=== PATIENT | male | born 1945 | race Native Hawaiian/Other Pacific Islander ===

== ENCOUNTER 2017-09-17 21:46 | Inpatient (IN) | payer OTHER, MEDICARE ==
[2017-09-17] VITALS (7 sets, daily range): BP systolic 70–112; BP diastolic 57–64; PULSE 60–161; RESP 14–18; O2SAT 95–100
[~2017-09-17] VITALS: Ht 175.3 cm; Wt 59.6 kg
[~2017-09-17 21:46] MED LIST: AMLO10 PO; ASPI81 PO; ATOR40TA PO; CARV3.12 PO; DOCU1CAP39 PO; ISOS20TA38 PO; JANU50TA PO; LOTE10TA PO; PIOG15 PO; SYNT75TA PO; ZOCO40TA PO
[2017-09-17] MEDS ORDERED: KETAMINE HCL 500 MG/5 ML VIAL ONE (22:02)
[2017-09-17] MEDS ORDERED: SODIUM CHLOR 0.9% 1000 ML INJ 1,000 ML IV ONE (22:13)
[2017-09-17] MEDS ORDERED: ASPIRIN 81 MG CHEW TAB PO STA (22:13)
[2017-09-17] MEDS ORDERED: NITROGLYCERIN 0.4 MG SL 25 TABS/BTL SL STA (22:13)
[2017-09-17] MEDS ORDERED: AMIODARONE INJ 150 MG in DEXTROSE 5% IN WATER 100ML INJ 97 ML IV ONE ×2 (22:14)
[2017-09-17] MEDS ORDERED: SODIUM CHLORIDE 0.9% FLUSH 10 ML FLUSH IVF PRN ×2 (22:15)
[2017-09-17] MEDS ORDERED: NITROGLYCERIN-D5W 50 MG/250 ML 250 ML IV PRN (22:15)
[2017-09-17] MEDS ORDERED: KETAMINE HCL 500 MG/5 ML VIAL IV PUSH ONE (22:15)
[2017-09-17 22:28] LABS: BASOPHIL # 0.1 TH/MM3 (0-0.2); BASOPHIL % 0.7 % (0.0-2.0); EOSINOPHIL # 0.6 TH/MM3 (0-0.4); HEMATOCRIT 41.9 % (39.0-51.0); HEMOGLOBIN 13.9 GM/DL (13.0-17.0); LYMPH % 33.4 % (9.0-44.0); MEAN CORPUSCULAR HEMOGLOBIN 28.9 PG (27.0-34.0); MEAN CORPUSCULAR HGB CONC 33.2 % (32.0-36.0); MEAN PLATELET VOLUME 9.7 FL (7.0-11.0); MONO % 10.2 % (0.0-8.0); MONOCYTE # 1.2 TH/MM3 (0-0.9); NEUT % 50.7 % (16.0-70.0); PLATELET COUNT 179 TH/MM3 (150-450); RED BLOOD COUNT 4.82 MIL/MM3 (4.50-5.90); WHITE BLOOD COUNT 11.8 TH/MM3 (4.0-11.0)
[2017-09-17] MEDS ORDERED: AMIODARONE INJ 450 MG in DEXTROSE 5% IN WATE(EXCEL) INJ 241 ML IV SCH ×2 (22:29)
--- NOTE | 2017-09-17 22:29 | RADRPT ---
EXAM DATE/TIME: 09/17/2017 22:02 [place] COMPARISON: No previous studies available for comparison. INDICATIONS : Chest pain. MEDICAL HISTORY : Hypertension. Diabetes SURGICAL HISTORY : CABG. Pacemaker. ENCOUNTER: Initial ACUITY: 1 day PAIN SCORE: Non-responsive. LOCATION: Bilateral chest FINDINGS: No infiltrate, effusion or pneumothorax. Heart size within normal limits. Patient has had previous median sternotomy. There is a cardiac pacer /defibrillator. CONCLUSION: No evidence of acute cardiopulmonary disease. Eliazar Up MD on September 17, 2017 at 22:26 Board Certified Radiologist. This report was verified electronically.
[2017-09-17 22:46] LABS: INTERNATIONAL NORMALIZED RATIO 1.1 RATIO; PROTHROMBIN TIME - PATIENT 11.6 SEC (9.8-11.6)
[2017-09-17 22:47] LABS: CALCIUM 8.4 MG/DL (8.5-10.1); MAGNESIUM 2.2 MG/DL (1.5-2.5)
--- NOTE | 2017-09-17 22:48 | PD ---
HPI Chief Complaint: Chest Pain Time Seen by Provider: 21:53 Travel History International Travel<30 days: No Contact w/Intl Traveler<30days: No Traveled to known affect area: No History of Present Illness HPI History is obtained primarily from the , there is some language barrier, patient is critically ill on presentation limiting some of the history. 71-year-old man, from records has a history of CAD, hypertension, hyperlipidemia. later gives history that he is CHF with an EF of about 20% . He follows with Dr. Moran. Patient apparently was well until dinner tonight he had an episode where he twitched somnolent and slumped over. shook him and he quickly revived. States he felt okay at that time. They went to bed a began feeling progressively weaker, and feeling poorly, and asked to be taken to the hospital. Patient reports some chest pain shortness of breath and feeling poorly. History Past Medical History Narrative Medical From review of records: CAD, CABG, on exam has AICD Hypertension on hyperlipidemia Diabetes Hypothyroidism SBO Tetanus Vaccination: Unknown Influenza Vaccination: No Social History Alcohol Use: No Tobacco Use: No Allergies-Medications (Allergen,Severity, Reaction): Coded Allergies: No Known Allergies (Verified , 03/15/16) Reported Meds & Prescriptions Reported Meds & Active Scripts Active Colace 100 Mg Cap (Docusate Sodium) 100 Mg Cap 100 Mg PO BID Don't take if you have diarrhea. Reported Actos 15 mg (Pioglitazone HCl) 15 Mg Tab 1 Tab PO DAILY Carvedilol 3.125 mg (Carvedilol) 3.125 Mg Tab 1 Tab PO BID Januvia (Sitagliptin Phosphate) 50 Mg Tab 50 Mg PO DAILY Synthroid 75 mcg (Levothyroxine Sodium) 75 Mcg Tab 25 Mcg PO DAILY Atorvastatin 40 mg (Atorvastatin Calcium) 40 Mg Tab 40 Mg PO HS Isosorbide Mononitrate 20 Mg Tab 30 Mg PO DAILY Norvasc (Amlodipine Besylate) 10 Mg Tab 10 Mg PO DAILY Zocor 40 mg (Simvastatin) 40 Mg Tab 40 Mg PO HS Aspirin 81 Mg Tab 81 Mg PO DAILY Lotensin (Benazepril HCl) 10 Mg Tab 10 Mg PO DAILY Review of Systems ROS Limitations: Clinical Condition Physical Exam Narrative GENERAL: Ill-appearing 71-year-old man, SKIN: Clammy, mottled. HEAD: Atraumatic. Normocephalic. EYES: Pupils equal and round. No scleral icterus. No injection or drainage. ENT: No nasal bleeding or discharge. Mucous membranes pink and moist. NECK: Trachea midline. No JVD. CARDIOVASCULAR: Thready pulses, extremely rapid. Poorly perfused. RESPIRATORY: Tachypnea, mild/moderate respiratory distress. GASTROINTESTINAL: Abdomen soft, non-tender, nondistended. Hepatic and splenic margins not palpable. MUSCULOSKELETAL: No obvious deformities. No edema. NEUROLOGICAL: Little bit listless was a some decreased alertness. Moves all extremities. Data Data Last Documented VS Vital Signs Date Time Temp Pulse Resp B/P (MAP) Pulse Ox O2 Delivery O2 Flow Rate FiO2 09/17/17 23:44 60 16 106/64 (78) 99 Nasal Cannula 2.00 Orders Orders Ketamine Inj (Ketalar Inj) (09/17/17 22:02) Troponin I (09/17/17 22:13) Ckmb (Isoenzyme) Profile (09/17/17 22:13) Complete Blood Count With Diff (09/17/17 22:13) I-Stat Profile (09/17/17 22:13) I-Stat Creatinine (09/17/17 22:13) Calcium (09/17/17 22:13) Magnesium (Mg) (09/17/17 22:13) Prothrombin Time / Inr (Pt) (09/17/17 22:13) Act Partial Throm Time (Ptt) (09/17/17 22:13) B-Type Natriuretic Peptide (09/17/17 22:13) Chest, Single Ap (09/17/17 22:13) Electrocardiogram (09/17/17 22:13) Oxygen Administration (09/17/17 22:13) Iv Access Insert/Monitor (09/17/17 22:13) Oximetry (09/17/17 22:13) Sodium Chlor 0.9% 1000 Ml Inj (Ns 1000 M (09/17/17 22:13) Sodium Chloride 0.9% Flush (Ns Flush) (09/17/17 22:15) Aspirin Chew (Aspirin Chew) (09/17/17 22:13) Nitroglycerin Sl (Nitrostat Sl) (09/17/17 22:13) Nitroglycerin-D5w 50 Mg/250 Ml (Nitrogly (09/17/17 22:15) Ketamine Inj (Ketalar Inj) (09/17/17 22:15) Ecg Monitoring (09/17/17 22:14) Blood Pressure (09/17/17 22:14) Vital Signs (09/17/17 22:14) Iv Access Insert/Monitor (09/17/17 22:14) Dextrose 5% In Wate... W/Amiodarone Inj (09/17/17 22:14) Dextrose 5% In Wate... W/Amiodarone Inj (09/17/17 22:29) Sodium Chloride 0.9% Flush (Ns Flush) (09/17/17 22:15) Electrocardiogram (09/17/17 ) Electrocardiogram (09/17/17 ) Comprehensive Metabolic Panel (09/17/17 22:28) Consult Cardiology (09/18/17 ) Cbc No Diff, Includes Plts (09/19/17 05:00) Cbc No Diff, Includes Plts (09/20/17 05:00) Cbc No Diff, Includes Plts (09/21/17 05:00) Cbc No Diff, Includes Plts (09/22/17 05:00) Cbc No Diff, Includes Plts (09/23/17 05:00) Cbc No Diff, Includes Plts (09/24/17 05:00) Cbc No Diff, Includes Plts (09/25/17 05:00) Basic Metabolic Panel (Bmp) (09/19/17 05:00) Basic Metabolic Panel (Bmp) (09/20/17 05:00) Basic Metabolic Panel (Bmp) (09/21/17 05:00) Basic Metabolic Panel (Bmp) (09/22/17 05:00) Basic Metabolic Panel (Bmp) (09/23/17 05:00) Basic Metabolic Panel (Bmp) (09/24/17 05:00) Basic Metabolic Panel (Bmp) (09/25/17 05:00) ^ Medication Admin Instruction (09/18/17 00:26) Notify Dr: Other (09/18/17 00:26) Potassium Chlor 40 Meq Premix (Kcl 40 Me (09/18/17 00:30) Potassium Chlor 20 Meq Premix (Kcl 20 Me (09/18/17 00:30) Potassium Chloride Eff (K-Lyte Cl Eff) (09/18/17 00:30) Potassium Chlor 40 Meq Premix (Kcl 40 Me (09/18/17 00:30) Potassium Chlor 20 Meq Premix (Kcl 20 Me (09/18/17 00:30) Magnesium Sulfate Inj (Magnesium Sulfate (09/18/17 00:30) Magnesium Oxide (Mag-Ox) (09/18/17 00:30) Magnesium Sulfate Inj (Magnesium Sulfate (09/18/17 00:30) Potassium Phosphate (K-Phos) (09/18/17 00:30) Sodium Phosphate Inj (Sodium Phosphate I (09/18/17 00:30) Potassium Phosphate (K-Phos) (09/18/17 00:30) Potassium Phosphate Inj (Potassium Phosp (09/18/17:30) Inpatient Certification (09/18/17:) Resp Ezpap/Pep Therapy (09/18/17:) Resp Acapella/Pep/Chest Vibra (09/18/17:) Resp Incentive Spirometry (09/18/17:) Code Status (09/18/17:) Vital Signs (Adult) FAROOQ.Q1H (09/18/17:26) Activity Bed Rest (09/18/17:) Elevate Head Of Bed (09/18/17:) Neuro Checks . ORDERED (09/18/17:) Acetaminophen (Tylenol) (09/18/17 00:30) Albuterol-Ipratropium Neb (Duoneb Neb) (09/18/17 00:30) Cabinet Abrasive Sandblaster / Telemetry FAROOQ.Q8H (09/18/17:26) Heparin Inj (Heparin Inj) (09/18/17 00:30) Scd Bilateral/Knee High FAROOQ.BID (09/18/17 00:26) ^ Initiate Protocol (09/18/17:) Instruction (09/18/17:) [facility] Nursing Information (09/18/17 00:30) Chlorhexidine 2% Cloth (Chlorhexidine 2% (09/18/17 04:00) Chlorhexidine 2% Cloth (Chlorhexidine 2% (09/18/17 00:30) Mrsa Pcr Surveillance (09/18/17 00:26) Docusate Sodium-Senna (Shayy-Colace) (09/18/17 09:00) Magnesium Hydroxide Liq (Milk Of Magnesi (09/18/17 00:30) Diet Clear Liquid (09/18/17 Breakfast) Amlodipine (Norvasc) (09/18/17 09:00) Aspirin Chew (Aspirin Chew) (09/18/17 09:00) Carvedilol (Coreg) (09/18/17 09:00) Isosorbide Mononitrate (Ismo) (09/18/17 09:00) Levothyroxine (Synthroid) (09/18/17 09:00) (Nf) Atorvastatin 40 Mg (09/18/17 21:00) (Nf) Benazepril Hcl (Lotensin) (09/18/17 09:00) Bedside Glucose FAROOQ.CSUGAR&03 (09/18/17 00:30) Blood Glucose Goal (Criteria) (09/18/17 00:30) Hypoglycemia 51 - 69 Mg/Dl (09/18/17 00:30) Hypoglycemia 50 Mg/Dl Or < (09/18/17 00:30) Notify Dr: Other (09/18/17 00:30) Dextrose 50% In Josue (Vial) Inj (D50w (Vi (09/18/17 00:30) Insulin Human Reg Supp Scale (Novolin R (09/18/17 03:00) Admit Order (Ed Use Only) (09/18/17 ) Labs Laboratory Tests Test 09/17/17 22:10 White Blood Count 11.8 TH/MM3 Red Blood Count 4.82 MIL/MM3 Hemoglobin 13.9 GM/DL Bedside Hemoglobin 14.6 G/DL Hematocrit 41.9 % Bedside Hematocrit 43.0 % Mean Corpuscular Volume 87.0 FL Mean Corpuscular Hemoglobin 28.9 PG Mean Corpuscular Hemoglobin Concent 33.2 % Red Cell Distribution Width 15.0 % Platelet Count 179 TH/MM3 Mean Platelet Volume 9.7 FL Neutrophils (%) (Auto) 50.7 % Lymphocytes (%) (Auto) 33.4 % Monocytes (%) (Auto) 10.2 % Eosinophils (%) (Auto) 5.0 % Basophils (%) (Auto) 0.7 % Neutrophils # (Auto) 6.0 TH/MM3 Lymphocytes # (Auto) 4.0 TH/MM3 Monocytes # (Auto) 1.2 TH/MM3 Eosinophils # (Auto) 0.6 TH/MM3 Basophils # (Auto) 0.1 TH/MM3 CBC Comment AUTO DIFF Differential Comment AUTO DIFF CONFIRMED Platelet Estimate NORMAL Platelet Morphology Comment NORMAL Acanthocytes OCC Keratocytes OCC Prothrombin Time 11.6 SEC Prothromb Time International Ratio 1.1 RATIO Activated Partial Thromboplast Time 27.3 SEC Bedside Sodium 137 MMOL/L Blood Urea Nitrogen 18 MG/DL Creatinine 2.24 MG/DL Random Glucose 282 MG/DL Total Protein 7.5 GM/DL Albumin 3.5 GM/DL Calcium Level 8.6 MG/DL Alkaline Phosphatase 75 U/L Aspartate Amino Transf (AST/SGOT) 19 U/L Alanine Aminotransferase (ALT/SGPT) 17 U/L Total Bilirubin 0.4 MG/DL Sodium Level 135 MEQ/L Potassium Level 4.7 MEQ/L Chloride Level 104 MEQ/L Carbon Dioxide Level 24.0 MEQ/L Bedside Potassium 4.7 MMOL/L Bedside Chloride 102 MMOL/L Anion Gap 7 MEQ/L Bedside Blood Urea Nitrogen 19 MG/DL Bedside Creatinine 2.0 MG/DL Estimat Glomerular Filtration Rate 29 ML/MIN Bedside Glucose 275 MG/DL Magnesium Level 2.2 MG/DL Total Creatine Kinase 96 U/L Troponin I 0.44 NG/ML B-Type Natriuretic Peptide 381 PG/ML MDM Medical Decision Making Medical Screen Exam Complete: Yes Emergency Medical Condition: Yes Interpretation(s) My review of initial EK: Regular wide-complex rhythm, concern for tachycardia with aberrancy and ST elevations, particularly given the appearance of V4, 3 and aVF. Favor ventricular tachycardia however. Early in the tracing seen in lead 2 there appears to be a fusion complex would suggest V. tach. My review of repeat EKG following cardioversion at 2205, sinus tachycardia at a rate of 96, irregular narrow complex rhythm rate 96, likely sinus although P waves are difficult to completely visualize, LVH with lateral T wave inversions My review of repeat EKG at 2258, ventricular paced at a rate of 74. Chest x-ray: No evidence of acute cardiopulmonary disease. LABS: CBC remarkable for mildly elevated white count. Point of care chemistries remarkable for mildly elevated creatinine, mildly elevated glucose Troponin BNP Coags unremarkable. Differential Diagnosis STEMI, V. tach, electrolyte abnormality, other Narrative Course Medical decision making the 71-year-old man, presents via private vehicle, ill-appearing, with abnormal EKG suggestive of V. tach versus less likely tachycardia with aberrancy or ST elevations. STEMI alert was called after reviewed the patient's initial EKG. Patient was markedly hypotensive, with chest pain. Amiodarone was given. Decision was made to proceed with emergent cardioversion. Patient was given 150 mg of ketamine for sedation, underwent synchronized cardioversion at 200 J. Patient responded well. He did have a period of desaturation immediately related to the ketamine her to procedure. This was short-lived, lasting seconds with a katy in the 60s SPO2. This resolved with nonrebreather and time. Does not require any assisted ventilation. Repeat EKG was performed. I discussed with Dr. Orr, reception manager STEMI editor news. Decision was made given repeat EKG to cancel STEMI alert. Amiodarone drip will be continued. We' ll start heparin pending platelet count. Admission to the ICU. Critical Care Narrative Aggregate critical care time was 40 minutes. Time to perform other separately billable procedures was not included in the critical care time. My time did not include minutes spent treating any other patients simultaneously or on activities that did not directly contribute to the patient's treatment. The services I provided to this patient were to treat and/or prevent clinically significant deterioration that could result in: , respiratory failure, MN, unrecognized arrhythmia. I provided critical care services requiring my management, as noted below: Chart data review, documentation time, medication orders and management, vital sign assessments/reviewing monitor data, ordering and reviewing lab tests, ordering and interpreting/reviewing x-rays and diagnostic studies, care of the patient and discussion of the patient with the admitting physicians. Procedures Procedure Narrative After the risks and benefits were discussed the following procedure was performed: MODERATE SEDATION: The patient was placed on a alarm security or surveillance monitor and pulse oximetry. An ambu bag and suction was immediately available at bedside. The patient was monitored by the nurse. Oxygen saturation, heart rate and blood pressure were monitored. Procedural sedation was acheived using ketamine. The patient was observed until awake and alert. Procedural Sedation time in attendance was 15 minutes. SYNCHRONIZED CARDIOVERSION: Patient required emergent cardioversion due to unstable V. tach. Pads were placed. Patient was sedated with ketamine. Cigarettes cardioversion was undertaken with at 200 J. Patient responded well. Short period of hypoxia likely related to apnea resolve spontaneously without need for assisted ventilation. Diagnosis Primary Impression: Ventricular tachycardia Admitting Information Admitting Physician Requests: Admit Emanuel Keith MD Sep 17, 2017 22:48
[2017-09-17 22:50] LABS: TROPONIN I 0.44 NG/ML (0.02-0.05)
[2017-09-17 22:58] LABS: ACANTHOCYTES OCC (NORMAL); KERATOCYTES OCC (NORMAL)
[2017-09-18] VITALS (10 sets, daily range): BP systolic 111–131; BP diastolic 57–78; PULSE 59–60; RESP 16–22; TEMP 98.2–98.7; O2SAT 94–97
[2017-09-18 00:11] LABS: ALBUMIN 3.5 GM/DL (3.4-5.0); ALT (GPT) 17 U/L (12-78); AST (GOT) 19 U/L (15-37); BLOOD UREA NITROGEN 18 MG/DL (7-18); CALCIUM 8.6 MG/DL (8.5-10.1); CHLORIDE 104 MEQ/L (98-107); CREATININE 2.24 MG/DL (0.60-1.30); GLOMERULAR FILTRATION RATE 29 ML/MIN (>89); GLUCOSE,RANDOM 282 MG/DL (74-106); SODIUM (NA) 135 MEQ/L (136-145)
[2017-09-18 00:14] LABS: ALKALINE PHOSPHATASE 75 U/L (45-117); TOTAL BILIRUBIN ADULT 0.4 MG/DL (0.2-1.0); TOTAL PROTEIN 7.5 GM/DL (6.4-8.2)
[2017-09-18] MEDS ORDERED: POTASSIUM PHOSPHATE MONOBASIC 500 MG TAB PO PRN (00:30)
[2017-09-18] MEDS ORDERED: POTASSIUM CHLORIDE 25 MEQ EFFERVESCENT TAB PO PRN (00:30)
[2017-09-18] MEDS ORDERED: ACETAMINOPHEN 325 MG TAB PO PRN (00:30)
[2017-09-18] MEDS ORDERED: POTASSIUM CHLOR 40 MEQ PREMIX 100 ML IV PRN ×2 (00:30)
[2017-09-18] MEDS ORDERED: RESP: ALBUTEROL 2.5 MG/IPRATROPIUM 0.5 MG NEB (PRN) INH (00:30)
[2017-09-18] MEDS ORDERED: MAGNESIUM SULFATE INJ 4 GM in SODIUM CHLORIDE 0.9% INJ 92 ML IV PRN (00:30)
[2017-09-18] MEDS ORDERED: MISCELLANEOUS NURSING INFORMATION XX SCH (00:30)
[2017-09-18] MEDS ORDERED: POTASSIUM CHLOR 20 MEQ PREMIX 100 ML IV PRN ×2 (00:30)
[2017-09-18] MEDS ORDERED: POTASSIUM PHOSPHATE INJ 30 MMOL in SODIUM CHLOR 0.9% 250 ML INJ 250 ML IV PRN (00:30)
[2017-09-18] MEDS ORDERED: DEXTROSE 50% IN WATER 50 ML VIAL(D50) IV PUSH PRN (00:30)
[2017-09-18] MEDS ORDERED: MAGNESIUM OXIDE 400 MG TAB PO PRN (00:30)
[2017-09-18] MEDS ORDERED: CHLORHEXIDINE GLUCONATE 2 % 1 PACK (2 CLOTHS) TOP PRN (00:30)
[2017-09-18] MEDS ORDERED: SODIUM PHOSPHATE INJ 30 MMOL in SODIUM CHLOR 0.9% 250 ML INJ 240 ML IV PRN (00:30)
[2017-09-18] MEDS ORDERED: MAGNESIUM SULFATE INJ 2 GM in SODIUM CHLORIDE 0.9% INJ 96 ML IV PRN (00:30)
[2017-09-18] MEDS ORDERED: MAGNESIUM HYDROXIDE SUSP 30 ML CUP PO PRN (00:30)
[2017-09-18] MEDS ORDERED: POTASSIUM PHOSPHATE MONOBASIC 500 MG TAB PO/TUBE PRN (00:30)
--- NOTE | 2017-09-18 00:38 | HHI.HP ---
HPI Service Critical Care Medicine Primary Care Physician Unknown Admission Diagnosis V. tach Diagnosis: Chief Complaint: fatigue Travel History International Travel<30 Days: No Contact w/Intl Traveler <30 Da: No Traveled to Known Affected Are: No History of Present Illness The patient has a significant language barrier, and cannot answer a full detailed history. The patient's has left for the night and so additional information is not obtainable from her, as was previously documented by the ER physician. The history is obtained by the medical record. This is a 71yM with history of CAD, HTN, HLD and s/p AICD placement, with EF ~20%. He is a patient of Dr. De La Cruz. He presented to the ED with complaints of sudden onset of altered mental status and "slumping over" at dinner. On arrival to the emergency department, he was found to be in a wide-complex tachycardia at a rate of ~160. He was hypotensive with this and was electrically cardioverted back into a narrow complex rhythm. Cardiology was called and did not feel this was a STEMI or needed emergent heart catheterization. The patient does appear to complain of chest pain post-cardioversion, but difficult to tell whether this is secondary to cardioversion or not. According to reports, he had not complained of chest pain prior to cardioversion. Review of Systems ROS Limitations: Language Barrier Past Family Social History Allergies: Coded Allergies: No Known Allergies (Verified , 03/15/16) Past Medical History CAD HTN HLD DM Hypothyroidism Small bowel obstruction Past Surgical History CABG AICD Reported Medications Colace 100 Mg Cap (Docusate Sodium) 100 Mg Cap 100 Mg PO BID Don't take if you have diarrhea. Actos 15 mg (Pioglitazone HCl) 15 Mg Tab 1 Tab PO DAILY Carvedilol 3.125 mg (Carvedilol) 3.125 Mg Tab 1 Tab PO BID Januvia (Sitagliptin Phosphate) 50 Mg Tab 50 Mg PO DAILY Synthroid 75 mcg (Levothyroxine Sodium) 75 Mcg Tab 25 Mcg PO DAILY Atorvastatin 40 mg (Atorvastatin Calcium) 40 Mg Tab 40 Mg PO HS Isosorbide Mononitrate 20 Mg Tab 30 Mg PO DAILY Norvasc (Amlodipine Besylate) 10 Mg Tab 10 Mg PO DAILY Zocor 40 mg (Simvastatin) 40 Mg Tab 40 Mg PO HS Aspirin 81 Mg Tab 81 Mg PO DAILY Lotensin (Benazepril HCl) 10 Mg Tab 10 Mg PO DAILY Active Ordered Medications See MAR Family History reviewed and found to be noncontributory to his acute illness. Social History denies tob or etoh Physical Exam Vital Signs Vital Signs Date Time Temp Pulse Resp B/P (MAP) Pulse Ox O2 Delivery O2 Flow Rate FiO2 09/17/17 23:44 60 16 106/64 (78) 99 Nasal Cannula 2.00 09/17/17 23:00 61 114/70 09/17/17 22:43 65 104/65 09/17/17 22:27 16 99 Nasal Cannula 2.00 09/17/17 22:23 16 96 Nasal Cannula 2.00 09/17/17 22:20 81 14 112/64 (80) 100 Non-Rebreather 09/17/17 22:20 98 Non-Rebreather 15.00 09/17/17 22:19 161 139/96 09/17/17 22:03 161 18 70/57 (61) 98 09/17/17 21:55 161 18 96 Room Air 09/17/17 21:53 160 09/17/17 21:48 160 16 95 Physical Exam GENERAL: Frail elderly male, lying in bed, no acute distress HEENT: Normocephalic. Atraumatic. Pupils equal, round, reactive, conjugate. Mucous membranes are moist NECK: Trachea is midline. There is no JVD. CHEST: Unlabored. Equal chest rise. 1 L nasal cannula CARDIOVASCULAR: Normal rate, regular rhythm. Narrow complex rhythm in the 60s. Appears to be a paced rhythm. ABDOMEN: Soft, nontender, nondistended. No guarding. MUSCULOSKELETAL: Pulses 2+. No peripheral edema. NEUROLOGICAL: RASS -1. Arousing from sedation. No focal deficits. Laboratory Laboratory Tests Test 09/17/17 22:10 White Blood Count 11.8 Red Blood Count 4.82 Hemoglobin 13.9 Bedside Hemoglobin 14.6 Hematocrit 41.9 Bedside Hematocrit 43.0 Mean Corpuscular Volume 87.0 Mean Corpuscular Hemoglobin 28.9 Mean Corpuscular Hemoglobin Concent 33.2 Red Cell Distribution Width 15.0 Platelet Count 179 Mean Platelet Volume 9.7 Neutrophils (%) (Auto) 50.7 Lymphocytes (%) (Auto) 33.4 Monocytes (%) (Auto) 10.2 Eosinophils (%) (Auto) 5.0 Basophils (%) (Auto) 0.7 Neutrophils # (Auto) 6.0 Lymphocytes # (Auto) 4.0 Monocytes # (Auto) 1.2 Eosinophils # (Auto) 0.6 Basophils # (Auto) 0.1 CBC Comment AUTO DIFF Differential Comment AUTO DIFF CONFIRMED Platelet Estimate NORMAL Platelet Morphology Comment NORMAL Acanthocytes OCC Keratocytes OCC Prothrombin Time 11.6 Prothromb Time International Ratio 1.1 Activated Partial Thromboplast Time 27.3 Bedside Sodium 137 Blood Urea Nitrogen 18 Creatinine 2.24 Random Glucose 282 Total Protein 7.5 Albumin 3.5 Calcium Level 8.6 Alkaline Phosphatase 75 Aspartate Amino Transf (AST/SGOT) 19 Alanine Aminotransferase (ALT/SGPT) 17 Total Bilirubin 0.4 Sodium Level 135 Potassium Level 4.7 Chloride Level 104 Carbon Dioxide Level 24.0 Bedside Potassium 4.7 Bedside Chloride 102 Anion Gap 7 Bedside Blood Urea Nitrogen 19 Bedside Creatinine 2.0 Estimat Glomerular Filtration Rate 29 Bedside Glucose 275 Magnesium Level 2.2 Total Creatine Kinase 96 Troponin I 0.44 B-Type Natriuretic Peptide 381 Result Diagram: 09/17/17220909/17/172209 Imaging Last Impressions Chest X-Ray 09/17/172212 Signed Impressions: Service Date/Time: Sunday, September 17, 2017 22:02 - CONCLUSION: No evidence of acute cardiopulmonary disease. Eliazar Up MD Caprini VTE Risk Assessment Caprini VTE Risk Assessment: Mod/High Risk (score >= 2) Caprini Risk Assessment Model Point Value = 1 Point Value = 2 Point Value = 3 Point Value = 5 Age 41-60 Minor surgery BMI > 25 kg/m2 Swollen legs Varicose veins or History of unexplained or recurrent spontaneous Oral contraceptives or hormone replacement Sepsis (< 1 month) Serious lung disease, including pneumonia (< 1 month) Abnormal pulmonary function Acute myocardial infarction Congestive heart failure (< 1 month) History of inflammatory bowel disease Medical patient at bed rest Age 61-74 Arthroscopic surgery Major open surgery (> 45 min) Laparoscopic surgery (> 45 min) Malignancy Confined to bed (> 72 hours) Immobilizing plaster cast Central venous access Age >= 75 History of VTE Family history of VTE Factor V Leiden Prothrombin [id number] Lupus anticoagulant Anticardiolipin antibodies Elevated serum homocysteine Heparin-induced thrombocytopenia Other congenital or acquired thrombophilia Stroke (< 1 month) Elective arthroplasty Hip, pelvis, or leg fracture Acute spinal cord injury (< 1 month) Prophylaxis Regimen Total Risk Factor Score Risk Level Prophylaxis Regimen 0-1 Low Early ambulation 2 Moderate Order ONE of the following: *Sequential Compression Device (SCD) *Heparin 5000 units SQ BID 3-4 Higher Order ONE of the following medications: *Heparin 5000 units SQ TID *Enoxaparin/Lovenox 40 mg SQ daily (WT < 150 kg, CrCl > 30 mL/min) *Enoxaparin/Lovenox 30 mg SQ daily (WT < 150 kg, CrCl > 10-29 mL/min) *Enoxaparin/Lovenox 30 mg SQ BID (WT < 150 kg, CrCl > 30 mL/min) AND/OR *Sequential Compression Device (SCD) 5 or more Highest Order ONE of the following medications: *Heparin 5000 units SQ TID (Preferred with Epidurals) *Enoxaparin/Lovenox 40 mg SQ daily (WT < 150 kg, CrCl > 30 mL/min) *Enoxaparin/Lovenox 30 mg SQ daily (WT < 150 kg, CrCl > 10-29 mL/min) *Enoxaparin/Lovenox 30 mg SQ BID (WT < 150 kg, CrCl > 30 mL/min) AND *Sequential Compression Device (SCD) Assessment and Plan Assessment and Plan Assessment: 71yM with cardiomyopathy and AICD placement who presents with hemodynamically significant V. Tach. Likely rate was too slow for AICD to fire. Will interrogate AICD in the AM. consult cardiology. continue amio drip. would consider lidocaine drip as second line agent if v. tach continues. trend troponins, although these almost certainly will rise given recent cardioversion. unlikely to be ACS: will not heparinize at this point. Admit to ICU for close monitoring. Hemodynamically Unstable Ventricular Tachycardia - consult cardiology: Dr. Miner or colleague - interrogate AICD in the AM - amiodarone drip - telemetry - admit to ICU Hypertension - continue anti-hypertensives Diabetes - SSI - hold oral hypoglycemics Hypothyroidism - continue home synthroid Hyperlipidemia - continue home statin SCDs, SQH no indication for GI prophylaxis at this time. Clear liquid diet in case procedures or additional cardioversions are needed. Admit to ICU. Saeed Mares MD Sep 18, 2017 00:38
[2017-09-18] MEDS: HEPARIN SODIUM - SQ 10,000 UNITS/ML VIAL SQ SCH ×3 (01:23→16:39)
[2017-09-18] MEDS: INSULIN NovoLIN REGULAR SUPPLEMENTAL SCALE SQ SCH ×5 (04:00→21:00)
[2017-09-18] MEDS: CHLORHEXIDINE GLUCONATE 2 % 1 PACK (2 CLOTHS) TOP SCH (04:00)
[2017-09-18] MEDS ORDERED: HEPARIN 25,000 UNITS-D5W 250 ML - PREMIX IV PRN (06:15)
[2017-09-18] MEDS: AMIODARONE INJ 450 MG in SODIUM CHLOR 0.9% (EXCEL) INJ 250 ML IV SCH ×2 (06:30→13:28)
[2017-09-18] MEDS ORDERED: LEVOTHYROXINE SODIUM 75 MCG TAB PO SCH (07:00)
[2017-09-18] MEDS ORDERED: ISOSORBIDE MONONITRATE 20 MG TAB PO SCH (07:00)
[2017-09-18] MEDS ORDERED: HEPARIN-NS/PF INJ 500 ML ONE (08:42)
[2017-09-18] MEDS ORDERED: MIDAZOLAM HCL 2 MG/2 ML VIAL ONE (08:54)
[2017-09-18] MEDS ORDERED: CARVEDILOL 3.125 MG TAB PO SCH (09:00)
[2017-09-18] MEDS ORDERED: LISINOPRIL 10 MG TAB PO SCH (09:00)
[2017-09-18] MEDS: DOCUSATE SODIUM 50 MG/SENNA 8.6 MG TAB PO SCH ×2 (09:00→21:00)
--- NOTE | 2017-09-18 09:15 | MB ---
cc: RADHA LINARES M.D. DATE OF CONSULTATION: 09/18/2017 REASON FOR CONSULTATION: Abnormal cardiac enzymes, ventricular tachycardia. REASON FOR CONSULTATION Abnormal cardiac enzymes, ventricular tachycardia. HISTORY OF PRESENT ILLNESS History is somewhat difficult to elicit from the patient due to language barrier. He is a 71-year-old male with a history of severe ischemic cardiomyopathy, coronary artery disease, hypertension, paroxysmal atrial fibrillation, paroxysmal ventricular tachycardia, who apparently was brought into the hospital after possible near-loss of consciousness. In the emergency department, he was found to be in a wide-complex tachycardia and cardioverted to a paced rhythm. The patient does state he may have lost consciousness briefly last evening. He also states he has been having bilateral chest discomforts most of the day yesterday and now, right-sided chest pains this morning. He denies shortness of breath, pedal edema, palpitations, paroxysmal nocturnal dyspnea, fevers. He reports compliance with his medications. Troponin level this morning was found to be 27.1. PAST MEDICAL HISTORY 1. Coronary artery disease status post inferior myocardial infarction January 2006 with cardiac catheterization at that time showing severe three-vessel coronary artery disease leading to bypass surgery with a left internal mammary artery to the LAD, vein graft to the diagonal, vein graft to the obtuse marginal, vein graft to the posterior descending artery. All of his vein grafts have subsequently been found to be totally occluded. On his last heart catheterization 05/2011, there was minimal left main disease, totally occluded proximal LAD, 99% proximal and mid diagonal disease, 70% ostial obtuse marginal (small), diffuse 30-40% right coronary disease, patent left internal mammary artery to the LAD. 2. Status post Biotronik AICD implant July 2011. 3. Hyperlipidemia. 4. Hypertension. 5. Paroxysmal atrial fibrillation. 6. Paroxysmal ventricular tachycardia after his bypass surgery. MEDICATIONS His cardiac medications at home: 1. Amlodipine 10 mg q.d. 2. Aspirin 81 mg q.d. 3. Benazepril HCT 07/04.5 one q.d. 4. Carvedilol 3.125 mg b.i.d. 5. Isosorbide mononitrate 30 mg q.d. 6. Simvastatin 40 mg q.h.s. 7. Xarelto 20 mg q.d. ALLERGIES NO KNOWN DRUG ALLERGIES. FAMILY HISTORY Noncontributory. SOCIAL HISTORY The patient is a former smoker. There is no history of alcohol abuse. REVIEW OF SYSTEMS Review of systems as in the history of present illness, otherwise negative or noncontributory. He also denies abdominal pain, melena, dyspepsia, headache, bright red blood per rectum. PHYSICAL EXAMINATION On physical examination: VITAL SIGNS: Blood pressure 110/66 with a pulse of 60, respirations 18. GENERAL: In general, he is a well-developed thin, male in no acute distress. HEENT: On HEENT examination, jugular venous pressure is normal. Carotid pulses are 2+ bilaterally and without bruits. CHEST: Examination of the chest reveals clear lung stanley. CARDIAC: On cardiac examination he has a regular rhythm and rate without S3-S4 or murmur. ABDOMEN: On abdominal examination he has a soft, nontender abdomen. Bowel sounds are present. There is no definite hepatosplenomegaly. EXTREMITIES: Examination of the extremities reveals no clubbing, cyanosis or edema. EKG from 09/17/17 at 09:56 p.m. shows wide-complex tachycardia, ST abnormality, consider acute anterolateral infarct. LABORATORY DATA: Laboratory data includes: troponin 27.10, BUN 18, creatinine 2.24, potassium 4.7, CK 96, WBC 11.8, hemoglobin 13.9; platelets 179. X-RAYS: Chest x-ray shows no acute disease. IMPRESSION Acute myocardial infarction, sustained ventricular tachycardia in a 71-year-old male with a history of severe ischemic cardiomyopathy, coronary disease, paroxysmal atrial fibrillation, hypertension, hyperlipidemia. At this time, he appears to have ongoing chest discomforts. His initial EKG did show probable ventricular tachycardia. Despite the wide-complex morphology, there is suggestion of anterolateral ST elevation on EKG, and the patient continues to have chest pains at this time. I doubt the elevation in troponin is due to the defibrillatory shock he received last night. He does have renal insufficiency, contributing in part to the troponin rise. Interrogation of his AICD is pending. At this point, there is no definite evidence for congestive heart failure. In light of his ongoing chest pains and substantial rise in his troponin level this morning, he has been recommended cardiac catheterization with possible percutaneous coronary intervention. The increased risk of dye induced renal failure has been emphasized to the patient. He agrees to proceed. RECOMMENDATIONS 1. Cardiac catheterization this morning with attempts to minimize dye load and using the DyeVert device. 2. Continue his usual home cardiac medications except hold Xarelto for now and stop his ELIZABETH inhibitor. 3. Agree with continuing intravenous amiodarone. MD WANG Alvarez/DORCAS /8:08 AM /8:32 AM MTDLedy
[2017-09-18] MEDS ORDERED: SODIUM CHLOR 0.9% 1000 ML INJ 1,000 ML IV SCH (09:21)
[2017-09-18] MEDS ORDERED: SODIUM CHLOR 0.9% 250 ML INJ 250 ML IV PRN (09:30)
[2017-09-18] MEDS ORDERED: ATROPINE SULFATE 1 MG/ML VIAL IV PRN (09:30)
--- NOTE | 2017-09-18 09:37 | MA ---
cc: JAYDEN LINARES DATE 09/18/2017 PROCEDURE Selective coronary and graft angiography. PROCEDURE NOTE The patient was brought to the cardiac catheterization laboratory in a fasting state after having signed informed consent with ongoing chest pains and a troponin level of 27.1. The right groin was prepped and draped as per policy and anesthetized with 1% lidocaine. Arterial access was obtained via the right femoral artery and a 6-Honduran sheath placed. Coronary arteriography was performed using 6-Honduran Sandi left 4.0 and right progressive catheters. The left internal mammary artery was engaged with the progressive right catheter. Left ventriculography was not done due to the patient's elevated creatinine. There were no apparent immediate complications. His arteriotomy site was closed with Vascade with the achievement of good hemostasis. HEMODYNAMIC DATA Aorta 110/60. CORONARY ARTERIOGRAPHY Attempts were made to minimize dye load due to the patient's elevated creatinine. A divert device was also used. A total of 57 cc of contrast was used for the case. The left main has approximately 40% distal stenosis. The left anterior descending is totally occluded proximally. A diffusely and severely diseased small diagonal arises from the proximal LAD, and this diagonal has 90-95% proximal and mid lesions. The left circumflex is a relatively small vessel giving rise to a medium-sized obtuse marginal. A branch off this obtuse marginal is probably totally occluded near its origin. The proximal left circumflex has up to 25% stenosis. The proximal obtuse marginal has up to 30% stenosis. The right coronary artery is a large dominant vessel which is diffusely diseased. There is likely up to 30% stenosis proximally and in its midportion. There is up to 20% disease distally past the takeoff of the posterior descending artery which is a large vessel with minimal luminal irregularities. GRAFT ANGIOGRAPHY The left internal mammary artery to the LAD is widely patent. The LAD, just distal to the anastomosis site, may have up to 35% stenosis. All of the patient's other bypass grafts are known to be totally occluded including three separate vein grafts to the diagonal, right coronary, obtuse marginal. LEFT VENTRICULOGRAPHY Not done. CONCLUSIONS 1. Severe two-vessel coronary artery disease. 2. Right dominant system. 3. Patent left internal mammary artery to the LAD, known chronically totally occluded vein grafts to the diagonal, right coronary, obtuse marginal. DISCUSSION It appears the patient's coronary and graft anatomy is largely unchanged from his last heart catheterization in 2010. He will be continued on medical therapy. MD WANG Alvarez/JENNIFER /9:01 AM /9:14 AM BRANDEE
--- NOTE | 2017-09-18 09:48 | CATHPROC ---
[facility] HIS Report Study Information Study Number Admission Scheduled Start Study Start [id number] Sep 18 2017 12:33AM 09/18/2017 Sep 18 2017 8:18AM [place] [facility] Cardiac Catheterization Admit Source Facility Department Emergency department [facility] [employer] Assistant Principal Physician and Clinical Staff Initial Ronald Marie Development Officer Rick RN, Weston RecordMary Carlson,MARCO TECH2 Scrub Laura Clifford,RT(R) Procedures Performed Procedure Location (Site) Vessel Name Coronary Angiograms LCA Left Coronary Coronary Angiograms LECHUGA-LAD Left Coronary Equipment Time Wet Plant Operator Description Size Mfg Part Number Used/Scraped TRANSDUCER, TRUWAVE [id number] 08:24 MCGEE MOON * Used W/STOCKCOCK *[id number] 09:09 [employer] MEDICAL VASCADE, FR6 CLOSURE SYSTEM FR 6\7 Used *[id number] *[id number] *[id number] 08:24 [employer] PACK, CCL CUSTOM * Used *[id number] 08:24 Fleck PACER PEN, SKIN DUAL W/ RULER * Used *[id number] 08:24 [employer] MEDICAL SHEATH, FR6.5 PRELUDE 11CM FR 6.5 038ACT Used *[id number] 08:24 [employer] MEDICAL WIRE, 3MMJ .035 180CM 180CM Used *[id number] 08:24 NAMIC MANIFOLD, 4 PORT * Used *[id number] 08:24 [employer] OMNIPAQUE, 350 MG, 150ML 150ML [id number] Used DYEVERT, CONTRAST HVOFF-RRS 08:33 [employer] NG Used MODULATION SYSTEM NG *[id number] 08:24 [facility] BLANKET,WARM AIR CCL * Used *[id number] Equipment Model, Serial, Lot Number and Expiration Data Description Model Number Serial Number Lot Number Expiration Date DYEVERT, CONTRAST MODULATION [id number] 07-12-2018 SYSTEM NG History: Current Medications Medication Dosage/Unit Route Frequency Last Date/Time Taken Actos ASA CARVEDILOL NORVASC LIPITOR Zocor Synthroid Imdur History: Allergies Allergy Reaction No Known Allergies History: Risk Factors Family History of Hypertension Dyslipidemia Previous OH Previous Heart Failure Premature CAD Yes Yes No Yes No Prior Valve Prior PCI Prior CABG Prior CABGDate Surgery No No Yes 02/22/2006 Cerebrovascular Peripheral Artery Chronic Lung On Dialysis Diabetes Diabetes Therapy Disease Disease Disease No No No No Yes Oral History: Symptoms/Diagnosis Selection Items Chest pain Palpitations History: CV Disease Selection Items Cardiomyopathy Known CAD History: Stress Tests Stress or Imaging Studies Performed No History: Other Disease Selection Items Renal Failure/Insufficiency History: OH/CV Data Previous CABG Date Previous OH Time 02/22/2006 11 Years History: Other Current Smoker Method No Cigarettes Labs Hgb (g/dl) Hct (%) WBC (l/cumm) Platelets (thousands) 11.60-17.00 35.00-51.00 4.00-11.00 150.00-450.00 13.9 41.9 11.8 179 Glucose (mg/dl) BUN (mg/dl) Creatinine (mg/dl) BUN:Creatinine (1:x) 74.00-106.00 7.00-18.00 0.50-1.30 10.00-20.00 282 18 2.2 8.2 Na (meq/l) K (meq/l) Cl (meq/l) CO2 (mmol/L) 136.00-145.00 3.50-5.10 98.00-107.00 21.00-32.00 135 4.7 104 24 PT (sec) PTT (sec) INR (PTT:PT) 9.80-11.60 24.30-30.10 0.90-1.10 11.6 27.3 1.1 Troponin I (ng/ml) CPK (u/l) 0.02-0.05 26.00-308.00 27.1 96 Medication Medication Total Dose (Bolus/Oral) Medication Total Dosage/Unit 1% XYLOCAINE 20 mL OXYGEN 2 l/min VERSED 2 mg Medications (Bolus/Oral) Medication Time Given Dosage/Unit Administered By Reason OXYGEN 09/18/2017 8:39:09 AM 2 l/min Patient arrived on 2 l/min OXYGEN via Nasal. VERSED 09/18/2017 8:56:50 AM 2 mg Weston Cbarera RN Patient arrived on 2 mg VERSED given by Weston Cabrera RN in Right Hand via Peripheral IV. Ordered by Ronald Leiva. 1% XYLOCAINE 09/18/2017 8:57:49 AM 20 mL Patient arrived on 20 mL 1% XYLOCAINE via Subcutaneous. Medication (Drip) Medication Time Given Dosage/Unit Concentration/Unit Diluent (ml) Solution Amiodarone Drip 09/18/2017 8:45:01 AM 0.5 mg/min 450 mg 250 D5W Patient arrived on 0.5 mg/min Amiodarone Drip in Right Antecubital via Peripheral IV. Pump/Drip Flow = 16.67 ml/hr using D5W with a concentration of 450 mg in 250 ml. IV Solutions 09/18/2017 8:45:35 AM 0 mL (IV) 500 NaCl .9 Patient arrived on IV Solutions in Right Hand via Peripheral IV. Pump/Drip Flow = 20 ml/hr using NaCl .9. NITROGLYCERIN DRIP 09/18/2017 8:46:05 AM 50 mcg/min 50 mg 250 D5W Patient arrived on 50 mcg/min NITROGLYCERIN DRIP in Right Hand via Peripheral IV. Pump/Drip Flow = 15 ml/hr using D5W with a concentration of 50 mg in 250 ml. NITROGLYCERIN DRIP 09/18/2017 9:02:50 AM 50 mcg/min 50 mg 250 D5W Patient arrived on 50 mcg/min NITROGLYCERIN DRIP given by Weston Cabrera RN in Right Hand via Periphera l IV. Pump/Drip Flow = 15 ml/hr using D5W with a concentration of 50 mg in 250 ml. Ordered by Ronald Miner. Hypotension Discontinued at 9:20. Initial Case Assessment Cardiovascular HR Rhythm NIBP Chest Pain 71 paced 125/75 2 Circulatory - Right Pulses Posterior Tibial Femoral 2 2 Scale (0,1,2,3,4,d) Circulatory - Left Pulses Posterior Tibial Femoral 2 2 Scale (0,1,2,3,4,d) Neurological State Oriented to time-place- Alert Moves all extremities person Respiration - General Respiration Rate SpO2 (%) O2 (lpm) (B/min) 18 95 2 Final Case Assessment Cardiovascular HR Rhythm NIBP 60 paced 107/58 Circulatory - Right Pulses Posterior Tibial Femoral 2 2 Scale (0,1,2,3,4,d) Circulatory - Left Pulses Posterior Tibial Femoral 2 2 Scale (0,1,2,3,4,d) Neurological State Oriented to time-place- Alert Moves all extremities person Respiration - General Respiration Rate SpO2 (%) O2 (lpm) (B/min) 19 96 2 Chronological Log Time Study Chronological Log 8:34:16 Patient arrived via Bed. 8:34:17 Patient Name, D.O.B, / Armband Verified By R.N. 8:34:17 Consent signed by the physician and the patient and verified by the [employer] Assistant Principal staff. 8:34:18 Pre-op and post- op instructions given; patient acknowledges understanding of instructions. 8:34:18 Verbal Stimulation=2 Physical Stimulation=2 Airway=2 Respiration=2 TOTAL=8. (0=absent, 1=darnell ited, 2=present) 8:34:19 Presedation assessment performed by [employer] Assistant Principal RN. 8:34:21 Immediate Presedation assesment performed by physician. 8:34:21 Patient has been NPO for More than 6Hrs. 8:34:22 Skin Breakdown-rt foot 8:34:25 Patient Warmer Placed on the Table. 8:34:26 Ayla Prominences Protected 8:34:27 A # 20 IV was noted in the Antecubital (right). Grade = patent 8:34:28 History and physical on the chart or being dictated. 8:34:40 Patient arrived with Heparin drip discontinued and Defibrillator pads placed prior to arriva l. 8:38:38 A # 20 IV was noted in the Hand (right). Grade = patent 8:38:40 A # 20 IV was noted in the Antecubital (left). Grade = not in use 8:39:09 Patient arrived on 2 l/min OXYGEN via Nasal. 8:41:49 Vitals capture stopped. Vitals capture started with the following parameters, Patient=Adult, Interval=5 min, Initial Pre dnnbm=561 mmHg, 8:44:46 Deflation Rate=5 mmHg, Cuff placed on Left Arm Patient arrived on 0.5 mg/min Amiodarone Drip in Right Antecubital via Peripheral IV. Pump/Drip Flow = 16.67 ml/hr 8:45:01 using D5W with a concentration of 450 mg in 250 ml. 8:45:28 HR=60 bpm, ZANW=864/75 mmhg, SpO2=95.0 %, Resp=18 B/min, Pain=2, Sandeep=10 8:45:35 Patient arrived on IV Solutions in Right Hand via Peripheral IV. Pump/Drip Flow = 20 ml/hr u sing NaCl .9. Patient arrived on 50 mcg/min NITROGLYCERIN DRIP in Right Hand via Peripheral IV. Pump/Drip Flow = 15 ml/hr using 8:46:05 D5W with a concentration of 50 mg in 250 ml. 8:46:25 Right groin prepped with 2% chlorhexidine, and draped after a 3 min. waiting time. Assessment: Initial Case, HR=71 BPM, Rhythm=paced, APOZ=244/75 mmhg, Chest Pain=2 Right Pulses: Post Tib=2, Femoral=2 8:50:00 Left Pulses: Post Tib=2, Femoral=2 Neurological: State=Alert, Ox3, MURCIA Respiration: Resp=18 B/min, SpO2=95 %, O2=2 lpm 8:50:18 MD responded 8:50:19 HR=60 bpm, CYLR=689/77 mmhg, SpO2=96.0 %, Resp=19 B/min, Pain=2, Sandeep=10 8:50:19 MD paged 8:52:10 MD arrived. 8:52:36 Pressure channel 1 zeroed. 8:52:39 Reference ECG taken 8:55:20 HR=60 bpm, NRHH=769/75 mmhg, SpO2=96.0 % Time Out. Correct patient, correct procedure, correct physician, power injector loaded, or not l oaded with contrast with 8:56:41 surgical team present. Time Out Concurred by MD and individual staff in procedure. 8:56:50 Patient arrived on 2 mg VERSED given by Weston Cabrera RN in Right Hand via Peripheral IV. Ord ered by Ronald Miner. 8:56:51 Case Start 8:57:49 Patient arrived on 20 mL 1% XYLOCAINE via Subcutaneous. 8:57:56 Access site was Right Femoral Artery. 8:58:03 A SHEATH, FR6.5 PRELUDE 11CM FR 6.5 was advanced into the Fem Art (right) using the Percuta neous technique. A JL 4.0 INFINITI CATHETER FR 6 was advanced over a wire. OMNIPAQUE, 350 MG, 150ML 150ML was us ed for 8:58:12 injections. Recorded Pressure: Ao, HR=60, Condition=Condition 1 8:58:46 (Aorta) Ao 109/59/79 8:59:18 The LCA was injected and visualized at various angles. OMNIPAQUE, 350 MG, 150ML 150ML used . 8:59:38 Catheter was removed A 3DRC INFINITI CATHETER FR 6 was advanced over a wire. OMNIPAQUE, 350 MG, 150ML 150ML was used for 8:59:58 injections. 9:00:21 HR=59 bpm, FGDR=918/63 mmhg, SpO2=95 %, Resp=18 B/min Patient arrived on 50 mcg/min NITROGLYCERIN DRIP given by Weston Cabrera RN in Right Hand via Per ipheral IV. 9:02:50 Pump/Drip Flow = 15 ml/hr using D5W with a concentration of 50 mg in 250 ml. Ordered by Ronald Smith. Hypotension Discontinued at 09/18/2017 9:20. 9:03:00 NIBP STAT measurement started. 9:03:31 HR=73 bpm, NIBP=82/51 mmhg, Resp=18 B/min 9:03:53 The LECHUGA-LAD was injected and visualized at various angles. OMNIPAQUE, 350 MG, 150ML 150ML used. 9:05:14 HR=59 bpm, NIBP=78/48 mmhg, SpO2=95.0 %, Resp=18 B/min 9:09:24 Catheter was removed 9:09:34 Case End 9:10:45 VASCADE, FR6 CLOSURE SYSTEM FR 6\7 placement in the Fem Art (right) 9:10:50 HR=60 bpm, PUVC=767/58 mmhg, SpO2=95.0 %, Resp=26 B/min 9:13:34 Sterile dressing applied to site 9:13:36 No case complications noted. 9:13:37 Cine recording checked. Assessment: Final Case, HR=60 BPM, Rhythm=paced, LLBH=870/58 mmhg Right Pulses: Post Tib=2, Femoral=2 9:13:43 Left Pulses: Post Tib=2, Femoral=2 Neurological: State=Alert, Ox3, MURCIA Respiration: Resp=19 B/min, SpO2=96 %, O2=2 lpm 9:15:18 HR=60 bpm, MVWR=859/65 mmhg, SpO2=96.0 %, Resp=20 B/min 9:18:15 Patient moved to bed. 9:18:25 Bedside Report will be given. 9:18:33 Vitals capture stopped. 9:20:53 Patient transported to CVICU. End Study - Contrast Media Used In Study Contrast Total Opened (mL) Total Used (mL) Total Wasted (mL) Omnipaque 57 57 0 End Study - Maximum Contrast Load Max Contrast Load (mL) 137.5 End Study - Radiation Exposure Fluoro Time (minutes) 4.2 End Study - Sheaths Sheaths Pulled By Sheath Hold Time (min) Laura Clifford End Study - Patient Disposition Complications Transferred To Interventional Outcome No Critical Care Bed No attempt made
[2017-09-18] MEDS: ASPIRIN 81 MG CHEW TAB PO SCH (11:47)
[2017-09-18] MEDS: CARVEDILOL 6.25 MG TAB PO SCH ×2 (11:47→21:07)
[2017-09-18] MEDS ORDERED: IOHEXOL 350 MG/ML 100 ML BTL (for Cath Lab) OTHER ONE (12:29)
--- NOTE | 2017-09-18 14:44 | EKG ---
Date Performed: 09/17/2017 Time Performed: 22:25:29 PTAGE: 71 years EKG: ELECTRONIC VENTRICULAR PACEMAKER ABNORMAL RHYTHM ECG PREVIOUS TRACING : 09/17/2017 21.56 DOCTOR: Emanuel Barrera Interpretating Date/Time 09/18/2017 14:43:59
--- NOTE | 2017-09-18 14:46 | EKG ---
Date Performed: 09/17/2017 Time Performed: 22:06:56 PTAGE: 71 years EKG: Sinus rhythm WITH FIRST DEGREE AV BLOCK WITH FREQUENT VENTRICULAR PREMATURE COMPLEXES LEFT VENTRICULAR HYPERTROPH Y AND ST-T CHANGE ABNORMAL ECG INTERPRETATION BASED ON A DEFAULT AGE OF 38 YEARS NO PREVIOUS TRACING DOCTOR: Emanuel Barrera Interpretating Date/Time 09/18/2017 14:44:21
--- NOTE | 2017-09-18 14:46 | EKG ---
Date Performed: 09/17/2017 Time Performed: 21:56:47 PTAGE: 71 years EKG: wide complex tachycardio RIGHT BUNDLE BRANCH BLOCK AND POSSIBLE RIGHT VENTRICULAR HYPERTROP HY ANTEROLATERAL MYOCARDIAL INFARCTION ST ELEVATION, CONSIDER SEPTAL INJURY ACUTE RI PREVIOUS TRACING : 03/15/2016 07.24 DOCTOR: Emanuel Barrera Interpretating Date/Time 09/18/2017 14:45:56
[2017-09-18] MEDS ORDERED: WARFARIN SOD 5 MG TAB PO SCH (16:00)
[2017-09-18] MEDS: AMIODARONE 200 MG TAB PO SCH (21:07)
[2017-09-18] MEDS: ATORVASTATIN 40 MG TAB PO SCH (21:07)
[2017-09-19] VITALS (11 sets, daily range): BP systolic 113–131; BP diastolic 57–71; PULSE 59–68; RESP 18–20; TEMP 97.5–98.5; O2SAT 94–100
[2017-09-19] MEDS: HEPARIN SODIUM - SQ 10,000 UNITS/ML VIAL SQ SCH (01:16)
[2017-09-19] MEDS: INSULIN NovoLIN REGULAR SUPPLEMENTAL SCALE SQ SCH ×5 (03:00→21:24)
[2017-09-19] MEDS: CHLORHEXIDINE GLUCONATE 2 % 1 PACK (2 CLOTHS) TOP SCH (04:00)
[2017-09-19 05:51] LABS: HEMATOCRIT 37.5 % (39.0-51.0); HEMOGLOBIN 12.4 GM/DL (13.0-17.0); MEAN CELL VOLUME 86.9 FL (80.0-100.0); MEAN CORPUSCULAR HEMOGLOBIN 28.7 PG (27.0-34.0); MEAN CORPUSCULAR HGB CONC 33.1 % (32.0-36.0); MEAN PLATELET VOLUME 9.7 FL (7.0-11.0); PLATELET COUNT 133 TH/MM3 (150-450); RED BLOOD COUNT 4.32 MIL/MM3 (4.50-5.90); RED CELL DISTRIBUTION WIDTH 14.7 % (11.6-17.2); WHITE BLOOD COUNT 9.8 TH/MM3 (4.0-11.0)
[2017-09-19 05:59] LABS: INTERNATIONAL NORMALIZED RATIO 1.2 RATIO; PROTHROMBIN TIME - PATIENT 12.3 SEC (9.8-11.6)
[2017-09-19] MEDS: LEVOTHYROXINE SODIUM 25 MCG TAB PO SCH (06:11)
[2017-09-19 06:12] LABS: BICARBONATE 20.4 MEQ/L (21.0-32.0); CREATININE 1.75 MG/DL (0.60-1.30)
--- NOTE | 2017-09-19 07:23 | PD.CARD.PN ---
Subjective Subjective Remarks Denies CP, dyspnea, dizziness, palpitations, nausea. Objective Medications Item Value Date Time Atorvastatin 40 mg 09/18/172099 Calcium HS/PO 09/18/172106 (Lipitor) Amiodarone HCl 400 mg 09/18/17 2100 (Cordarone) Q12HR/PO 09/18/172106 Warfarin Sodium 5 mg 09/18/17 1600 (Coumadin) DAILY@1600/PO 09/18/17 1638 Aspirin 81 mg 09/18/17 0900 (Aspirin Chew) DAILY/PO 09/18/17 114 Lisinopril 10 mg 09/18/17 0900 (Prinivil) DAILY/PO Carvedilol 6.25 mg 09/18/17 0900 (Coreg) BID/PO 09/18/172106 Current Medications Medications (Trade) Dose Ordered Sig/Sakina Route Start Time Stop Time Status Last Admin (NS Flush) 2 ml UNSCH PRN IVF 09/17/17 22:15 (NS Flush) 2 ml UNSCH PRN IVF 09/17/17 22:15 (Tylenol) 650 mg Q6H PRN PO 09/18/17 00:30 09/18/17 01:32 (Duoneb Neb) 1 ampule Q2HR NEB PRN INH 09/18/17 00:30 (Heparin Inj) 5,000 units Q8H SQ 09/18/17 00:30 09/19/17 01:16 Miscellaneous Information 1 Q361D XX 09/18/17 00:30 (Chlorhexidine 2% Cloth) 3 pack Taper DAILY@04 TOP 09/18/17 04:00 09/14/18 03:59 (Chlorhexidine 2% Cloth) 3 pack UNSCH PRN TOP 09/18/17 00:30 (Shayy-Colace) 1 tab BID PO 09/18/17 09:00 09/18/17 21:00 (Milk Of Magnesia Liq) 30 ml Q12H PRN PO 09/18/17 00:30 (Aspirin Chew) 81 mg DAILY PO 09/18/17 09:00 09/18/17 11:47 (Lipitor) 40 mg HS PO 09/18/17 21:00 09/18/17 21:07 (D50w (Vial) Inj) 25 ml UNSCH PRN IV PUSH 09/18/17 00:30 (NovoLIN R SUPPLEMENTAL SCALE) 1 ACHS AND 3AM SQ 09/18/17 03:00 09/18/17 04:00 (Coreg) 6.25 mg BID PO 09/18/17 09:00 09/18/17 21:07 (Atropine Inj) 0.5 mg UNSCH PRN IV 09/18/17 09:30 Sodium Chloride 250 ml @ 0 mls/hr UNSCH X1 PRN IV 09/18/17 09:30 09/19/17 09:29 (Coumadin) 5 mg DAILY@1600 PO 09/18/17 16:00 09/18/17 16:38 (Cordarone) 400 mg Q12HR PO 09/18/17 21:00 09/18/17 21:07 (Synthroid) 25 mcg DAILY@0600 PO 09/19/17 06:00 09/19/17 06:11 Vital Signs / I&O Vital Signs Date Time Temp Pulse Resp B/P (MAP) Pulse Ox O2 Delivery O2 Flow Rate FiO2 09/19/17 06:38 60 09/19/17 06:24 97.9 60 19 126/64 (84) 100 09/19/17 06:14 95 Nasal Cannula 2.00 09/19/17 03:00 94 Nasal Cannula 2.00 09/19/17 03:00 59 09/19/17 03:00 98.5 59 20 114/71 (85) 94 09/18/17 23:00 94 Nasal Cannula 2.00 09/18/17 23:00 98.3 60 22 124/77 (93) 94 09/18/17 23:00 60 09/18/17 19:50 96 Nasal Cannula 2.00 09/18/17 19:00 60 09/18/17 19:00 97 Nasal Cannula 2.00 09/18/17 19:00 98.7 60 22 123/70 (87) 97 09/18/17 15:00 59 09/18/17 15:00 97 Nasal Cannula 2.00 09/18/17 15:00 98.6 60 18 119/71 (87) 97 09/18/17 13:28 60 102/58 09/18/17 11:00 95 Nasal Cannula 2.00 09/18/17 11:00 98.5 59 18 131/78 (95) 95 09/18/17 11:00 59 09/18/17 08:30 97 Nasal Cannula 2.00 I/O 09/18/17 09/18/17 09/18/17 09/19/17 09/19/17 09/19/17 07:00 15:00 23:00 07:00 15:00 23:00 Intake Total 448 ml 42 ml 480 ml 420 ml Output Total 100 ml 500 ml 700 ml Balance 348 ml 42 ml -20 ml -280 ml Intake Oral 240 ml 480 ml 420 ml IV Total 208 ml 42 ml Output Urine Total 100 ml 500 ml 700 ml # Bowel Movements 0 0 0 Physical Exam GENERAL: Well developed, thin. No acute distress. HEENT: Jugular venous pressure is normal. CHEST: Lungs clear to auscultation bilaterally. Unlabored respiratory effort. CARDIAC: Regular rate and rhythm without S3, S4, or murmur. ABDOMEN: Soft, nontender, no hepatosplenomegaly. Bowel sounds present. EXTREMITIES: No clubbing, cyanosis, or edema. Right groin nontender, no hematoma. Laboratory Laboratory Tests Test 09/18/17 13:00 09/18/17 15:13 09/19/17 05:01 Troponin I GREATER THAN 40.00 NG/ML GREATER THAN 40.00 NG/ML White Blood Count 9.8 TH/MM3 Red Blood Count 4.32 MIL/MM3 Hemoglobin 12.4 GM/DL Hematocrit 37.5 % Mean Corpuscular Volume 86.9 FL Mean Corpuscular Hemoglobin 28.7 PG Mean Corpuscular Hemoglobin Concent 33.1 % Red Cell Distribution Width 14.7 % Platelet Count 133 TH/MM3 Mean Platelet Volume 9.7 FL Prothrombin Time 12.3 SEC Prothromb Time International Ratio 1.2 RATIO Blood Urea Nitrogen 17 MG/DL Creatinine 1.75 MG/DL Random Glucose 115 MG/DL Calcium Level 8.0 MG/DL Sodium Level 137 MEQ/L Potassium Level 4.6 MEQ/L Chloride Level 108 MEQ/L Carbon Dioxide Level 20.4 MEQ/L Anion Gap 9 MEQ/L Estimat Glomerular Filtration Rate 38 ML/MIN Assessment and Plan Problem List: (1) Ventricular tachycardia ICD Codes: I47.2 - Ventricular tachycardia Status: Acute Plan: Stable overnight. No further ventricular tachyarrhythmias. Appears patient received ICD shock for VF at home, then external shock in ER for VT that was slower than ICD detection rate. Rec continue Amiodarone loading another 24 more hours. (2) Coronary artery disease ICD Codes: I25.10 - Coronary artery disease Status: Chronic Plan: Stable overnight. No further atypical CP. Cath findings overall without significant change compared to 2011 cath. Rec continue medical therapy. Carvedilol dosing increased, ELIZABETH-I stopped for now with his renal insufficiency. Continue daily aspirin. (3) Ischemic cardiomyopathy ICD Codes: I25.5 - Ischemic cardiomyopathy Status: Chronic Plan: Compensated. No definite CHF. Echo pending. Rec continue beta abe. Hold off on ELIZABETH-I for now with his renal insufficiency. (4) Paroxysmal atrial fibrillation ICD Codes: I48.0 - Paroxysmal atrial fibrillation Status: Chronic Plan: Stable. ICD interrogation shows no recent atrial fib. His thromboembolic risk is high. Will resume Xarelto at reduced dosing 15 mg qd. (5) HTN (hypertension) ICD Codes: I10 - HTN (hypertension) Status: Chronic Plan: Stable. Normotensive. (6) H/O heart bypass surgery ICD Codes: Z95.1 - H/O heart bypass surgery Status: Chronic Code Status full code Discussed Condition With patient Problem Qualifiers (1) Coronary artery disease: Qualified Codes: I25.110 - Atherosclerotic heart disease of [place] coronary artery with unstable angina pectoris (2) HTN (hypertension): Qualified Codes: I10 - Essential (primary) hypertension Ronald Miner MD Sep 19, 2017 07:23
[2017-09-19] MEDS: ASPIRIN 81 MG CHEW TAB PO SCH (08:32)
[2017-09-19] MEDS: CARVEDILOL 6.25 MG TAB PO SCH ×2 (08:32→21:22)
[2017-09-19] MEDS: DOCUSATE SODIUM 50 MG/SENNA 8.6 MG TAB PO SCH ×2 (08:33→21:00)
[2017-09-19] MEDS: AMIODARONE 200 MG TAB PO SCH ×2 (08:33→21:22)
[2017-09-19] MEDS: RIVAROXABAN 15 MG TAB PO SCH (08:33)
--- NOTE | 2017-09-19 16:39 | HHI.PR ---
Subjective Remarks Denies cp/sob. Objective Vitals Vital Signs Date Time Temp Pulse Resp B/P (MAP) Pulse Ox O2 Delivery O2 Flow Rate FiO2 09/19/17 16:08 98.2 60 18 128/60 (82) 97 09/19/17 12:08 97.6 60 18 131/61 (84) 98 09/19/17 08:30 Nasal Cannula 2.00 09/19/17 08:05 97.5 60 18 129/71 (90) 98 09/19/17 06:38 60 09/19/17 06:24 97.9 60 19 126/64 (84) 100 09/19/17 06:14 95 Nasal Cannula 2.00 09/19/17 03:00 94 Nasal Cannula 2.00 09/19/17 03:00 59 09/19/17 03:00 98.5 59 20 114/71 (85) 94 09/18/17 23:00 94 Nasal Cannula 2.00 09/18/17 23:00 98.3 60 22 124/77 (93) 94 09/18/17 23:00 60 09/18/17 19:50 96 Nasal Cannula 2.00 09/18/17 19:00 60 09/18/17 19:00 97 Nasal Cannula 2.00 09/18/17 19:00 98.7 60 22 123/70 (87) 97 I/O 09/18/17 09/18/17 09/18/17 09/19/17 09/19/17 09/19/17 07:00 15:00 23:00 07:00 15:00 23:00 Intake Total 448 ml 42 ml 480 ml 420 ml Output Total 100 ml 500 ml 700 ml Balance 348 ml 42 ml -20 ml -280 ml Intake Oral 240 ml 480 ml 420 ml IV Total 208 ml 42 ml Output Urine Total 100 ml 500 ml 700 ml # Bowel Movements 0 0 0 Result Diagram: 09/19/17 0501 09/19/17 0501 Imaging Last Impressions Chest X-Ray 09/17/172212 Signed Impressions: Service Date/Time: Sunday, September 17, 2017 22:02 - CONCLUSION: No evidence of acute cardiopulmonary disease. Eliazar Up MD Objective Remarks AAOX3 NAD PERRLA EOMI S1S2 RRR, no MRG Clear lungs BL abdomen soft, nt, nd Medications and IVs Current Medications Medications (Trade) Dose Ordered Sig/Sakina Route Start Time Stop Time Status Last Admin (NS Flush) 2 ml UNSCH PRN IVF 09/17/17 22:15 (NS Flush) 2 ml UNSCH PRN IVF 09/17/17 22:15 (Tylenol) 650 mg Q6H PRN PO 09/18/17 00:30 09/18/17 01:32 (Duoneb Neb) 1 ampule Q2HR NEB PRN INH 09/18/17 00:30 Miscellaneous Information 1 Q361D XX 09/18/17 00:30 (Chlorhexidine 2% Cloth) 3 pack Taper DAILY@04 TOP 09/18/17 04:00 09/14/18 03:59 (Chlorhexidine 2% Cloth) 3 pack UNSCH PRN TOP 09/18/17 00:30 (Shayy-Colace) 1 tab BID PO 09/18/17 09:00 09/19/17 08:33 (Milk Of Magnesia Liq) 30 ml Q12H PRN PO 09/18/17 00:30 (Aspirin Chew) 81 mg DAILY PO 09/18/17 09:00 09/19/17 08:32 (Lipitor) 40 mg HS PO 09/18/17 21:00 09/18/17 21:07 (D50w (Vial) Inj) 25 ml UNSCH PRN IV PUSH 09/18/17 00:30 (NovoLIN R SUPPLEMENTAL SCALE) 1 ACHS AND 3AM SQ 09/18/17 03:00 09/19/17 13:58 (Coreg) 6.25 mg BID PO 09/18/17 09:00 09/19/17 08:32 (Atropine Inj) 0.5 mg UNSCH PRN IV 09/18/17 09:30 (Cordarone) 400 mg Q12HR PO 09/18/17 21:00 09/19/17 08:33 (Synthroid) 25 mcg DAILY@0600 PO 09/19/17 06:00 09/19/17 06:11 (Xarelto) 15 mg DAILY PO 09/19/17 09:00 09/19/17 08:33 A/P Problem List: (1) Ventricular tachycardia ICD Code: I47.2 - Ventricular tachycardia Status: Acute Plan: The patient was initially admitted to intensive care unit and then transferred to the medical floor. The patient presented with hemodynamically unstable ventricular tachycardia. As per squad boss documentation the rate was too low for AICD to fire. The patient was started on amiodarone drip, cardiology consulted. Continue to monitor on telemetry. Cardiology recommends loading with amiodarone x 24 hours more. (2) Ischemic cardiomyopathy ICD Code: I25.5 - Ischemic cardiomyopathy Status: Chronic Plan: No CHF. Compensated. Continue beta abe. Hold off on ELIZABETH inhibitor due to renal insufficiency. (3) Coronary artery disease ICD Code: I25.10 - Coronary artery disease Status: Chronic (4) Paroxysmal atrial fibrillation ICD Code: I48.0 - Paroxysmal atrial fibrillation Status: Chronic Plan: Patient stable. ICD interrogation shows no recent atrial fibrillation. Continue Xarelto which was resumed by cardiology at 50 mg daily. (5) HTN (hypertension) ICD Code: I10 - HTN (hypertension) Status: Chronic Plan: Seems to be stable. Continue current hypertensive medications. (6) DM (diabetes mellitus) ICD Code: E11.9 - DM (diabetes mellitus) Status: Chronic Plan: Will resume Januvia and Pioglitazone. Continue to monitor Accu-Cheks. Continue sliding scale Blood sugar seems to be elevated in the 200s. Assessment and Plan DVT prophylaxis: On Xarelto. Discharge Planning Possible discharge in a.m. Pending cardiology clearance. Problem Qualifiers (1) Coronary artery disease: Qualified Codes: I25.110 - Atherosclerotic heart disease of [place] coronary artery with unstable angina pectoris (2) HTN (hypertension): Qualified Codes: I10 - Essential (primary) hypertension (3) DM (diabetes mellitus): Qualified Codes: E11.9 - Type 2 diabetes mellitus without complications Best Rodriguez MD Sep 19, 2017 16:39
[2017-09-19] MEDS: PIOGLITAZONE HCL 15 MG TAB PO SCH (19:20)
[2017-09-19] MEDS: ATORVASTATIN 40 MG TAB PO SCH (21:23)
[2017-09-20] VITALS: BP 107/61; PULSE 60; RESP 19; TEMP 98.2; O2SAT 95
[2017-09-20] MEDS: INSULIN NovoLIN REGULAR SUPPLEMENTAL SCALE SQ SCH ×3 (03:00→12:00)
[2017-09-20] MEDS: CHLORHEXIDINE GLUCONATE 2 % 1 PACK (2 CLOTHS) TOP SCH (03:34)
[2017-09-20 04:00] VITALS: BP 130/62; PULSE 61; PULSE 80; RESP 21; TEMP 98; O2SAT 96
[2017-09-20] MEDS: LEVOTHYROXINE SODIUM 25 MCG TAB PO SCH (05:02)
[2017-09-20 05:59] LABS: HEMATOCRIT 36.5 % (39.0-51.0); HEMOGLOBIN 12.2 GM/DL (13.0-17.0); MEAN CELL VOLUME 86.5 FL (80.0-100.0); MEAN CORPUSCULAR HEMOGLOBIN 28.8 PG (27.0-34.0); MEAN CORPUSCULAR HGB CONC 33.3 % (32.0-36.0); MEAN PLATELET VOLUME 9.5 FL (7.0-11.0); PLATELET COUNT 131 TH/MM3 (150-450); RED BLOOD COUNT 4.22 MIL/MM3 (4.50-5.90); WHITE BLOOD COUNT 8.8 TH/MM3 (4.0-11.0)
[2017-09-20 06:38] LABS: CALCIUM 8.2 MG/DL (8.5-10.1); CREATININE 1.76 MG/DL (0.60-1.30)
[2017-09-20 07:41] VITALS: PULSE 60
[2017-09-20 08:26] VITALS: BP 131/60; PULSE 62; RESP 24; TEMP 97.9; O2SAT 96
[2017-09-20] MEDS: AMIODARONE 200 MG TAB PO SCH (08:35)
[2017-09-20] MEDS: CARVEDILOL 6.25 MG TAB PO SCH (08:35)
[2017-09-20] MEDS: ASPIRIN 81 MG CHEW TAB PO SCH (08:35)
[2017-09-20] MEDS: PIOGLITAZONE HCL 15 MG TAB PO SCH (08:35)
[2017-09-20] MEDS: RIVAROXABAN 15 MG TAB PO SCH (08:36)
[2017-09-20] MEDS: DOCUSATE SODIUM 50 MG/SENNA 8.6 MG TAB PO SCH (08:36)
--- NOTE | 2017-09-20 08:45 | PD.CARD.PN ---
Subjective Subjective Remarks Denies CP, dyspnea, dizziness, palpitations. Objective Medications Item Value Date Time Rivaroxaban 15 mg 09/19/17 09 (Xarelto) DAILY/PO 09/20/17835 Atorvastatin 40 mg 09/18/172099 Calcium HS/PO 09/19/172122 (Lipitor) Amiodarone HCl 400 mg 09/18/172099 (Cordarone) Q12HR/PO 09/20/17834 Aspirin 81 mg 09/18/17899 (Aspirin Chew) DAILY/PO 09/20/17834 Carvedilol 6.25 mg 09/18/17899 (Coreg) BID/PO 09/20/17834 Current Medications Medications (Trade) Dose Ordered Sig/Sakina Route Start Time Stop Time Status Last Admin (NS Flush) 2 ml UNSCH PRN IVF 09/17/17 22:15 (NS Flush) 2 ml UNSCH PRN IVF 09/17/17 22:15 (Tylenol) 650 mg Q6H PRN PO 09/18/17 00:30 09/18/17 01:32 (Duoneb Neb) 1 ampule Q2HR NEB PRN INH 09/18/17 00:30 Miscellaneous Information 1 Q361D XX 09/18/17 00:30 (Chlorhexidine 2% Cloth) 3 pack Taper DAILY@04 TOP 09/18/17 04:00 09/14/18 03:59 (Chlorhexidine 2% Cloth) 3 pack UNSCH PRN TOP 09/18/17 00:30 (Shayy-Colace) 1 tab BID PO 09/18/17 09:00 09/19/17 08:33 (Milk Of Magnesia Liq) 30 ml Q12H PRN PO 09/18/17 00:30 (Aspirin Chew) 81 mg DAILY PO 09/18/17 09:00 09/20/17 08:35 (Lipitor) 40 mg HS PO 09/18/17 21:00 09/19/17 21:23 (D50w (Vial) Inj) 25 ml UNSCH PRN IV PUSH 09/18/17 00:30 (NovoLIN R SUPPLEMENTAL SCALE) 1 ACHS AND 3AM SQ 09/18/17 03:00 09/19/17 21:24 (Coreg) 6.25 mg BID PO 09/18/17 09:00 09/20/17 08:35 (Atropine Inj) 0.5 mg UNSCH PRN IV 09/18/17 09:30 (Cordarone) 400 mg Q12HR PO 09/18/17 21:00 09/20/17 08:35 (Synthroid) 25 mcg DAILY@0600 PO 09/19/17 06:00 09/20/17 05:02 (Xarelto) 15 mg DAILY PO 09/19/17 09:00 09/20/17 08:36 (Actos) 15 mg DAILY PO 09/19/17 17:00 09/20/17 08:35 (Januvia) 50 mg DAILY PO 09/19/17 17:00 09/20/17 08:35 Vital Signs / I&O Vital Signs Date Time Temp Pulse Resp B/P (MAP) Pulse Ox O2 Delivery O2 Flow Rate FiO2 09/20/17 08:26 97.9 62 24 131/60 (83) 96 09/20/17 04:00 80 09/20/17 04:00 98.0 61 21 130/62 (84) 96 09/20/17 00:00 60 09/20/17 00:00 98.2 60 19 107/61 (76) 95 09/19/17 20:00 68 09/19/17 20:00 97.9 60 19 113/57 (75) 95 09/19/17 20:00 96 Room Air 09/19/17 16:08 98.2 60 18 128/60 (82) 97 09/19/17 16:00 63 09/19/17 12:08 97.6 60 18 131/61 (84) 98 09/19/17 12:00 60 I/O 09/19/17 09/19/17 09/19/17 09/20/17 09/20/17 09/20/17 07:00 15:00 23:00 07:00 15:00 23:00 Intake Total 420 ml 720 ml 480 ml Output Total 700 ml 500 ml 850 ml Balance -280 ml 220 ml -370 ml Intake Oral 420 ml 720 ml 480 ml Output Urine Total 700 ml 500 ml 850 ml # Bowel Movements 0 0 0 Physical Exam GENERAL: Well developed, thin. No acute distress. HEENT: Jugular venous pressure is normal. CHEST: Lungs clear to auscultation anteriorly. CARDIAC: Regular rate and rhythm without S3, S4, or murmur. ABDOMEN: Soft, nontender, no hepatosplenomegaly. Bowel sounds present. EXTREMITIES: No clubbing, cyanosis, or edema. Laboratory Laboratory Tests Test 09/20/17 05:28 White Blood Count 8.8 TH/MM3 Red Blood Count 4.22 MIL/MM3 Hemoglobin 12.2 GM/DL Hematocrit 36.5 % Mean Corpuscular Volume 86.5 FL Mean Corpuscular Hemoglobin 28.8 PG Mean Corpuscular Hemoglobin Concent 33.3 % Red Cell Distribution Width 15.0 % Platelet Count 131 TH/MM3 Mean Platelet Volume 9.5 FL Blood Urea Nitrogen 20 MG/DL Creatinine 1.76 MG/DL Random Glucose 108 MG/DL Calcium Level 8.2 MG/DL Sodium Level 138 MEQ/L Potassium Level 4.4 MEQ/L Chloride Level 107 MEQ/L Carbon Dioxide Level 23.0 MEQ/L Anion Gap 8 MEQ/L Estimat Glomerular Filtration Rate 38 ML/MIN Assessment and Plan Problem List: (1) Ventricular tachycardia ICD Codes: I47.2 - Ventricular tachycardia Status: Acute Plan: Stable overnight. No further ventricular tachyarrhythmias except brief episode nonsustained VT this morning. Appears patient received ICD shock for VF at home, then external shock in ER for VT that was slower than ICD detection rate. Rec drop Amiodarone to 400 mg qd, OK to discharge home today from cardiac standpoint. (2) Coronary artery disease ICD Codes: I25.10 - Coronary artery disease Status: Chronic Plan: Stable overnight. No further atypical CP. Cath findings overall without significant change compared to 2011 cath. Rec continue medical therapy. Rec increase carvedilol further to 12.5 mg bid, ELIZABETH-I stopped for now with his renal insufficiency. Continue daily aspirin. (3) Ischemic cardiomyopathy ICD Codes: I25.5 - Ischemic cardiomyopathy Status: Chronic Plan: Compensated. No definite CHF. Echo pending, can do as outpatient. Rec continue beta abe. Hold off on ELIZABETH-I for now with his renal insufficiency. (4) Paroxysmal atrial fibrillation ICD Codes: I48.0 - Paroxysmal atrial fibrillation Status: Chronic Plan: Stable. ICD interrogation shows no recent atrial fib. His thromboembolic risk is high. Continue Xarelto at reduced dosing 15 mg qd. (5) HTN (hypertension) ICD Codes: I10 - HTN (hypertension) Status: Chronic Plan: Stable. Normotensive. (6) H/O heart bypass surgery ICD Codes: Z95.1 - H/O heart bypass surgery Status: Chronic Code Status full code Discussed Condition With patient Problem Qualifiers (1) Coronary artery disease: Qualified Codes: I25.110 - Atherosclerotic heart disease of [place] coronary artery with unstable angina pectoris (2) HTN (hypertension): Qualified Codes: I10 - Essential (primary) hypertension Ronald Miner MD Sep 20, 2017 08:45
[2017-09-20] MEDS ORDERED: CARVEDILOL 12.5 MG TAB PO SCH ×2 (09:00→21:00)
[2017-09-20] MEDS ORDERED: AMIO200T PO (11:41)
[2017-09-20] MEDS ORDERED: ATOR40TA16 PO (11:41)
--- NOTE | 2017-09-20 11:45 | HHI.DCPOC ---
Discharge Care Plan Diagnosis: (1) Cardiac pacemaker in situ (2) Coronary artery disease (3) DM (diabetes mellitus) (4) HTN (hypertension) (5) Acute on chronic renal insufficiency (6) Ischemic cardiomyopathy (7) Paroxysmal atrial fibrillation (8) Ventricular tachycardia (9) Hyperlipidemia Goals to Promote Your Health * To prevent worsening of your condition and complications * To maintain your health at the optimal level Directions to Meet Your Goals Take your medications as prescribed Follow your dietary instruction Follow activity as directed Keep your appointments as scheduled Take your immunizations and boosters as scheduled If your symptoms worsen call your PCP, if no PCP go to Urgent Care Center or Emergency Room Smoking is Dangerous to Your Health. Avoid second hand smoke Call the 24-hour hour crisis hotline for domestic abuse at Best Rodriguez MD Sep 20, 2017 11:45
[2017-09-20 11:50] VITALS: PULSE 60
--- NOTE | 2017-09-20 12:06 | HHI.DS ---
Discharge Summary Admission Date Sep 18, 2017 at 00:33 Discharge Date: Sep 20, 2017 Admitting Diagnosis V. tach (1) Ventricular tachycardia ICD Code: I47.2 - Ventricular tachycardia Diagnosis: Principal Status: Resolved (2) Ischemic cardiomyopathy ICD Code: I25.5 - Ischemic cardiomyopathy Diagnosis: Principal Status: Chronic (3) Coronary artery disease ICD Code: I25.10 - Coronary artery disease Diagnosis: Principal Status: Chronic (4) Paroxysmal atrial fibrillation ICD Code: I48.0 - Paroxysmal atrial fibrillation Diagnosis: Principal Status: Chronic (5) HTN (hypertension) ICD Code: I10 - HTN (hypertension) Diagnosis: Principal Status: Chronic (6) DM (diabetes mellitus) ICD Code: E11.9 - DM (diabetes mellitus) Diagnosis: Principal Status: Chronic (7) ADRIANA (acute kidney injury) ICD Code: N17.9 - Acute kidney failure, unspecified Diagnosis: Principal Status: Resolved (8) CKD (chronic kidney disease), stage III ICD Code: N18.3 - Chronic kidney disease, stage 3 (moderate) Diagnosis: Principal Status: Chronic Procedures cardiac catheterization. Brief History - From Admission The patient has a significant language barrier, and cannot answer a full detailed history. The patient's has left for the night and so additional information is not obtainable from her, as was previously documented by the ER physician. The history is obtained by the medical record. This is a 71yM with history of CAD, HTN, HLD and s/p AICD placement, with EF ~20%. He is a patient of Dr. De La Cruz. He presented to the ED with complaints of sudden onset of altered mental status and "slumping over" at dinner. On arrival to the emergency department, he was found to be in a wide-complex tachycardia at a rate of ~160. He was hypotensive with this and was electrically cardioverted back into a narrow complex rhythm. Cardiology was called and did not feel this was a STEMI or needed emergent heart catheterization. The patient does appear to complain of chest pain post-cardioversion, but difficult to tell whether this is secondary to cardioversion or not. According to reports, he had not complained of chest pain prior to cardioversion. CBC/BMP: 09/20/17 0528 09/20/17 0528 Significant Findings Laboratory Tests Test 09/17/17 22:10 09/18/17 04:00 09/18/17 13:00 09/18/17 15:13 White Blood Count 11.8 TH/MM3 (4.0-11.0) Monocytes (%) (Auto) 10.2 % (0.0-8.0) Eosinophils (%) (Auto) 5.0 % (0.0-4.0) Monocytes # (Auto) 1.2 TH/MM3 (0-0.9) Eosinophils # (Auto) 0.6 TH/MM3 (0-0.4) Bedside Sodium 137 MMOL/L (138-146) Creatinine 2.24 MG/DL (0.60-1.30) Random Glucose 282 MG/DL (74-106) Sodium Level 135 MEQ/L (136-145) Bedside Creatinine 2.0 MG/DL (0.8-1.3) Estimat Glomerular Filtration Rate 29 ML/MIN (>89) Bedside Glucose 275 MG/DL (60-95) Calcium Level 8.4 MG/DL (8.5-10.1) Troponin I 0.44 NG/ML (0.02-0.05) 27.10 NG/ML (0.02-0.05) GREATER THAN 40.00 NG/ML GREATER THAN 40.00 NG/ML B-Type Natriuretic Peptide 381 PG/ML (0-100) Test 09/19/17 05:01 09/20/17 05:28 Red Blood Count 4.32 MIL/MM3 (4.50-5.90) 4.22 MIL/MM3 (4.50-5.90) Hemoglobin 12.4 GM/DL (13.0-17.0) 12.2 GM/DL (13.0-17.0) Hematocrit 37.5 % (39.0-51.0) 36.5 % (39.0-51.0) Platelet Count 133 TH/MM3 (150-450) 131 TH/MM3 (150-450) Prothrombin Time 12.3 SEC (9.8-11.6) Creatinine 1.75 MG/DL (0.60-1.30) 1.76 MG/DL (0.60-1.30) Random Glucose 115 MG/DL (74-106) 108 MG/DL (74-106) Calcium Level 8.0 MG/DL (8.5-10.1) 8.2 MG/DL (8.5-10.1) Chloride Level 108 MEQ/L (98-107) Carbon Dioxide Level 20.4 MEQ/L (21.0-32.0) Estimat Glomerular Filtration Rate 38 ML/MIN (>89) 38 ML/MIN (>89) Blood Urea Nitrogen 20 MG/DL (7-18) Imaging Last Impressions Chest X-Ray 09/17/172212 Signed Impressions: Service Date/Time: Sunday, September 17, 2017 22:02 - CONCLUSION: No evidence of acute cardiopulmonary disease. Eliazar Up MD PE at Discharge AAOX3 NAD PERRLA EOMI S1S2 RRR, no MRG Clear lungs BL abdomen soft, nt, nd Pt update on day of discharge Denies cp/sob. Patient has been cleared by cardiology to be discharged. Echo pending can be done as an outpatient. Hospital Course (1) Ventricular tachycardia The patient was initially admitted to intensive care unit and then transferred to the medical floor. The patient presented with hemodynamically unstable ventricular tachycardia. As per rooms director documentation the rate was too low for AICD to fire. The patient was started on amiodarone drip, cardiology consulted. The patient underwent a cardiac catheterization with findings of severe two-vessel coronary artery disease, right dominant system. Patent left internal mammary artery to the LAD, known chronically totally excluded pain grafts to the diagonal, right coronary, obtuse marginal. Cardiology recommended continuation of medical therapy. The patient was monitored on telemetry throughout hospital stay. Echocardiogram pending prior to discharge, however cardiology okay with discharging patient and patient doing it as an outpatient. Provided a prescription for 2-D echocardiogram for patient to do as an outpatient or in the poundmaster's office. (2) Ischemic cardiomyopathy No CHF. Compensated. Continue beta abe. Held off on ELIZABETH inhibitor due to renal insufficiency. (3) Coronary artery disease Cardiology consulted. Recommended medical management with Xarelto, beta abe , Lipitor, aspirin. (4) Paroxysmal atrial fibrillation ICD interrogation shows no recent atrial fibrillation. EKG showed ventricular paced rhythm. Xarelto 15 mg po daily resumed by cardiology. (5) HTN (hypertension) Remained stable during hospitalization. Antihypertensive medications were continued. Vital signs monitored. (6) DM (diabetes mellitus) Will resume Januvia and Pioglitazone. Continue to monitor Accu-Cheks. Continue sliding scale Blood sugar seems to be elevated in the 200s. (7) ADRIANA on CKD stage III Creatinine admission was 2.24, which trended down to 1.75. Upon review of previous records patient's baseline ranges from 1.5-1.8. Creatinine currently at baseline. BUN/creatinine was monitored throughout hospitalization. Avoid nephrotoxic agents. Assessment and Plan DVT prophylaxis: On Xarelto. Pt Condition on Discharge: Stable Discharge Disposition: Discharge Home Discharge Time: > 30 minutes Discharge Instructions DIET: Follow Instructions for: Heart Healthy Diet Activities you can perform: Regular-No Restrictions Activities to Avoid: Strenuous Activity Follow up Referrals: Cardiology - 2 Weeks with Ronald Miner MD PCP Follow-up - 2 Weeks New Medications: Amiodarone (Amiodarone) 200 Mg Tab 400 MG PO DAILY for ventricular fibrillation, #31 TAB Atorvastatin (Atorvastatin) 40 Mg Tab 40 MG PO HS for Cholesterol Management, #31 TAB Continued Medications: Amlodipine Besylate (Norvasc) 10 Mg Tab 10 MG PO DAILY Aspirin (Aspirin) 81 Mg Tab 81 MG PO DAILY, 0 Refills Benazepril Hcl (Lotensin) 10 Mg Tab 10 MG PO DAILY, 0 Refills Carvedilol 3.125 mg (Carvedilol 3.125 mg) 3.125 Mg Tab 1 TAB PO BID, TAB Docusate Sodium (Colace 100 Mg Cap) 100 Mg Cap 100 MG PO BID, #60 CAP Don't take if you have diarrhea. Isosorbide Mononitrate (Isosorbide Mononitrate) 20 Mg Tab 30 MG PO DAILY Pioglitazone Hcl (Actos 15 mg) 15 Mg Tab 1 TAB PO DAILY, TAB Sitagliptin Phosphate (Januvia) 50 Mg Tab 50 MG PO DAILY, TAB Synthroid 75 mcg (Synthroid 75 mcg) 75 Mcg Tab 25 MCG PO DAILY, TAB Discontinued Medications: Atorvastatin 40 mg (Atorvastatin 40 mg) 40 Mg Tab 40 MG PO HS, TAB Simvastatin (Zocor 40 mg) 40 Mg Tab 40 MG PO HS, 0 Refills Best Rodriguez MD Sep 20, 2017 12:06
[2017-09-21] MEDS ORDERED: AMIODARONE 200 MG TAB PO SCH (09:00)
== END 2017-09-20 13:14 | disposition home or self-care (01) | DRG 281 ==
LOC: NEPE 21:46 → NEDA 09-18 00:33 → HCVI 09-18 01:10 → N04A 09-19 05:54
PROVIDERS: ADMIT Hospitalist; ATTEND Hospitalist
PROC: 5A2204Z Restoration of Cardiac Rhythm, Single (ICD-10-PCS; principal; 2017-09-17)
PROC: 4A023N7 Measurement of Cardiac Sampling and Pressure, Left Heart, Percutaneous Approach (ICD-10-PCS; 2017-09-18)
PROC: B2111ZZ Fluoroscopy of Multiple Coronary Arteries using Low Osmolar Contrast (ICD-10-PCS; 2017-09-18)
PROC: B2131ZZ Fluoroscopy of Multiple Coronary Artery Bypass Grafts using Low Osmolar Contrast (ICD-10-PCS; 2017-09-18)
PROC: B2181ZZ Fluoroscopy of Left Internal Mammary Bypass Graft using Low Osmolar Contrast (ICD-10-PCS; 2017-09-18)
DX: I47.2 Ventricular tachycardia (principal); I21.9 Acute myocardial infarction, unspecified; N17.9 Acute kidney failure, unspecified; I95.9 Hypotension, unspecified; I42.9 Cardiomyopathy, unspecified; I11.0 Hypertensive heart disease with heart failure; I13.0 Hypertensive heart and chronic kidney disease with heart failure and stage 1 through stage 4 chronic kidney disease, or unspecified chronic kidney disease; I50.9 Heart failure, unspecified; I25.110 Atherosclerotic heart disease of native coronary artery with unstable angina pectoris; I25.710 Atherosclerosis of autologous vein coronary artery bypass graft(s) with unstable angina pectoris; E11.22 Type 2 diabetes mellitus with diabetic chronic kidney disease; N18.3 Chronic kidney disease, stage 3 (moderate); E78.5 Hyperlipidemia, unspecified; E03.9 Hypothyroidism, unspecified; R07.9 Chest pain, unspecified; I25.5 Ischemic cardiomyopathy; R09.02 Hypoxemia; I48.0 Paroxysmal atrial fibrillation; I25.2 Old myocardial infarction; Z79.82 Long term (current) use of aspirin; Z95.1 Presence of aortocoronary bypass graft; Z95.810 Presence of automatic (implantable) cardiac defibrillator; Z79.84 Long term (current) use of oral hypoglycemic drugs; Z87.891 Personal history of nicotine dependence
CPT/HCPCS: 71010; 80048; 80053; 82310; 82435; 82550; 82565; 82947; 82948; 83735; 83880; 84132; 84295; 84484; 84520; 85025; 85027; 85610; 85730; 93005; 93454; 94150; 94640; 94667; 94668; 96361; 96365; 99152; C1760; C1769; C1893; G0269; J0282; J1644; J2250; J7030; J7050; J7060; Q9967

== ENCOUNTER 2017-11-18 17:25 | Inpatient (IN) | payer OTHER, MEDICARE ==
[~2017-11-18] VITALS: Ht 167.6 cm; Wt 61.5 kg
[~2017-11-18 17:25] MED LIST changes: +AMIO200T PO; -ATOR40TA PO; +ATOR40TA16 PO; -ZOCO40TA PO
[2017-11-18 17:27] VITALS: BP 133/65; PULSE 64; RESP 18; TEMP 98.2; O2SAT 100
--- NOTE | 2017-11-18 17:59 | PD ---
HPI Chief Complaint: Chest Pain Time Seen by Provider: 17:46 Travel History International Travel<30 days: No Contact w/Intl Traveler<30days: No Traveled to known affect area: No History of Present Illness HPI 72-year-old male with PMH of CKD, CAD, [place], s/p pacemaker insertion presents to the ED for evaluation of 10/10 central chest pain. Onset suddenly at rest. Described as "a weight." The patient endorses accompanying shortness of breath and palpitations. He denies diaphoresis, nausea, vomiting. The patient states that prior to the onset of these symptoms he was feeling well. He denies fever , chills, cough, abdominal pain, nausea, vomiting. Patient is followed by Dr. Miner. [facility] Past Medical History Hx Anticoagulant Therapy: Yes Arthritis: No Asthma: No Autoimmune Disease: No Anxiety: No Depression: No Heart Rhythm Problems: Yes Cancer: No Cardiac Catheterization: Yes Cardiovascular Problems: Yes High Cholesterol: Yes Chemotherapy: No Chest Pain: Yes Congestive Heart Failure: No COPD: No Cerebrovascular Accident: No Diabetes: Yes Diminished Hearing: No Endocrine: No Gastrointestinal Disorders: Yes GERD: No Genitourinary: No Hiatal Hernia: No Hypertension: Yes Immune Disorder: No Implanted Vascular Access Dvce: Yes Kidney Stones: No Musculoskeletal: No Neurologic: No Psychiatric: No Reproductive: No Respiratory: No Migraines: No Radiation Therapy: No Renal Failure: No Seizures: No Sickle Cell Disease: No Sleep Apnea: No Thyroid Disease: No Ulcer: No Past Surgical History Abdominal Surgery: No AICD: No Arteriovenous Shunt: No Cardiac Surgery: Yes (BYPASS , pacemaker placement) Coronary Artery Bypass Graft: Yes Ear Surgery: No Endocrine Surgery: No Eye Surgery: No Genitourinary Surgery: No Gynecologic Surgery: Yes Insulin Pump: No Joint Replacement: No Oral Surgery: No Pacemaker: Yes Thoracic Surgery: No Other Surgery: Yes Social History Alcohol Use: No Tobacco Use: No Substance Use: No Allergies-Medications (Allergen,Severity, Reaction): Coded Allergies: No Known Allergies (Verified , 03/15/16) Reported Meds & Prescriptions Reported Meds & Active Scripts Active Atorvastatin (Atorvastatin Calcium) 40 Mg Tab 40 Mg PO HS Amiodarone (Amiodarone HCl) 200 Mg Tab 400 Mg PO DAILY Review of Systems Except as stated in HPI: all other systems reviewed are Neg Physical Exam Narrative GENERAL: Well-nourished, well-developed [place] male in no acute distress. SKIN: Focused skin assessment warm/dry. HEAD: Normocephalic. EYES: No scleral icterus. No injection or drainage. NECK: Supple, trachea midline. No JVD or lymphadenopathy. CARDIOVASCULAR: Regular rate and rhythm without murmurs, gallops, or rubs. RESPIRATORY: Breath sounds clear and equal bilaterally. No accessory muscle use. CHEST: Nontender throughout without deformity or crepitus. No retractions. GASTROINTESTINAL: Abdomen soft, non-tender, nondistended. Active bowel sounds. MUSCULOSKELETAL: No cyanosis, or edema. BACK: Nontender without obvious deformity. No CVA tenderness. Data Data Last Documented VS Vital Signs Date Time Temp Pulse Resp B/P (MAP) Pulse Ox O2 Delivery O2 Flow Rate FiO2 11/18/17 18:09 70 150/70 (96) 11/18/17 17:27 98.2 18 100 Orders Orders Electrocardiogram (11/18/17 17:30) Basic Metabolic Panel (Bmp) (11/18/17 17:30) B-Type Natriuretic Peptide (11/18/17 17:30) Ckmb (Isoenzyme) Profile (11/18/17 17:30) Complete Blood Count With Diff (11/18/17 17:30) Magnesium (Mg) (11/18/17 17:30) Prothrombin Time / Inr (Pt) (11/18/17 17:30) Act Partial Throm Time (Ptt) (11/18/17 17:30) Troponin I (11/18/17 17:30) Lipase (11/18/17 17:30) Chest, Pa & Lat (11/18/17 17:30) Ecg Monitoring (11/18/17 17:52) Bilateral Bp Monitoring (11/18/17 17:52) Iv Access Insert/Monitor (11/18/17 17:52) Nitroglycerin 2% Oint (Nitroglycerin 2% (11/18/17 18:15) Morphine Inj (Morphine Inj) (11/18/17 19:00) Sodium Chlorid 0.9% 500 Ml Inj (Ns 500 M (11/18/17 19:00) Consult Cardiology (11/18/17 ) Admit Order (Ed Use Only) (11/18/17 19:23) Labs Laboratory Tests Test 11/18/17 17:55 White Blood Count 8.9 TH/MM3 Red Blood Count 3.16 MIL/MM3 Hemoglobin 9.5 GM/DL Hematocrit 28.1 % Mean Corpuscular Volume 89.0 FL Mean Corpuscular Hemoglobin 30.2 PG Mean Corpuscular Hemoglobin Concent 33.9 % Red Cell Distribution Width 16.5 % Platelet Count 174 TH/MM3 Mean Platelet Volume 8.9 FL Neutrophils (%) (Auto) 59.4 % Lymphocytes (%) (Auto) 26.5 % Monocytes (%) (Auto) 9.0 % Eosinophils (%) (Auto) 4.7 % Basophils (%) (Auto) 0.4 % Neutrophils # (Auto) 5.3 TH/MM3 Lymphocytes # (Auto) 2.3 TH/MM3 Monocytes # (Auto) 0.8 TH/MM3 Eosinophils # (Auto) 0.4 TH/MM3 Basophils # (Auto) 0.0 TH/MM3 CBC Comment DIFF FINAL Differential Comment Prothrombin Time 19.0 SEC Prothromb Time International Ratio 1.9 RATIO Activated Partial Thromboplast Time 40.3 SEC Blood Urea Nitrogen 20 MG/DL Creatinine 2.13 MG/DL Random Glucose 147 MG/DL Calcium Level 7.9 MG/DL Magnesium Level 2.1 MG/DL Sodium Level 137 MEQ/L Potassium Level 4.8 MEQ/L Chloride Level 109 MEQ/L Carbon Dioxide Level 23.3 MEQ/L Anion Gap 5 MEQ/L Estimat Glomerular Filtration Rate 31 ML/MIN Total Creatine Kinase 86 U/L Troponin I 0.33 NG/ML B-Type Natriuretic Peptide 447 PG/ML Lipase 690 U/L MDM Medical Decision Making Medical Screen Exam Complete: Yes Emergency Medical Condition: Yes Differential Diagnosis Chest pain versus unstable angina versus ACS versus other Narrative Course 72-year-old male with PMH of CKD, CAD, [place], s/p pacemaker insertion presents to the ED for evaluation of 10/10 central chest pain. Onset suddenly at rest with accompanying SOB and palpitations. The patient states that prior to the onset of these symptoms he was feeling well. Patient is followed by Dr. Miner. Patient afebrile, heart rate 64, BP 133/65 on presentation. Physical exam reveals an [place] male in no acute distress. No appreciable N/R/G. No TTP of the precordium. Abdominal exam benign. No lower extremity edema. EKG rate 63, sinus rhythm with first-degree AV block. WA interval 325, QRS 115 , QTc 470 ms. Normal axis. Inverted T waves in lateral leads, new from last EKG. Reviewed by Dr. Salcido. CXR: Cardiomegaly with probably mild interstitial edema pattern and trace pleural fluid characteristic of mild congestive heart failure. No pneumothorax per radiology read. Troponin: 0.33. BNP 447. 2/ 17:55 Calcium Level 7.9 L, Magnesium Level 2.1 Lipase 690. I'm unsure of the cause of his elevated troponin, could be related to kidney failure. In any case will admit him to the medicine service with cardiology consult. Patient's agreeable to the plan. I spoke with Dr. Enriquez who agrees to accept him to the medicine service. Please see medicine notes for disposition. Bridgette Lamb Nov 18, 2017 17:59
[2017-11-18 18:09] VITALS: BP 150/70; PULSE 70
[2017-11-18] MEDS ORDERED: NITROGLYCERIN 2% OINT 1 GM PACKET TOP ONE (18:15)
[2017-11-18 18:27] LABS: AUTOMATED NEUTROPHIL # 5.3 TH/MM3 (1.8-7.7); BASOPHIL % 0.4 % (0.0-2.0); EOSINOPHIL # 0.4 TH/MM3 (0-0.4); EOSINOPHIL % 4.7 % (0.0-4.0); HEMATOCRIT 28.1 % (39.0-51.0); HEMOGLOBIN 9.5 GM/DL (13.0-17.0); LYMPH % 26.5 % (9.0-44.0); LYMPHOCYTE # 2.3 TH/MM3 (1.0-4.8); MEAN CORPUSCULAR HEMOGLOBIN 30.2 PG (27.0-34.0); MEAN CORPUSCULAR HGB CONC 33.9 % (32.0-36.0); MEAN PLATELET VOLUME 8.9 FL (7.0-11.0); MONOCYTE # 0.8 TH/MM3 (0-0.9); NEUT % 59.4 % (16.0-70.0); PLATELET COUNT 174 TH/MM3 (150-450); RED BLOOD COUNT 3.16 MIL/MM3 (4.50-5.90); RED CELL DISTRIBUTION WIDTH 16.5 % (11.6-17.2); WHITE BLOOD COUNT 8.9 TH/MM3 (4.0-11.0)
[2017-11-18 18:41] LABS: BICARBONATE 23.3 MEQ/L (21.0-32.0); CALCIUM 7.9 MG/DL (8.5-10.1); CREATININE 2.13 MG/DL (0.60-1.30); MAGNESIUM 2.1 MG/DL (1.5-2.5)
[2017-11-18 18:45] LABS: TROPONIN I 0.33 NG/ML (0.02-0.05)
[2017-11-18 18:48] LABS: INTERNATIONAL NORMALIZED RATIO 1.9 RATIO
--- NOTE | 2017-11-18 18:54 | RADRPT ---
EXAM DATE/TIME: 11/18/2017 18:02 [facility] COMPARISON: CHEST SINGLE AP, September 17, 2017, 22:02. INDICATIONS : Chest pain and shortness of breath. MEDICAL HISTORY : None. SURGICAL HISTORY : None. ENCOUNTER: Initial ACUITY: 1 day PAIN SCORE: 8/10 LOCATION: Bilateral chest FINDINGS: PA and lateral views of the chest demonstrate cardiomegaly with minimal interstitial prominence that may represent interstitial edema. Postop CABG. Pacer leads in right atrium and right ventricle. No pn eumothorax. Trace pleural fluid. CONCLUSION: 1. Cardiomegaly with probable mild interstitial edema pattern and trace pleural fluid characteristic of mild congestive heart failure. No pneumothorax. Sajan Whitmore MD on November 18, 2017 at 18:52 Board Certified Radiologist. This report was verified electronically.
[2017-11-18] MEDS ORDERED: MORPHINE SULFATE 2 MG/ML INJ IV PUSH ONE (19:00)
[2017-11-18] MEDS ORDERED: SODIUM CHLORID 0.9% 500 ML INJ 500 ML IV ONE (19:00)
--- NOTE | 2017-11-18 19:37 | PD ---
Physical Exam Date Seen by Provider: Nov 18, 2017 Time Seen by Provider: 18:30 Narrative I am seeing this patient with Niru Lamb PA-C. This is a 72-year-old gentleman with history of coronary disease, who presents here with complaints of 10 out of 10 chest pain. The patient has a interventricular conduction delay noted on 12-lead. His V2 and V3 lead appears to have changes from his previous. The patient reports that as epigastric/substernal. He denies any radiation. He states his to 10 out of 10 on the pain scale as above. Data Data Last Documented VS Vital Signs Date Time Temp Pulse Resp B/P (MAP) Pulse Ox O2 Delivery O2 Flow Rate FiO2 11/18/17 18:09 70 150/70 (96) 11/18/17 17:27 98.2 18 100 Orders Orders Electrocardiogram (11/18/17 17:30) Basic Metabolic Panel (Bmp) (11/18/17 17:30) B-Type Natriuretic Peptide (11/18/17 17:30) Ckmb (Isoenzyme) Profile (11/18/17 17:30) Complete Blood Count With Diff (11/18/17 17:30) Magnesium (Mg) (11/18/17 17:30) Prothrombin Time / Inr (Pt) (11/18/17 17:30) Act Partial Throm Time (Ptt) (11/18/17 17:30) Troponin I (11/18/17 17:30) Lipase (11/18/17 17:30) Chest, Pa & Lat (11/18/17 17:30) Ecg Monitoring (11/18/17 17:52) Bilateral Bp Monitoring (11/18/17 17:52) Iv Access Insert/Monitor (11/18/17 17:52) Nitroglycerin 2% Oint (Nitroglycerin 2% (11/18/17 18:15) Morphine Inj (Morphine Inj) (11/18/17 19:00) Sodium Chlorid 0.9% 500 Ml Inj (Ns 500 M (11/18/17 19:00) Consult Cardiology (11/18/17 ) Admit Order (Ed Use Only) (11/18/17 19:23) Labs Laboratory Tests Test 11/18/17 17:55 White Blood Count 8.9 TH/MM3 Red Blood Count 3.16 MIL/MM3 Hemoglobin 9.5 GM/DL Hematocrit 28.1 % Mean Corpuscular Volume 89.0 FL Mean Corpuscular Hemoglobin 30.2 PG Mean Corpuscular Hemoglobin Concent 33.9 % Red Cell Distribution Width 16.5 % Platelet Count 174 TH/MM3 Mean Platelet Volume 8.9 FL Neutrophils (%) (Auto) 59.4 % Lymphocytes (%) (Auto) 26.5 % Monocytes (%) (Auto) 9.0 % Eosinophils (%) (Auto) 4.7 % Basophils (%) (Auto) 0.4 % Neutrophils # (Auto) 5.3 TH/MM3 Lymphocytes # (Auto) 2.3 TH/MM3 Monocytes # (Auto) 0.8 TH/MM3 Eosinophils # (Auto) 0.4 TH/MM3 Basophils # (Auto) 0.0 TH/MM3 CBC Comment DIFF FINAL Differential Comment Prothrombin Time 19.0 SEC Prothromb Time International Ratio 1.9 RATIO Activated Partial Thromboplast Time 40.3 SEC Blood Urea Nitrogen 20 MG/DL Creatinine 2.13 MG/DL Random Glucose 147 MG/DL Calcium Level 7.9 MG/DL Magnesium Level 2.1 MG/DL Sodium Level 137 MEQ/L Potassium Level 4.8 MEQ/L Chloride Level 109 MEQ/L Carbon Dioxide Level 23.3 MEQ/L Anion Gap 5 MEQ/L Estimat Glomerular Filtration Rate 31 ML/MIN Total Creatine Kinase 86 U/L Troponin I 0.33 NG/ML Lipase 690 U/L [facility] Medical Record Reviewed: Yes Supervised Visit with ANTONIO: Yes Differential Diagnosis ACS versus pancreatitis versus GERD versus pulmonary emboli Narrative Course 72-year-old male with history coronary artery disease, presents today with complaint of epigastric/substernal chest pain. He reports it as 10 out of 10 on the pain scale. Patient had EKG images and V2 V3. There is no ST elevation. The patient's lipase was noted to be above 600. His troponin was also 0.33. The patient will be admitted to the hospital for the elevated lipase and elevated cardiac enzymes. We will hold off on anticoagulating until he is discussed with the attending physician. Diagnosis Primary Impression: Chest pain Additional Impressions: Elevated troponin Chronic kidney injury Pancreatitis Diabetes mellitus Coronary artery disease Hyperlipidemia Cardiac pacemaker in situ Admitting Information Admitting Physician Requests: Admit Devante Salcido MD Nov 18, 2017 19:37
[2017-11-18] MEDS ORDERED: SODIUM CHLOR 0.9% 1000 ML INJ 1,000 ML IV SCH (19:49)
[2017-11-18] MEDS ORDERED: MORPHINE SULFATE 4 MG/ML INJ IV PUSH PRN (20:00)
[2017-11-18] MEDS ORDERED: SODIUM CHLORIDE 0.9% FLUSH 10 ML FLUSH IV FLUSH PRN (20:00)
[2017-11-18] MEDS ORDERED: NALOXONE HCL 0.4 MG/ML AMP IV PUSH PRN (20:00)
[2017-11-18] MEDS ORDERED: ONDANSETRON HCL 4 MG/2 ML VIAL IVP PRN (20:00)
[2017-11-18] MEDS: HEPARIN SODIUM - SQ 10,000 UNITS/ML VIAL SQ SCH (20:56)
[2017-11-18] MEDS: SODIUM CHLORIDE 0.9% FLUSH 10 ML FLUSH IV FLUSH SCH (21:00)
[2017-11-18 21:32] VITALS: BP 107/57; PULSE 64; RESP 16; O2SAT 99
--- NOTE | 2017-11-18 22:18 | HHI.HP ---
[facility] Luiz Arguello M.D. Admission Diagnosis pancreatitis, CKD, elevated troponin Diagnoses: Travel History International Travel<30 Days: No Contact w/Intl Traveler <30 Da: No Traveled to Known Affected Are: No History of Present Illness 70-year-old male with a past medical history significant for bypass surgery, hypertension, hyperlipidemia, diabetes mellitus, hypothyroidism, CAD and chronic kidney disease presents to the emergency department for evaluation of chest pain. The patient states that earlier today he had sudden onset chest pressure that he describes as 10 out of 10 and substernal. He denies any radiation of the pain. He states the pain has been going on for approximately 2 days. Denies any associated shortness of breath. Denies fever/chills. No nausea/vomiting/diarrhea. No weakness or fatigue. Review of Systems Except as stated in HPI: all other systems reviewed are Neg Past Family Social History Past Medical History bypass surgery, hypertension, hyperlipidemia, diabetes mellitus, hypothyroidism and chronic kidney disease Past Surgical History Bypass surgery and pacemaker placement Reported Medications Reported Meds & Active Scripts Active Atorvastatin (Atorvastatin Calcium) 40 Mg Tab 40 Mg PO HS Amiodarone (Amiodarone HCl) 200 Mg Tab 400 Mg PO DAILY Allergies: Coded Allergies: No Known Allergies (Verified , 03/15/16) Family History Patient does not know Social History Denies alcohol, tobacco and illicit drugs Physical Exam Vital Signs Vital Signs Date Time Temp Pulse Resp B/P (MAP) Pulse Ox O2 Delivery O2 Flow Rate FiO2 11/18/17 21:32 64 16 107/57 (74) 99 Room Air 11/18/17 18:09 70 150/70 (96) 11/18/17 18:06 65 11/18/17 17:27 98.2 64 18 133/65 (87) 100 Physical Exam GENERAL: Male, lying in bed SKIN: No rashes, ecchymoses or lesions. Cool and dry. HEAD: Atraumatic. Normocephalic. No temporal or scalp tenderness. EYES: Pupils equal round and reactive. Extraocular motions intact. No scleral icterus. No injection or drainage. ENT: Nose without bleeding, purulent drainage or septal hematoma. Throat without erythema, tonsillar hypertrophy or exudate. Uvula midline. Airway patent. NECK: Trachea midline. No JVD or lymphadenopathy. Supple, nontender, no meningeal signs. CARDIOVASCULAR: Regular rate and rhythm without murmurs, gallops, or rubs. RESPIRATORY: Clear to auscultation. Breath sounds equal bilaterally. No wheezes , rales, or rhonchi. GASTROINTESTINAL: Abdomen soft, non-tender, nondistended. No hepato-splenomegaly , or palpable masses. No guarding. MUSCULOSKELETAL: Extremities without clubbing, cyanosis, or edema. No joint tenderness, effusion, or edema noted. No calf tenderness. NEUROLOGICAL: Awake and alert. Cranial nerves II through XII intact. Motor and sensory grossly within normal limits. Normal speech. Laboratory Laboratory Tests Test 11/18/17 17:55 White Blood Count 8.9 Red Blood Count 3.16 Hemoglobin 9.5 Hematocrit 28.1 Mean Corpuscular Volume 89.0 Mean Corpuscular Hemoglobin 30.2 Mean Corpuscular Hemoglobin Concent 33.9 Red Cell Distribution Width 16.5 Platelet Count 174 Mean Platelet Volume 8.9 Neutrophils (%) (Auto) 59.4 Lymphocytes (%) (Auto) 26.5 Monocytes (%) (Auto) 9.0 Eosinophils (%) (Auto) 4.7 Basophils (%) (Auto) 0.4 Neutrophils # (Auto) 5.3 Lymphocytes # (Auto) 2.3 Monocytes # (Auto) 0.8 Eosinophils # (Auto) 0.4 Basophils # (Auto) 0.0 CBC Comment DIFF FINAL Differential Comment Prothrombin Time 19.0 Prothromb Time International Ratio 1.9 Activated Partial Thromboplast Time 40.3 Blood Urea Nitrogen 20 Creatinine 2.13 Random Glucose 147 Calcium Level 7.9 Magnesium Level 2.1 Sodium Level 137 Potassium Level 4.8 Chloride Level 109 Carbon Dioxide Level 23.3 Anion Gap 5 Estimat Glomerular Filtration Rate 31 Total Creatine Kinase 86 Troponin I 0.33 B-Type Natriuretic Peptide 447 Lipase 690 Result Diagram: 11/18/17175411/18/171754 Caprini VTE Risk Assessment Caprini VTE Risk Assessment: Mod/High Risk (score >= 2) Caprini Risk Assessment Model Point Value = 1 Point Value = 2 Point Value = 3 Point Value = 5 Age 41-60 Minor surgery BMI > 25 kg/m2 Swollen legs Varicose veins or History of unexplained or recurrent spontaneous Oral contraceptives or hormone replacement Sepsis (< 1 month) Serious lung disease, including pneumonia (< 1 month) Abnormal pulmonary function Acute myocardial infarction Congestive heart failure (< 1 month) History of inflammatory bowel disease Medical patient at bed rest Age 61-74 Arthroscopic surgery Major open surgery (> 45 min) Laparoscopic surgery (> 45 min) Malignancy Confined to bed (> 72 hours) Immobilizing plaster cast Central venous access Age >= 75 History of VTE Family history of VTE Factor V Leiden Prothrombin [id number] Lupus anticoagulant Anticardiolipin antibodies Elevated serum homocysteine Heparin-induced thrombocytopenia Other congenital or acquired thrombophilia Stroke (< 1 month) Elective arthroplasty Hip, pelvis, or leg fracture Acute spinal cord injury (< 1 month) Prophylaxis Regimen Total Risk Factor Score Risk Level Prophylaxis Regimen 0-1 Low Early ambulation 2 Moderate Order ONE of the following: *Sequential Compression Device (SCD) *Heparin 5000 units SQ BID 3-4 Higher Order ONE of the following medications: *Heparin 5000 units SQ TID *Enoxaparin/Lovenox 40 mg SQ daily (WT < 150 kg, CrCl > 30 mL/min) *Enoxaparin/Lovenox 30 mg SQ daily (WT < 150 kg, CrCl > 10-29 mL/min) *Enoxaparin/Lovenox 30 mg SQ BID (WT < 150 kg, CrCl > 30 mL/min) AND/OR *Sequential Compression Device (SCD) 5 or more Highest Order ONE of the following medications: *Heparin 5000 units SQ TID (Preferred with Epidurals) *Enoxaparin/Lovenox 40 mg SQ daily (WT < 150 kg, CrCl > 30 mL/min) *Enoxaparin/Lovenox 30 mg SQ daily (WT < 150 kg, CrCl > 10-29 mL/min) *Enoxaparin/Lovenox 30 mg SQ BID (WT < 150 kg, CrCl > 30 mL/min) AND *Sequential Compression Device (SCD) Assessment and Plan Assessment and Plan Assessment/plan: 1. 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 Miner, will consult if needed 2. Acute on chronic renal insufficiency Creatinine 2.13, baseline between 1.5-1.8 Gentle IV fluid hydration Monitor renal function 3. Diabetes mellitus SSI Monitor blood glucose 4. Hypertension/hypothyroidism/hyperlipidemia Continue home medications once reconciled FEN NPO Electrolytes: monitor and replete prn Heparin NS at 60 cc/hr Physician Certification 2 Midnight Certification Type: Admission for Inpatient Services Order for Inpatient Services The services are ordered in accordance with Medicare regulations or non- Medicare payer requirements, as applicable. In the case of services not specified as inpatient-only, they are appropriately provided as inpatient services in accordance with the 2-midnight benchmark. Estimated LOS (days): 2 2 days is the estimated time the patient will need to remain in the hospital, assuming treatment plan goals are met and no additional complications. Post-Hospital Plan: Not yet determined Joana Enriquez MD Nov 18, 2017 22:17
[2017-11-18 22:20] VITALS: BP 111/63; PULSE 63; RESP 16; TEMP 98.3; O2SAT 95
[2017-11-18] MEDS ORDERED: GLUCAGON 1 MG/ML VIAL OTHER PRN (22:30)
[2017-11-18] MEDS: ATORVASTATIN 40 MG TAB PO SCH (22:46)
[2017-11-18] MEDS: NITROGLYCERIN 2% OINT 1 GM PACKET TOP SCH (22:47)
[2017-11-18 22:50] VITALS: PULSE 62
[2017-11-18 23:00] VITALS: BP 122/68; PULSE 60; RESP 16; TEMP 98.3; O2SAT 96
[2017-11-18] MEDS: DEXTROSE 50% IN WATER 50 ML VIAL(D50) IV PUSH PRN (23:16)
[2017-11-19] VITALS (11 sets, daily range): BP systolic 109–139; BP diastolic 57–68; PULSE 60–71; RESP 16–20; TEMP 98.1–98.8; O2SAT 93–96
[2017-11-19 00:45] LABS: TROPONIN I 0.3 NG/ML (0.02-0.05)
[2017-11-19] MEDS: HEPARIN SODIUM - SQ 10,000 UNITS/ML VIAL SQ SCH ×3 (05:22→23:21)
[2017-11-19] MEDS: NITROGLYCERIN 2% OINT 1 GM PACKET TOP SCH ×4 (05:22→23:24)
[2017-11-19 06:37] LABS: AUTOMATED NEUTROPHIL # 4.8 TH/MM3 (1.8-7.7); BASOPHIL % 0.5 % (0.0-2.0); EOSINOPHIL # 0.5 TH/MM3 (0-0.4); EOSINOPHIL % 5.9 % (0.0-4.0); HEMATOCRIT 27.2 % (39.0-51.0); HEMOGLOBIN 9.3 GM/DL (13.0-17.0); LYMPH % 29.7 % (9.0-44.0); LYMPHOCYTE # 2.6 TH/MM3 (1.0-4.8); MEAN CELL VOLUME 88.2 FL (80.0-100.0); MEAN CORPUSCULAR HEMOGLOBIN 30.1 PG (27.0-34.0); MEAN CORPUSCULAR HGB CONC 34.2 % (32.0-36.0); MEAN PLATELET VOLUME 8.9 FL (7.0-11.0); MONO % 8.9 % (0.0-8.0); MONOCYTE # 0.8 TH/MM3 (0-0.9); PLATELET COUNT 174 TH/MM3 (150-450); RED BLOOD COUNT 3.09 MIL/MM3 (4.50-5.90); RED CELL DISTRIBUTION WIDTH 16.3 % (11.6-17.2); WHITE BLOOD COUNT 8.7 TH/MM3 (4.0-11.0)
[2017-11-19 06:56] LABS: ALBUMIN 2.8 GM/DL (3.4-5.0); AST (GOT) 18 U/L (15-37); BICARBONATE 24.7 MEQ/L (21.0-32.0); BLOOD UREA NITROGEN 18 MG/DL (7-18); CALCIUM 8.1 MG/DL (8.5-10.1); CHLORIDE 109 MEQ/L (98-107); CREATININE 1.96 MG/DL (0.60-1.30); GLOMERULAR FILTRATION RATE 34 ML/MIN (>89); GLUCOSE,RANDOM 59 MG/DL (74-106); SODIUM (NA) 140 MEQ/L (136-145)
[2017-11-19 06:57] LABS: ALT (GPT) 26 U/L (12-78)
[2017-11-19 07:01] LABS: ALKALINE PHOSPHATASE 65 U/L (45-117); TOTAL BILIRUBIN ADULT 0.5 MG/DL (0.2-1.0); TOTAL PROTEIN 5.7 GM/DL (6.4-8.2); TROPONIN I 0.32 NG/ML (0.02-0.05)
[2017-11-19] MEDS: INSULIN ASPART SUPPLEMENTAL SCALE SQ SCH ×4 (08:00→21:00)
[2017-11-19] MEDS ORDERED: THIAMINE HCL 100 MG TAB PO ONE ×2 (08:00)
[2017-11-19] MEDS ORDERED: DEXT 5%-NACL 0.9% 1000 ML INJ 1,000 ML IV SCH (08:00)
[2017-11-19] MEDS: DEXTROSE 50% IN WATER 50 ML VIAL(D50) IV PUSH PRN (08:31)
[2017-11-19] MEDS: SODIUM CHLORIDE 0.9% FLUSH 10 ML FLUSH IV FLUSH SCH ×2 (09:16→21:00)
[2017-11-19] MEDS: AMIODARONE 200 MG TAB PO SCH (09:17)
--- NOTE | 2017-11-19 09:25 | HHI.PR ---
Subjective Remarks The patient is in the chair. Denies any pain in his belly. No nausea or vomiting. He is saturating well on room air at this time. She feels tired. Objective Vitals Vital Signs Date Time Temp Pulse Resp B/P (MAP) Pulse Ox O2 Delivery O2 Flow Rate FiO2 11/19/17 04:20 98.1 63 16 113/59 (77) 93 11/19/17 04:00 60 11/19/17 04:00 Room Air 11/19/17 00:00 60 11/18/17 23:00 Room Air 11/18/17 23:00 98.3 60 16 122/68 (86) 96 11/18/17 22:50 62 11/18/17 22:24 11/18/17 22:20 98.3 63 16 111/63 (79) 95 11/18/17 21:32 64 16 107/57 (74) 99 Room Air 11/18/17 18:09 70 150/70 (96) 11/18/17 18:06 65 11/18/17 17:27 98.2 64 18 133/65 (87) 100 I/O 11/18/17 11/18/17 11/18/17 11/19/17 11/19/17 11/19/17 07:00 15:00 23:00 07:00 15:00 23:00 Intake Total 0 ml Output Total 3503 ml Balance -3503 ml Intake Oral 0 ml Output Urine Total 3503 ml # Bowel Movements 0 Result Diagram: 11/19/17 0505 11/19/17 0505 Imaging Last Impressions Chest X-Ray 11/18/17 7280 Signed Impressions: Service Date/Time: Saturday, November 18, 2017 18:02 - CONCLUSION: 1. Cardiomegaly with probable mild interstitial edema pattern and trace pleural fluid characteristic of mild congestive heart failure. No pneumothorax. Sajan Whitmore MD Objective Remarks GENERAL: Male, lying in bed CARDIOVASCULAR: Regular rate and rhythm without murmurs, gallops, or rubs. RESPIRATORY: Clear to auscultation. Breath sounds equal bilaterally. No wheezes , rales, or rhonchi. GASTROINTESTINAL: Abdomen soft, non-tender, nondistended. No hepato-splenomegaly , or palpable masses. No guarding. MUSCULOSKELETAL: Extremities without clubbing, cyanosis, or edema. No joint tenderness, effusion, or edema noted. No calf tenderness. NEUROLOGICAL: Awake and alert. Cranial nerves II through XII intact. Motor and sensory grossly within normal limits. Normal speech. 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 Miner, will consult if needed Acute on chronic renal insufficiency Creatinine 2.13, baseline between 1.5-1.8 Gentle IV fluid hydration Monitor renal function Diabetes mellitus SSI Monitor blood glucose Hypertension/hypothyroidism/hyperlipidemia Continue home medications once reconciled FEN Electrolytes: monitor and replete prn Heparin NS at 60 cc/hr Sisi Santillan MD Nov 19, 2017 09:25
--- NOTE | 2017-11-19 11:54 | MB ---
cc: Ronald Miner MD DATE OF CONSULT: REASON FOR CONSULTATION: Abnormal troponin levels. HISTORY OF PRESENT ILLNESS: The patient is a 72-year-old Middle-Eastern male with a history of severe ischemic cardiomyopathy, coronary artery disease, hypertension, paroxysmal atrial fibrillation, paroxysmal ventricular tachycardia, who was in his usual state of health up until yesterday at about 5 p.m. when he began to experience left chest heaviness. There was no associated shortness of breath, nausea or diaphoresis. The chest discomfort persisted in a constant fashion for several hours. This morning he has no chest pain. He also denies shortness of breath, paroxysmal nocturnal dyspnea, pedal edema, dizziness, syncope, near syncope, palpitations, flu symptoms. PAST MEDICAL HISTORY: 1. Coronary artery disease, status post inferior myocardial infarction in January 2006 with cardiac catheterization at that time showing severe three-vessel coronary artery disease leading to bypass surgery with a left internal mammary artery to the LAD, vein graft to the diagonal, vein graft to the obtuse marginal, vein graft to the posterior descending artery. All of his vein grafts have subsequently been found to be totally occluded. His last heart catheterization was 09/18/2017 showing 40% distal left main, totally occluded proximal LAD, 90%-95% proximal and mid-diagonal lesions, totally occluded obtuse marginal, 30% proximal obtuse marginal, 25% proximal left circumflex, diffusely diseased right coronary artery with 30% proximal. The left internal mammary artery to the LAD was widely patent. 2. History of Biotronik AICD implant July 2011. 3. Severe ischemic cardiomyopathy with ejection fraction of approximately 30%. 4. Hyperlipidemia. 5. Hypertension. 6. Paroxysmal atrial fibrillation. 7. Paroxysmal ventricular tachycardia initially right after his bypass surgery. He had recurrent ventricular tachycardia August 2017. MEDICATIONS: CARDIAC MEDICATIONS: Atorvastatin 40 mg p.o. at bedtime, amiodarone 400 mg p.o. daily, amlodipine 10 mg daily, aspirin 81 mg daily, Lotensin 10 mg daily, carvedilol 3.125 mg twice a day, Imdur 30 mg daily. ALLERGIES: NO KNOWN DRUG ALLERGIES. FAMILY HISTORY: Noncontributory. SOCIAL HISTORY: The patient is a former smoker. There is no history of alcohol abuse. REVIEW OF SYSTEMS: As in the history of present illness, otherwise negative or noncontributory. He also denies headache, melena, bright red blood per rectum. He has had mild diffuse abdominal pain recently without fevers. PHYSICAL EXAMINATION: VITAL SIGNS: Blood pressure 113/59 with a pulse of 63, respirations 16. GENERAL: He is a well-developed thin Middle-Eastern male in no acute distress. HEENT: Jugular venous pressure is normal. Carotid pulses are 2+ bilaterally and without bruits. CHEST: Examination of the chest reveals clear lung stanley. CARDIAC: He has a regular rhythm and rate without S3, S4 or murmur. ABDOMEN: He has a soft, nontender abdomen. Bowel sounds are present. There is no definite hepatosplenomegaly. EXTREMITIES: Reveals no clubbing, cyanosis or edema. LABORATORY DATA: Potassium 4.8, BUN 18, creatinine 1.96. Troponin 0.33, CK 86, lipase 690. WBC 8.7, hemoglobin 9.3, platelets 174. IMAGING STUDIES: Chest x-ray shows minimal increased interstitial markings. EKG: Shows sinus rhythm, nonspecific intraventricular conduction delay, inferior and anterolateral T-wave abnormality, consider ischemia. IMPRESSION: Atypical chest pain, minimally elevated troponin levels in this 72-year-old Middle-Eastern male with a history of coronary artery disease, severe ischemic cardiomyopathy, paroxysmal ventricular tachycardia, paroxysmal atrial fibrillation, hypertension, history of AICD implant. Despite several hours of constant chest discomfort, CK levels are negative for myocardial infarction. Some of the elevation in troponin may be due to his renal insufficiency. Cardiac catheterization 2 months ago showed no significant changes in coronary/graft anatomy compare to the last cardiac catheterization 2010. There is questionably minimal heart failure by chest x-ray. He has had no definite AICD shocks recently. He has had no recent atrial fibrillation. Since August he has had no recurrent ventricular tachycardia. His home medication list at this point is somewhat unclear. He is also supposed to be taking Xarelto as his risk of thromboembolic phenomena with atrial fibrillation is high. RECOMMENDATIONS: 1. Interrogate his AICD. 2. Will review his home medications on our office notes; would resume all of these home medications except the ELIZABETH inhibitor given his renal insufficiency. 3. Will follow up as needed. If his AICD interrogation is unrevealing, he is cleared for discharge from a cardiac standpoint. ADDENDUM: ICD interrogation today shows no recent ventricular tachycardia or atrial fibrillation. ICD function is normal. Ronald Miner MD GHPatricia/TL/ , 08:20 AM , 10:23 AM [email or web address]
[2017-11-19] MEDS: ASPIRIN EC 81 MG TABEC PO SCH (12:19)
[2017-11-19] MEDS: SODIUM CHLOR 0.9% 1000 ML INJ 1,000 ML IV SCH (18:27)
--- NOTE | 2017-11-19 19:13 | ECHRPT ---
Indication: CHEST PAIN CONCLUSIONS Normal left ventricular size. Mild concentric left ventricular hypertrophy. The left ventricular systolic function is moderately reduced with an estimated ejection fraction in the range of 35-40%. Distal anteroseptal and apical hypokinesis. The the left atrial size is moderately dilated. The right atrial size is moderately dilated. . [id number] mitral valve regurgitation. Aortic valve sclerosis is present. Trace aortic valve regurgitation. There is moderate tricuspid regurgitation. The estimated pulmonary arterial pressure is 54 mmHg. Mild pulmonary valve regurgitation. BP: 113 / 59 HR: 63 Rhythm: Sinus MEASUREMENTS (Male / Female) Normal Values Technical Quality:Fair 2D ECHO LV Diastolic Diameter PLAX 5.3 cm 4.2 - 5.9 / 3.9 - 5.3 cm LV Systolic Diameter PLAX 4.6 cm IVS Diastolic Thickness 1.1 cm 0.6 - 1.0 / 0.6 - 0.9 cm LVPW Diastolic Thickness 1.1 cm 0.6 - 1.0 / 0.6 - 0.9 cm LV Relative Wall Thickness 0.4 RV Internal Dim ED PLAX 3.7 cm LVOT Diameter 1.5 cm Aortic Root Diameter 2.9 cm LA Systolic Diameter LX 4.4 cm 3.0 - 4.0 / 2.7 - 3.8 cm M-MODE AV Cusp Separation MM 1.7 cm DOPPLER AV Peak Velocity 153.0 cm/s AV Peak Gradient 9.4 mmHg AV Mean Gradient 5.0 mmHg AV Velocity Time Integral 29.3 cm LVOT Peak Velocity 90.2 cm/s LVOT Peak Gradient 3.3 mmHg LVOT Velocity Time Integral 18.8 cm AV Area Cont Eq vti 1.1 cm AV Area Cont Eq pk 1.0 cm Mitral E Point Velocity 128.0 cm/s Mitral A Point Velocity 63.2 cm/s Mitral E to A Ratio 2.0 LV E' Lateral Velocity 10.0 cm/s Mitral E to LV E' Lateral Ratio 12.8 LV E' Septal Velocity 4.6 cm/s Mitral E to LV E' Septal Ratio 27.9 TR Peak Velocity 333.0 cm/s TR Peak Gradient 44.4 mmHg Right Atrial Pressure 10.0 mmHg Pulmonary Artery Systolic Pressu 54.4 mmHg Right Ventricular Systolic Press 54.4 mmHg PV Peak Velocity 64.7 cm/s PV Peak Gradient 1.7 mmHg FINDINGS LEFT VENTRICLE Normal left ventricular size. Mild concentric left ventricular hypertrophy. The left ventricular systolic function is moderately reduced with an estimated ejection fraction in the range of 35-40%. Distal anteroseptal and apical hypokinesis. RIGHT VENTRICLE Normal right ventricular size and systolic function. LEFT ATRIUM The the left atrial size is moderately dilated. RIGHT ATRIUM The right atrial size is moderately dilated. ATRIAL SEPTUM No atrial level shunt is demonstrated by color flow Doppler interrogation. AORTA The aortic root and proximal ascending aorta are not well visualized. MITRAL VALVE [id number] mitral valve regurgitation. AORTIC VALVE Aortic valve sclerosis is present. Trace aortic valve regurgitation. TRICUSPID VALVE There is moderate tricuspid regurgitation. The estimated pulmonary arterial pressure is 54.4 mmHg. PULMONARY VALVE Mild pulmonary valve regurgitation. VESSELS The inferior vena cava is normal in size. PERICARDIUM No pericardial effusion. Gallo Russ MD, FACC (Electronically Signed) Final Date:19 November 2017 19:12
--- NOTE | 2017-11-19 22:40 | EKG ---
Date Performed: 11/18/2017 Time Performed: 17:44:09 PTAGE: 72 years EKG: Sinus rhythm WITH FIRST DEGREE AV BLOCK MODERATE INTRAVENTRICULAR CONDUCTION DELAY ST DEVIATION AND MARKED T-WAVE ABNORMALITY ABNORMAL ECG Compared to prior tracing, V pacing no longer present DOCTOR: Gallo Russ Interpretating Date/Time 11/19/2017 22:38:50
--- NOTE | 2017-11-19 23:14 | RADRPT ---
EXAM DATE/TIME: 11/19/2017 22:48 [facility] COMPARISON: No previous studies available for comparison. INDICATIONS : Abnormal labs. MEDICAL HISTORY : Hypercholesterolemia. Hypertension. Anticoagulant therapy. Chest pain. Diabetes. SURGICAL HISTORY : CABG. Pacemaker. Left leg surgery. ENCOUNTER: Initial ACUITY: 1 day PAIN SCORE: 3/10 LOCATION: Right upper quadrant MEASUREMENTS: LIVER: 13.7 cm length COMMON DUCT: 10 mm RIGHT KIDNEY: 8.6 x 3.9 x 3.7 cm cm FINDINGS: LIVER: Normal echotexture without focal lesion or ductal dilatation. COMMON DUCT: Slightly prominent without evidence for intraluminal mass or stone in the visualized portions. GALLBLADDER: Contains a small amount of sludge with borderline gallbladder wall thickening. No sonographic Sherwood sign or pericholecystic fluid. PANCREAS: The visualized portions are within normal limits. RIGHT KIDNEY: No evidence of hydronephrosis, stone, or mass. Slightly diffusely increased cortical echogenicity. CONCLUSION: 1. Gallbladder sludge with slight gallbladder wall thickening. 2. Central common bile duct is prominent measuring up to 10 mm. No evidence for intraluminal stone or mass in the visualized central common bile duct. No intrahepatic ductal dilatation. As such, the fin dings are somewhat nonspecific. Differential considerations include distal CBD lesion, ampullary lesi on or occult pancreatic mass. Consider MRCP or ERCP examination for better evaluation. 3. Increased renal cortical echogenicity consistent with medical renal disease. Wai Russo MD on November 19, 2017 at 23:09 Board Certified Radiologist. This report was verified electronically.
[2017-11-19] MEDS: CARVEDILOL 3.125 MG TAB PO SCH (23:20)
[2017-11-19] MEDS: ATORVASTATIN 40 MG TAB PO SCH (23:20)
[2017-11-19] MEDS: ACETAMINOPHEN 325 MG TAB PO PRN (23:20)
[2017-11-20] VITALS (12 sets, daily range): BP systolic 116–142; BP diastolic 60–85; PULSE 60–76; RESP 14–20; TEMP 96–98.5; O2SAT 94–98
[2017-11-20] MEDS: ACETAMINOPHEN 325 MG TAB PO PRN (05:15)
[2017-11-20] MEDS: NITROGLYCERIN 2% OINT 1 GM PACKET TOP SCH (05:15)
[2017-11-20] MEDS: HEPARIN SODIUM - SQ 10,000 UNITS/ML VIAL SQ SCH (05:15)
[2017-11-20] MEDS: SODIUM CHLOR 0.9% 1000 ML INJ 1,000 ML IV SCH (05:50)
[2017-11-20] MEDS: ISOSORBIDE MONONITRATE 30 MG CR TAB (IMDUR) PO SCH (06:40)
[2017-11-20 07:50] LABS: AUTOMATED NEUTROPHIL # 3.8 TH/MM3 (1.8-7.7); BASOPHIL % 0.6 % (0.0-2.0); EOSINOPHIL # 0.6 TH/MM3 (0-0.4); EOSINOPHIL % 7.5 % (0.0-4.0); HEMATOCRIT 28.5 % (39.0-51.0); HEMOGLOBIN 9.6 GM/DL (13.0-17.0); LYMPH % 33.6 % (9.0-44.0); LYMPHOCYTE # 2.5 TH/MM3 (1.0-4.8); MEAN CELL VOLUME 88.9 FL (80.0-100.0); MEAN CORPUSCULAR HGB CONC 33.8 % (32.0-36.0); MEAN PLATELET VOLUME 8.8 FL (7.0-11.0); MONO % 7.4 % (0.0-8.0); MONOCYTE # 0.6 TH/MM3 (0-0.9); NEUT % 50.9 % (16.0-70.0); PLATELET COUNT 169 TH/MM3 (150-450); RED CELL DISTRIBUTION WIDTH 16.2 % (11.6-17.2); WHITE BLOOD COUNT 7.5 TH/MM3 (4.0-11.0)
[2017-11-20] MEDS: INSULIN ASPART SUPPLEMENTAL SCALE SQ SCH ×4 (08:00→21:51)
[2017-11-20 08:11] LABS: BICARBONATE 22.9 MEQ/L (21.0-32.0); CREATININE 1.99 MG/DL (0.60-1.30)
[2017-11-20 08:55] LABS: ACANTHOCYTES OCC (NORMAL)
[2017-11-20] MEDS: AMIODARONE 200 MG TAB PO SCH (09:41)
[2017-11-20] MEDS: CARVEDILOL 3.125 MG TAB PO SCH ×2 (09:41→20:46)
[2017-11-20] MEDS: ASPIRIN EC 81 MG TABEC PO SCH (09:41)
[2017-11-20] MEDS: RIVAROXABAN 15 MG TAB PO SCH (09:42)
[2017-11-20] MEDS: SODIUM CHLORIDE 0.9% FLUSH 10 ML FLUSH IV FLUSH SCH ×2 (09:42→20:47)
[2017-11-20] MEDS: amLODIPine BESYLATE 5 MG TAB PO SCH (09:42)
--- NOTE | 2017-11-20 10:26 | HHI.PR ---
Subjective Remarks The patient is in bed. Feels much better today. No abdominal pain. No nausea vomiting no diarrhea or constipation. Denies fever chills. Objective Vitals Vital Signs Date Time Temp Pulse Resp B/P (MAP) Pulse Ox O2 Delivery O2 Flow Rate FiO2 11/20/17 08:00 96.2 74 17 139/65 (89) 94 11/20/17 06:41 125/85 (98) 11/20/17 05:08 98.0 74 14 119/70 (86) 96 11/20/17 03:44 60 11/20/17 00:45 97.8 76 14 119/70 (86) 98 11/20/17 00:00 60 11/19/17 21:20 Room Air 11/19/17 20:20 98.4 71 16 119/62 (81) 94 11/19/17 20:00 61 11/19/17 17:08 60 11/19/17 16:05 98.8 63 20 139/68 (91) 96 11/19/17 12:05 98.3 60 20 109/57 (74) 96 11/19/17 11:58 62 I/O 11/19/17 11/19/17 11/19/17 11/20/17 11/20/17 11/20/17 07:00 15:00 23:00 07:00 15:00 23:00 Intake Total 0 ml 900 ml 1120 ml Output Total 3503 ml 1800 ml 1450 ml Balance -3503 ml 900 ml -680 ml -1450 ml Intake Oral 0 ml 320 ml IV Total 900 ml 800 ml Output Urine Total 3503 ml 1800 ml 1450 ml # Voids 2 # Bowel Movements 0 0 Result Diagram: 11/20/17 0605 11/20/17 0605 Imaging Last Impressions Gall Bladder Ultrasound 11/19/17 0000 Signed Impressions: Service Date/Time: Sunday, November 19, 2017 22:48 - CONCLUSION: 1. Gallbladder sludge with slight gallbladder wall thickening. 2. Central common bile duct is prominent measuring up to 10 mm. No evidence for intraluminal stone or mass in the visualized central common bile duct. No intrahepatic ductal dilatation. As such, the findings are somewhat nonspecific. Differential considerations include distal CBD lesion, ampullary lesion or occult pancreatic mass. Consider MRCP or ERCP examination for better evaluation. 3. Increased renal cortical echogenicity consistent with medical renal disease. Wai Bozorgmanesh, MD Chest X-Ray 11/18/17 1730 Signed Impressions: Service Date/Time: Saturday, November 18, 2017 18:02 - CONCLUSION: 1. Cardiomegaly with probable mild interstitial edema pattern and trace pleural fluid characteristic of mild congestive heart failure. No pneumothorax. Sajan Whitmore MD Objective Remarks GENERAL: Male, lying in bed CARDIOVASCULAR: Regular rate and rhythm without murmurs, gallops, or rubs. RESPIRATORY: Clear to auscultation. Breath sounds equal bilaterally. No wheezes , rales, or rhonchi. GASTROINTESTINAL: Abdomen soft, non-tender, nondistended. No hepato-splenomegaly , or palpable masses. No guarding. MUSCULOSKELETAL: Extremities without clubbing, cyanosis, or edema. No joint tenderness, effusion, or edema noted. No calf tenderness. NEUROLOGICAL: Awake and alert. Cranial nerves II through XII intact. Motor and sensory grossly within normal limits. Normal speech. A/P Assessment and Plan Acute pancreatitis Lipase elevated 600s on admission full Liquid diet, advance diet as tolerated Monitor lipase. Lipase is back to normal US reviewed findings consistent with distal common bile duct lesion, ampullary lesion or occult pancreatic mass. No evidence of stone or mass on the common bile duct. Gallbladder with sludge. Consult GI for evaluation, appreciate recommendations. Might consider MRCP. However patient has an AICD and not able to have MRCP. Plan for CT with contrast however patient function not at baseline and might worsen, might consider low-dose dye will discuss with radiology. Hypoglycemia resolved. Monitor blood sugar Chest pain/elevated troponin/CHF Troponin 0.33, likely baseline for the patient BNP 447, baseline EKG shows sinus rhythm with first-degree AV block and T-wave inversions, personally reviewed ACS rule out pending; serial troponins/EKGs Patient's cement mixer is Dr. Miner, consulted cleared patient for DC to f./u as OP Acute on chronic renal insufficiency Creatinine 2.13, baseline between 1.5-1.8. improved Gentle IV fluid hydration. DCd Monitor renal function Diabetes mellitus SSI Monitor blood glucose Hypertension/hypothyroidism/hyperlipidemia Continue home medications once reconciled FEN Electrolytes: monitor and replete prn Heparin Sisi Santillan MD Nov 20, 2017 10:26
--- NOTE | 2017-11-20 11:43 | PD.CONS ---
HPI History of Present Illness This is a 72 year old male with AICD who presented with chest pain and epigastric pain which has since resolved. Onset 3 days ago. He denies n/v, diarrhea, black tarry stool, blood in stool, prior hx pancreatitis. he does not drink alcohol and is a strict vegetarian. He is being followed now by Dr Miner and undergoing AICD interrogation tomorrow. he denies any pain or GI complaints at this time and wants to go home. (Franny Santana) PFSH Past Medical History bypass surgery, hypertension, hyperlipidemia, diabetes mellitus, hypothyroidism and chronic kidney disease Past Surgical History Bypass surgery and pacemaker placement (Franny Santana) Coded Allergies: No Known Allergies (Verified , 03/15/16) Family History Patient does not know Social History Denies alcohol, tobacco and illicit drugs (Franny Santana) Review of Systems Constitutional: DENIES: Fever Endocrine: DENIES: Polydipsia Eyes: DENIES: Blurred vision Ears, nose, mouth, throat: DENIES: Hearing loss Respiratory: DENIES: Cough Cardiovascular: DENIES: Chest pain Gastrointestinal: DENIES: Abdominal pain, Diarrhea, Nausea, Vomiting Genitourinary: DENIES: Hematuria Musculoskeletal: DENIES: Joint pain Integumentary: DENIES: Abnormal pigmentation Hematologic/lymphatic: DENIES: Bruising Immunologic/allergic: DENIES: Eczema Neurologic: DENIES: Abnormal gait Psychiatric: DENIES: Confusion (Franny Santana) GI Exam Vitals I&O Vital Signs Date Time Temp Pulse Resp B/P (MAP) Pulse Ox O2 Delivery O2 Flow Rate FiO2 11/20/17 08:00 96.2 74 17 139/65 (89) 94 11/20/17 06:41 125/85 (98) 11/20/17 05:08 98.0 74 14 119/70 (86) 96 11/20/17 03:44 60 11/20/17 00:45 97.8 76 14 119/70 (86) 98 11/20/17 00:00 60 11/19/17 21:20 Room Air 11/19/17 20:20 98.4 71 16 119/62 (81) 94 11/19/17 20:00 61 11/19/17 17:08 60 11/19/17 16:05 98.8 63 20 139/68 (91) 96 11/19/17 12:05 98.3 60 20 109/57 (74) 96 11/19/17 11:58 62 I/O 11/19/17 11/19/17 11/19/17 11/20/17 11/20/17 11/20/17 06:59 14:59 22:59 06:59 14:59 22:59 Intake Total 0 ml 900 ml 1120 ml Output Total 3503 ml 1800 ml 1450 ml Balance -3503 ml 900 ml -680 ml -1450 ml Intake Oral 0 ml 320 ml IV Total 900 ml 800 ml Output Urine Total 3503 ml 1800 ml 1450 ml # Voids 2 # Bowel Movements 0 0 Imaging Last Impressions Gall Bladder Ultrasound 11/19/17 0000 Signed Impressions: Service Date/Time: Sunday, November 19, 2017 22:48 - CONCLUSION: 1. Gallbladder sludge with slight gallbladder wall thickening. 2. Central common bile duct is prominent measuring up to 10 mm. No evidence for intraluminal stone or mass in the visualized central common bile duct. No intrahepatic ductal dilatation. As such, the findings are somewhat nonspecific. Differential considerations include distal CBD lesion, ampullary lesion or occult pancreatic mass. Consider MRCP or ERCP examination for better evaluation. 3. Increased renal cortical echogenicity consistent with medical renal disease. Wai Russo MD Chest X-Ray 11/18/17 8240 Signed Impressions: Service Date/Time: Saturday, November 18, 2017 18:02 - CONCLUSION: 1. Cardiomegaly with probable mild interstitial edema pattern and trace pleural fluid characteristic of mild congestive heart failure. No pneumothorax. Sajan Whitmore MD Laboratory Test 11/20/17 06:05 White Blood Count 7.5 TH/MM3 Red Blood Count 3.20 MIL/MM3 Hemoglobin 9.6 GM/DL Hematocrit 28.5 % Mean Corpuscular Volume 88.9 FL Mean Corpuscular Hemoglobin 30.0 PG Mean Corpuscular Hemoglobin Concent 33.8 % Red Cell Distribution Width 16.2 % Platelet Count 169 TH/MM3 Mean Platelet Volume 8.8 FL Neutrophils (%) (Auto) 50.9 % Lymphocytes (%) (Auto) 33.6 % Monocytes (%) (Auto) 7.4 % Eosinophils (%) (Auto) 7.5 % Basophils (%) (Auto) 0.6 % Neutrophils # (Auto) 3.8 TH/MM3 Lymphocytes # (Auto) 2.5 TH/MM3 Monocytes # (Auto) 0.6 TH/MM3 Eosinophils # (Auto) 0.6 TH/MM3 Basophils # (Auto) 0.0 TH/MM3 CBC Comment AUTO DIFF Differential Comment AUTO DIFF CONFIRMED Acanthocytes OCC Blood Urea Nitrogen 15 MG/DL Creatinine 1.99 MG/DL Random Glucose 83 MG/DL Calcium Level 8.0 MG/DL Sodium Level 139 MEQ/L Potassium Level 4.7 MEQ/L Chloride Level 109 MEQ/L Carbon Dioxide Level 22.9 MEQ/L Anion Gap 7 MEQ/L Estimat Glomerular Filtration Rate 33 ML/MIN Lipase 373 U/L Physical Examination HEENT: PERRL; normocephalic; atraumatic; no jaundice. CHEST: CTA CARDIAC: RRR ABDOMEN: Soft, nondistended, nontender; no hepatosplenomegaly; bowel sounds are present in all four quadrants. EXTREMITIES: No clubbing, cyanosis, or edema. SKIN: hypopigmentation BUE distal digits, BLE; no rash; no jaundice. PIPE JEEPER: No focal deficits; alert and oriented times three. (Franny Santana) Assessment and Plan Plan ASSESSMENT - epigastric pain, elevated lipase - could be pancreatitis, pt asymptomatic at this time. no LFT derangement US showed prominent CBD 10mm, GB sludge, no evidence stone in CBD. cannot have MRCP, has AICD - chest pain, elevated troponin - Dr Miner following, pending interrogation AICD PLAN - CT abd - low fat diet - monitor labs - supportive care pt seen by myself and Dr Christopher and this note is on his behalf (Franny Santana) Plan Patient was seen and examined, agree with above-noted, unable to do MRCP to evaluate the duct so we will see if the patient can get a CT scan for evaluation , unfortunately his creatinine is high so we will ask radiology to see if a lower dose can be used, patient seems to be more comfortable, we will monitor labs, may need laparoscopic cholecystectomy, unlikely to need ERCP with improvement of his labs (Xenia Christopher MD) Franny Santana Nov 20, 2017 11:43 Xenia Christopher MD Nov 20, 2017 16:07
[2017-11-20] MEDS ORDERED: IODIXANOL 320 MG/ML 10 ML VIAL (for Rad CT) IVCONTRAST ONE (15:28)
--- NOTE | 2017-11-20 16:15 | RADRPT ---
EXAM DATE/TIME: 11/20/2017 15:24 [facility] COMPARISON: CT ABDOMEN & PELVIS W/O CONTRAST, March 28, 2015, 19:12. CT ABDOMEN & PELVIS W/O CONTRAST, March 15 016, 7:48. US ABDOMEN - GALLBLADDER, November 19, 2017, 22:48. INDICATIONS : Dilated common bile duct IV CONTRAST: 50 cc Visipaque (iodixanol) IV ORAL CONTRAST: No oral contrast ingested. RADIATION DOSE: 4.46 CTDIvol (mGy) MEDICAL HISTORY : Cardiovascular disease. Hypertension. Diabetes mellitus type 2. SURGICAL HISTORY : Pacemaker. ENCOUNTER: Initial ACUITY: 1 day PAIN SCALE: 5/10 LOCATION: upper quadrant TECHNIQUE: Volumetric scanning of the abdomen was performed. Using automated exposure control and adjustment of the mA and/or kV according to patient size, radiation dose was kept as low as reasonably achievable to obtain optimal diagnostic quality images. DICOM format image data is available electronically for review and comparison. FINDINGS: Examination quality is degraded by respiratory motion artifact. LOWER LUNGS: There are small bilateral pleural effusions, right larger than left with adjacent compressive atelect asis in the lower lobes. Cardiac pacing wire is present in the right heart. There is enlargement of t he left ventricle. LIVER: No liver lesion is identified. There is a calcified stone in the gallbladder. No intrahepatic bile du ct dilatation is present. The common bile duct measures approximately 8 mm in maximal dimension and t apers near the ampulla. The common duct previously measured 7 mm on the 03/15/2016 examination. SPLEEN: Normal size without lesion. PANCREAS: No pancreas lesion is identified. No duct dilatation is present. KIDNEYS: Normal in size and shape. There is no mass, stone, or hydronephrosis. ADRENAL GLANDS: Within normal limits. AORTA/RETROPERITONEAL: There is no aneurysm or lymphadenopathy. There is severe atherosclerotic disease. BOWEL/MESENTERY: The stomach and visualized small and large bowel demonstrate no abnormality. A small hiatal hernia is present. ABDOMINAL WALL: Within normal limits. MUSCULOSKELETAL: There are degenerative changes of the lumbar spine. CONCLUSION: 1. Examination quality is degraded secondary to respiratory motion artifact. The common bile duct rissa sures up to 8 mm in diameter which is similar to the prior CT from 2016. Additionally, no calcified s tone is seen in the common duct and no distal obstructing mass is appreciated within limitation of mo tion artifact. Also, there is no intrahepatic bile duct dilatation. It would be reasonable to conside r a followup pancreas protocol CT on an elective outpatient basis for followup when the patient is ab le to better able to cooperate with the examination. 2. Cholelithiasis. 3. Small bilateral pleural effusions, right larger than left. 4. Nonacute findings include small hiatal hernia and severe atherosclerotic disease. Eliazar Al MD on November 20, 2017 at 16:04 Board Certified Radiologist. This report was verified electronically.
[2017-11-20] MEDS: ATORVASTATIN 40 MG TAB PO SCH (20:46)
[2017-11-21] VITALS (11 sets, daily range): BP systolic 118–134; BP diastolic 59–94; PULSE 59–63; RESP 17–18; TEMP 97.6–98.6; O2SAT 93–96
[2017-11-21] MEDS: SODIUM CHLOR 0.9% 1000 ML INJ 1,000 ML IV SCH ×2 (05:48→17:36)
[2017-11-21] MEDS: ISOSORBIDE MONONITRATE 30 MG CR TAB (IMDUR) PO SCH (05:49)
[2017-11-21] MEDS: INSULIN ASPART SUPPLEMENTAL SCALE SQ SCH ×4 (08:00→21:17)
[2017-11-21] MEDS: SODIUM CHLORIDE 0.9% FLUSH 10 ML FLUSH IV FLUSH SCH ×2 (08:56→21:17)
[2017-11-21] MEDS: CARVEDILOL 3.125 MG TAB PO SCH ×2 (08:56→21:16)
[2017-11-21] MEDS: ASPIRIN EC 81 MG TABEC PO SCH (08:56)
[2017-11-21] MEDS: AMIODARONE 200 MG TAB PO SCH (08:56)
[2017-11-21] MEDS: amLODIPine BESYLATE 5 MG TAB PO SCH (08:56)
[2017-11-21] MEDS: RIVAROXABAN 15 MG TAB PO SCH (08:58)
[2017-11-21] MEDS ORDERED: ISOS30TA3 PO (09:16)
[2017-11-21] MEDS ORDERED: CARV3.125 PO (09:16)
[2017-11-21] MEDS ORDERED: ECASA81 PO (09:16)
[2017-11-21] MEDS ORDERED: XARE15TA PO (09:16)
[2017-11-21] MEDS ORDERED: AMLO5 PO (09:16)
--- NOTE | 2017-11-21 09:17 | HHI.DS ---
Discharge Summary Admission Date Nov 18, 2017 at 19:26 Discharge Date: Nov 22, 2017 Admitting Diagnosis pancreatitis, CKD, elevated troponin (1) Cardiac pacemaker in situ ICD Code: Z95.0 - Cardiac pacemaker in situ Status: Acute (2) Coronary artery disease ICD Code: I25.10 - Coronary artery disease Status: Chronic (3) DM (diabetes mellitus) ICD Code: E11.9 - DM (diabetes mellitus) Status: Chronic (4) HTN (hypertension) ICD Code: I10 - HTN (hypertension) Status: Chronic (5) Acute on chronic renal insufficiency ICD Code: N17.9 - Acute on chronic renal insufficiency; N18.9 - Chronic kidney disease, unspecified Status: Acute (6) Pancreatitis ICD Code: K85.9 - Pancreatitis Status: Acute (7) Paroxysmal atrial fibrillation ICD Code: I48.0 - Paroxysmal atrial fibrillation Status: Chronic (8) CKD (chronic kidney disease), stage III ICD Code: N18.3 - Chronic kidney disease, stage 3 (moderate) Status: Chronic (9) H/O heart bypass surgery ICD Code: Z95.1 - H/O heart bypass surgery Status: Chronic (10) History of permanent cardiac pacemaker placement ICD Code: Z95.0 - History of permanent cardiac pacemaker placement Status: Chronic Procedures none Brief History - From Admission 70-year-old male with a past medical history significant for bypass surgery, hypertension, hyperlipidemia, diabetes mellitus, hypothyroidism, CAD and chronic kidney disease presents to the emergency department for evaluation of chest pain. The patient states that earlier today he had sudden onset chest pressure that he describes as 10 out of 10 and substernal. He denies any radiation of the pain. He states the pain has been going on for approximately 2 days. Denies any associated shortness of breath. Denies fever/chills. No nausea/vomiting/diarrhea. No weakness or fatigue. CBC/BMP: 11/20/17 0605 11/20/17 0605 Significant Findings Laboratory Tests Test 11/18/17 17:55 11/18/17 23:57 11/19/17 05:05 11/20/17 06:05 Red Blood Count 3.16 MIL/MM3 (4.50-5.90) 3.09 MIL/MM3 (4.50-5.90) 3.20 MIL/MM3 (4.50-5.90) Hemoglobin 9.5 GM/DL (13.0-17.0) 9.3 GM/DL (13.0-17.0) 9.6 GM/DL (13.0-17.0) Hematocrit 28.1 % (39.0-51.0) 27.2 % (39.0-51.0) 28.5 % (39.0-51.0) Monocytes (%) (Auto) 9.0 % (0.0-8.0) 8.9 % (0.0-8.0) Eosinophils (%) (Auto) 4.7 % (0.0-4.0) 5.9 % (0.0-4.0) 7.5 % (0.0-4.0) Prothrombin Time 19.0 SEC (9.8-11.6) Activated Partial Thromboplast Time 40.3 SEC (24.3-30.1) Blood Urea Nitrogen 20 MG/DL (7-18) Creatinine 2.13 MG/DL (0.60-1.30) 1.96 MG/DL (0.60-1.30) 1.99 MG/DL (0.60-1.30) Random Glucose 147 MG/DL (74-106) 59 MG/DL (74-106) Calcium Level 7.9 MG/DL (8.5-10.1) 8.1 MG/DL (8.5-10.1) 8.0 MG/DL (8.5-10.1) Chloride Level 109 MEQ/L (98-107) 109 MEQ/L (98-107) 109 MEQ/L (98-107) Estimat Glomerular Filtration Rate 31 ML/MIN (>89) 34 ML/MIN (>89) 33 ML/MIN (>89) Troponin I 0.33 NG/ML (0.02-0.05) 0.30 NG/ML (0.02-0.05) 0.32 NG/ML (0.02-0.05) B-Type Natriuretic Peptide 447 PG/ML (0-100) Lipase 690 U/L (73-393) Eosinophils # (Auto) 0.5 TH/MM3 (0-0.4) 0.6 TH/MM3 (0-0.4) Total Protein 5.7 GM/DL (6.4-8.2) Albumin 2.8 GM/DL (3.4-5.0) Test 11/21/17 06:19 Lipase 605 U/L (73-393) Imaging Last Impressions Abdomen CT 11/20/17 0000 Signed Impressions: Service Date/Time: Monday, November 20, 2017 15:24 - CONCLUSION: 1. Examination quality is degraded secondary to respiratory motion artifact. The common bile duct measures up to 8 mm in diameter which is similar to the prior CT from 2016. Additionally, no calcified stone is seen in the common duct and no distal obstructing mass is appreciated within limitation of motion artifact. Also, there is no intrahepatic bile duct dilatation. It would be reasonable to consider a followup pancreas protocol CT on an elective outpatient basis for followup when the patient is able to better able to cooperate with the examination. 2. Cholelithiasis. 3. Small bilateral pleural effusions, right larger than left. 4. Nonacute findings include small hiatal hernia and severe atherosclerotic disease. Eliazar Al MD Gall Bladder Ultrasound 11/19/17 0000 Signed Impressions: Service Date/Time: Sunday, November 19, 2017 22:48 - CONCLUSION: 1. Gallbladder sludge with slight gallbladder wall thickening. 2. Central common bile duct is prominent measuring up to 10 mm. No evidence for intraluminal stone or mass in the visualized central common bile duct. No intrahepatic ductal dilatation. As such, the findings are somewhat nonspecific. Differential considerations include distal CBD lesion, ampullary lesion or occult pancreatic mass. Consider MRCP or ERCP examination for better evaluation. 3. Increased renal cortical echogenicity consistent with medical renal disease. Wai Russo MD Chest X-Ray 11/18/17 1730 Signed Impressions: Service Date/Time: Saturday, November 18, 2017 18:02 - CONCLUSION: 1. Cardiomegaly with probable mild interstitial edema pattern and trace pleural fluid characteristic of mild congestive heart failure. No pneumothorax. Sajan Whitmore MD PE at Discharge GENERAL: Male, lying in bed CARDIOVASCULAR: Regular rate and rhythm without murmurs, gallops, or rubs. RESPIRATORY: Clear to auscultation. Breath sounds equal bilaterally. No wheezes , rales, or rhonchi. GASTROINTESTINAL: Abdomen soft, non-tender, nondistended. No hepato-splenomegaly , or palpable masses. No guarding. MUSCULOSKELETAL: Extremities without clubbing, cyanosis, or edema. No joint tenderness, effusion, or edema noted. No calf tenderness. NEUROLOGICAL: Awake and alert. Cranial nerves II through XII intact. Motor and sensory grossly within normal limits. Normal speech. Pt update on day of discharge Feels better, ambulates. No n/v/d/c. Denies chest pain or fevers. Lipase trending down. No abd pain . Eating well. Hospital Course Acute pancreatitis Lipase elevated 600s on admission. Lipase was back to normal y 11/20. However today lipase is back up in 600s. GI recommends lipase going down before he is discharged. Lipase trending down eating well. no and pain cleared by GI for DC to follow up as OP The patient has no pain at this time. Diet was advanced to normal diet Monitor lipase. US reviewed findings consistent with distal common bile duct lesion, ampullary lesion or occult pancreatic mass. No evidence of stone or mass on the common bile duct. Gallbladder with sludge. Consult GI for evaluation, appreciate recommendations. Might consider MRCP. However patient has an AICD and not able to have MRCP. Plan for CT with contrast however patient function not at baseline and might worsen, might consider low-dose dye will discuss with radiology. Hypoglycemia resolved. Monitor blood sugar Chest pain/elevated troponin/CHF Troponin 0.33, likely baseline for the patient BNP 447, baseline EKG shows sinus rhythm with first-degree AV block and T-wave inversions, personally reviewed ACS rule out pending; serial troponins/EKGs Patient's public relations associate is Dr. Miner, consulted cleared patient for DC to f./u as OP Acute on chronic renal insufficiency Creatinine 2.13, baseline between 1.5-1.8. improved Gentle IV fluid hydration. DCd Monitor renal function Diabetes mellitus SSI Monitor blood glucose Hypertension/hypothyroidism/hyperlipidemia Continue home medications once reconciled Patient improved, eating well no abd pain. Lipase is trending down. Patient improved, cleared by GI and cardio for DC Was DC home in stable condiiton to follow up as OP with PCP and consultants. Pt Condition on Discharge: Stable Discharge Disposition: Discharge Home Discharge Time: > 30 minutes Discharge Instructions DIET: Follow Instructions for: Heart Healthy Diet Activities you can perform: Regular-No Restrictions Follow up Referrals: Appointment for Follow Up @ GASTROENTEROLOGY Cardiology - 2 Weeks Cardiology @ [facility] Gastroenterology - 2 Weeks PCP Follow-up - 2-3 Days PCP Follow-up @ [facility] New Medications: Amlodipine (Norvasc) 5 Mg Tab 5 MG PO DAILY for Blood Clot Prevention, #[address] (Aspirin DR) 81 Mg Tabdr 81 MG PO DAILY for Blood Clot Prevention, #30 TAB Carvedilol (Coreg) 3.125 Mg Tab 3.125 MG PO Q12HR for Blood Pressure Management, #60 TAB Isosorbide Mononitrate ER (Isosorbide Mononitrate ER) 30 Mg Matt 30 MG PO DAILY@07 for Blood Pressure Management, #30 TAB Rivaroxaban (Xarelto) 15 Mg Tab 15 MG PO DAILY for Blood Clot Prevention, #60 TAB Continued Medications: Amiodarone (Amiodarone) 200 Mg Tab 400 MG PO DAILY for ventricular fibrillation, #31 TAB Atorvastatin (Atorvastatin) 40 Mg Tab 40 MG PO HS for Cholesterol Management, #31 TAB Sisi Santillan MD Nov 21, 2017 09:17
--- NOTE | 2017-11-21 14:02 | HHI.GIFU ---
Subjective Remarks pt resting in bed, asking to go home. tolerating diet. Denies any pain. (Franny Santana) Objective Vitals I&O Vital Signs Date Time Temp Pulse Resp B/P (MAP) Pulse Ox O2 Delivery O2 Flow Rate FiO2 11/21/17 12:06 98.2 60 17 118/59 (78) 96 11/21/17 12:00 60 11/21/17 08:06 98.2 60 17 134/64 (87) 96 11/21/17 08:00 60 11/21/17 07:06 Room Air 11/21/17 04:00 97.6 63 18 123/64 (83) 11/21/17 04:00 Room Air 11/21/17 00:00 60 11/21/17 00:00 Room Air 11/20/17 23:30 98.1 62 18 116/61 (79) 96 11/20/17 20:02 60 11/20/17 20:00 Room Air 11/20/17 20:00 96.0 60 20 118/60 (79) 95 11/20/17 16:25 98.5 60 17 122/69 (86) 95 I/O 11/20/17 11/20/17 11/20/17 11/21/17 11/21/17 11/21/17 07:00 15:00 23:00 07:00 15:00 23:00 Intake Total 600 ml 1240 ml Output Total 1450 ml 300 ml 900 ml Balance -1450 ml 300 ml 340 ml Intake Oral 600 ml 240 ml IV Total 1000 ml Output Urine Total 1450 ml 300 ml 900 ml # Voids 2 # Bowel Movements 0 0 Laboratory Laboratory Tests Test 11/21/17 06:19 Lipase 605 Imaging Last Impressions Abdomen CT 11/20/17 0000 Signed Impressions: Service Date/Time: Monday, November 20, 2017 15:24 - CONCLUSION: 1. Examination quality is degraded secondary to respiratory motion artifact. The common bile duct measures up to 8 mm in diameter which is similar to the prior CT from 2016. Additionally, no calcified stone is seen in the common duct and no distal obstructing mass is appreciated within limitation of motion artifact. Also, there is no intrahepatic bile duct dilatation. It would be reasonable to consider a followup pancreas protocol CT on an elective outpatient basis for followup when the patient is able to better able to cooperate with the examination. 2. Cholelithiasis. 3. Small bilateral pleural effusions, right larger than left. 4. Nonacute findings include small hiatal hernia and severe atherosclerotic disease. Eliazar Al MD Gall Bladder Ultrasound 11/19/17 0000 Signed Impressions: Service Date/Time: Sunday, November 19, 2017 22:48 - CONCLUSION: 1. Gallbladder sludge with slight gallbladder wall thickening. 2. Central common bile duct is prominent measuring up to 10 mm. No evidence for intraluminal stone or mass in the visualized central common bile duct. No intrahepatic ductal dilatation. As such, the findings are somewhat nonspecific. Differential considerations include distal CBD lesion, ampullary lesion or occult pancreatic mass. Consider MRCP or ERCP examination for better evaluation. 3. Increased renal cortical echogenicity consistent with medical renal disease. Wai Russo MD Chest X-Ray 11/18/17 1730 Signed Impressions: Service Date/Time: Saturday, November 18, 2017 18:02 - CONCLUSION: 1. Cardiomegaly with probable mild interstitial edema pattern and trace pleural fluid characteristic of mild congestive heart failure. No pneumothorax. Sajan Whitmore MD Physical Exam HEENT: PERRL; normocephalic; atraumatic; no jaundice. CHEST: CTA CARDIAC: RRR ABDOMEN: Soft, nondistended, nontender; no hepatosplenomegaly; bowel sounds are present in all four quadrants. EXTREMITIES: No clubbing, cyanosis, or edema. SKIN: Normal; no rash; no jaundice. 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 (Franny Santana FACULTY RESEARCH ASSISTANT) Assessment and Plan Plan Plan ASSESSMENT - epigastric pain, elevated lipase - could be pancreatitis, pt asymptomatic at this time. no LFT derangement US showed prominent CBD 10mm, GB sludge, no evidence stone in CBD. cannot have MRCP, has AICD - chest pain, elevated troponin - Dr Miner following, pending interrogation AICD 11/21/17 pt denies any pain. his lipase went up from 373 to 605. He is eating low fat diet. anxious to go home PLAN - rck lipase - low fat diet - monitor labs - supportive care - ok to d/c when starts to trend down pt seen by myself and Dr Christopher and this note is on his behalf (Franny Santana) Plan Patient was seen and examined, agree with above-noted, no abdominal pain but patient still has elevation of his lipase, so will follow-up 1 day and see how he is tolerating the food if the lab trending down tomorrow then he can go home from GI standpoint (Xenia Christopher MD) Franny Santana Nov 21, 2017 14:02 Xenia Christopher MD Nov 21, 2017 17:41
--- NOTE | 2017-11-21 16:22 | HHI.PR ---
Subjective Remarks Patient is in bed. He appears in not acute distress. Says he does not have any abdominal pain. He is eating without any trouble. No nausea or vomiting no diarrhea or constipation. He does not have any abdominal pain. However lipase is noted with elevated today. Repeat tomorrow. Objective Vitals Vital Signs Date Time Temp Pulse Resp B/P (MAP) Pulse Ox O2 Delivery O2 Flow Rate FiO2 11/21/17 12:06 98.2 60 17 118/59 (78) 96 11/21/17 12:00 60 11/21/17 08:06 98.2 60 17 134/64 (87) 96 11/21/17 08:00 60 11/21/17 07:06 Room Air 11/21/17 04:00 97.6 63 18 123/64 (83) 11/21/17 04:00 Room Air 11/21/17 00:00 60 11/21/17 00:00 Room Air 11/20/17 23:30 98.1 62 18 116/61 (79) 96 11/20/17 20:02 60 11/20/17 20:00 Room Air 11/20/17 20:00 96.0 60 20 118/60 (79) 95 11/20/17 16:25 98.5 60 17 122/69 (86) 95 I/O 11/20/17 11/20/17 11/20/17 11/21/17 11/21/17 11/21/17 07:00 15:00 23:00 07:00 15:00 23:00 Intake Total 600 ml 1240 ml Output Total 1450 ml 300 ml 900 ml Balance -1450 ml 300 ml 340 ml Intake Oral 600 ml 240 ml IV Total 1000 ml Output Urine Total 1450 ml 300 ml 900 ml # Voids 2 # Bowel Movements 0 0 Result Diagram: 11/20/17 0605 11/20/17 0605 Imaging Last Impressions Abdomen CT 11/20/17 0000 Signed Impressions: Service Date/Time: Monday, November 20, 2017 15:24 - CONCLUSION: 1. Examination quality is degraded secondary to respiratory motion artifact. The common bile duct measures up to 8 mm in diameter which is similar to the prior CT from 2016. Additionally, no calcified stone is seen in the common duct and no distal obstructing mass is appreciated within limitation of motion artifact. Also, there is no intrahepatic bile duct dilatation. It would be reasonable to consider a followup pancreas protocol CT on an elective outpatient basis for followup when the patient is able to better able to cooperate with the examination. 2. Cholelithiasis. 3. Small bilateral pleural effusions, right larger than left. 4. Nonacute findings include small hiatal hernia and severe atherosclerotic disease. Eliazar Al MD Gall Bladder Ultrasound 11/19/17 0000 Signed Impressions: Service Date/Time: Sunday, November 19, 2017 22:48 - CONCLUSION: 1. Gallbladder sludge with slight gallbladder wall thickening. 2. Central common bile duct is prominent measuring up to 10 mm. No evidence for intraluminal stone or mass in the visualized central common bile duct. No intrahepatic ductal dilatation. As such, the findings are somewhat nonspecific. Differential considerations include distal CBD lesion, ampullary lesion or occult pancreatic mass. Consider MRCP or ERCP examination for better evaluation. 3. Increased renal cortical echogenicity consistent with medical renal disease. Wai Russo MD Chest X-Ray 11/18/17 1730 Signed Impressions: Service Date/Time: Saturday, November 18, 2017 18:02 - CONCLUSION: 1. Cardiomegaly with probable mild interstitial edema pattern and trace pleural fluid characteristic of mild congestive heart failure. No pneumothorax. Sajan Whitmore MD Objective Remarks GENERAL: Male, lying in bed CARDIOVASCULAR: Regular rate and rhythm without murmurs, gallops, or rubs. RESPIRATORY: Clear to auscultation. Breath sounds equal bilaterally. No wheezes , rales, or rhonchi. GASTROINTESTINAL: Abdomen soft, non-tender, nondistended. No hepato-splenomegaly , or palpable masses. No guarding. MUSCULOSKELETAL: Extremities without clubbing, cyanosis, or edema. No joint tenderness, effusion, or edema noted. No calf tenderness. NEUROLOGICAL: Awake and alert. Cranial nerves II through XII intact. Motor and sensory grossly within normal limits. Normal speech. Procedures none A/P Assessment and Plan Acute pancreatitis Lipase elevated 600s on admission. Lipase was back to normal yesterday 11/20. However today lipase is back up in 600s. GI recommends lipase going down before he is discharged. The patient has no pain at this time. Diet was advanced to normal diet Monitor lipase. US reviewed findings consistent with distal common bile duct lesion, ampullary lesion or occult pancreatic mass. No evidence of stone or mass on the common bile duct. Gallbladder with sludge. Consult GI for evaluation, appreciate recommendations. Might consider MRCP. However patient has an AICD and not able to have MRCP. Plan for CT with contrast however patient function not at baseline and might worsen, might consider low-dose dye will discuss with radiology. Hypoglycemia resolved. 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 Miner, consulted cleared patient for DC to f./u as OP Acute on chronic renal insufficiency Creatinine 2.13, baseline between 1.5-1.8. improved Gentle IV fluid hydration. DCd Monitor renal function Diabetes mellitus SSI Monitor blood glucose Hypertension/hypothyroidism/hyperlipidemia Continue home medications once reconciled FEN Electrolytes: monitor and replete prn Heparin Possible discharge tomorrow if lipase is trending down. Sisi Santillan MD Nov 21, 2017 16:22
[2017-11-21] MEDS: ATORVASTATIN 40 MG TAB PO SCH (21:16)
[2017-11-22] VITALS: BP 118/56; PULSE 60; RESP 18; TEMP 98; O2SAT 95
[2017-11-22 04:00] VITALS: BP 128/69; PULSE 63; RESP 20; TEMP 98.5; O2SAT 94
[2017-11-22] MEDS: SODIUM CHLOR 0.9% 1000 ML INJ 1,000 ML IV SCH (04:14)
[2017-11-22] MEDS: ISOSORBIDE MONONITRATE 30 MG CR TAB (IMDUR) PO SCH (05:57)
[2017-11-22 07:52] VITALS: PULSE 60
[2017-11-22 08:00] VITALS: BP 135/69; PULSE 62; RESP 18; TEMP 98.5; O2SAT 93
[2017-11-22] MEDS: INSULIN ASPART SUPPLEMENTAL SCALE SQ SCH ×2 (08:00→12:47)
[2017-11-22 08:04] LABS: AUTOMATED NEUTROPHIL # 4.1 TH/MM3 (1.8-7.7); BASOPHIL # 0.1 TH/MM3 (0-0.2); BASOPHIL % 0.6 % (0.0-2.0); EOSINOPHIL # 0.4 TH/MM3 (0-0.4); EOSINOPHIL % 5.4 % (0.0-4.0); HEMATOCRIT 27.4 % (39.0-51.0); HEMOGLOBIN 9.3 GM/DL (13.0-17.0); LYMPH % 34.8 % (9.0-44.0); LYMPHOCYTE # 2.8 TH/MM3 (1.0-4.8); MEAN CELL VOLUME 89.4 FL (80.0-100.0); MEAN CORPUSCULAR HEMOGLOBIN 30.1 PG (27.0-34.0); MEAN CORPUSCULAR HGB CONC 33.7 % (32.0-36.0); MONO % 8.8 % (0.0-8.0); MONOCYTE # 0.7 TH/MM3 (0-0.9); NEUT % 50.4 % (16.0-70.0); PLATELET COUNT 174 TH/MM3 (150-450); RED BLOOD COUNT 3.07 MIL/MM3 (4.50-5.90); RED CELL DISTRIBUTION WIDTH 16.3 % (11.6-17.2); WHITE BLOOD COUNT 8.1 TH/MM3 (4.0-11.0)
[2017-11-22 08:31] LABS: BICARBONATE 21.2 MEQ/L (21.0-32.0); CALCIUM 8.2 MG/DL (8.5-10.1); CREATININE 1.73 MG/DL (0.60-1.30)
[2017-11-22] MEDS: RIVAROXABAN 15 MG TAB PO SCH (09:09)
[2017-11-22] MEDS: CARVEDILOL 3.125 MG TAB PO SCH (09:09)
[2017-11-22] MEDS: AMIODARONE 200 MG TAB PO SCH (09:09)
[2017-11-22] MEDS: amLODIPine BESYLATE 5 MG TAB PO SCH (09:10)
[2017-11-22] MEDS: SODIUM CHLORIDE 0.9% FLUSH 10 ML FLUSH IV FLUSH SCH (09:10)
[2017-11-22] MEDS: ASPIRIN EC 81 MG TABEC PO SCH (09:10)
[2017-11-22 11:45] VITALS: BP 150/71; PULSE 89; RESP 18; TEMP 98; O2SAT 95
== END 2017-11-22 13:23 | disposition home or self-care (01) | DRG 439 ==
LOC: NEPC 17:25 → NEDA 19:26 → N04B 22:05
PROVIDERS: ADMIT Hospitalist; ATTEND Hospitalist
DX: K85.90 Acute pancreatitis without necrosis or infection, unspecified (principal); N17.9 Acute kidney failure, unspecified; E11.22 Type 2 diabetes mellitus with diabetic chronic kidney disease; I13.0 Hypertensive heart and chronic kidney disease with heart failure and stage 1 through stage 4 chronic kidney disease, or unspecified chronic kidney disease; E11.649 Type 2 diabetes mellitus with hypoglycemia without coma; I50.9 Heart failure, unspecified; N18.3 Chronic kidney disease, stage 3 (moderate); I48.0 Paroxysmal atrial fibrillation; I25.10 Atherosclerotic heart disease of native coronary artery without angina pectoris; Z95.1 Presence of aortocoronary bypass graft; I25.2 Old myocardial infarction; I25.5 Ischemic cardiomyopathy; Z95.810 Presence of automatic (implantable) cardiac defibrillator; E78.5 Hyperlipidemia, unspecified; E03.9 Hypothyroidism, unspecified; R74.8 Abnormal levels of other serum enzymes; R07.89 Other chest pain; Z87.891 Personal history of nicotine dependence
CPT/HCPCS: 71046; 74160; 76705; 80048; 80053; 82550; 82948; 83690; 83735; 83880; 84484; 85025; 85610; 85730; 93005; 93306; 96374; J1644; J1815; J2270; J2405; J7030; J7040; J7042; Q9967

== ENCOUNTER 2018-04-13 10:15 | Inpatient (IN) ==
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
--- NOTE | 2018-04-13 11:06 | XR ---
EXAM DATE: 04/13/2018 11:00 AM EDT AGE/SEX: 72 years / Male INDICATIONS: Right hip pain. Evaluate for possible fracture. CLINICAL DATA: This is the patient's initial encounter. Patient reports that signs and symptoms have been present for 1 day and indicates a pain score of 8/10. MEDICAL/SURGICAL HISTORY: . Hypercholesterolemia. Hypertension. Anticoagulant therapy. Chest pa in. Diabetes. . CABG. Pacemaker. Left leg surgery. COMPARISON: No prior exams available for comparison. FINDINGS: AP and frog-leg lateral views the left hip were obtained as well as an AP view of the pelvis. There i s a vertical linear lucent line in the medial supra-acetabular region on the AP view. The femoral hea d and neck are intact. The intertrochanteric region appears intact as well. The left pubic rami are i ntact. There is diffuse patchy osteopenia. The soft tissues are unremarkable. Mild degenerative disc changes noted in the lower lumbar spine with scoliosis. CONCLUSION: 1. Vertical linear lucent line in the medial supra-acetabular region of concern for fracture. 2. The femoral head and neck are intact in appearance. Electronically signed by: Navarro Garcia MD 04/13/2018 11:05 AM EDT
[2018-04-13] MEDS ORDERED: Morphine Inj 4 MG/ML Vial IV.PUSH ONE (12:21)
[2018-04-13 13:26] LABS: Baso # (Auto) 0.1 th/mm3 (0.0-0.2); Baso % (Auto) 0.4 % (0.0-2.0); Eos # (Auto) 0.1 th/mm3 (0.0-0.4); Eos % (Auto) 1.1 % (0.0-4.0); Hematocrit 32.7 % (39.0-51.0); Hemoglobin 10.7 gm/dL (13.0-17.0); Mean Corpuscular HGB Conc 32.6 % (32.0-36.0); Mean Corpuscular Hemoglobin 28.8 pg (27.0-34.0); Mean Corpuscular Volume 88.3 fL (80.0-100.0); Mean Platelet Volume 9.4 fL (7.0-11.0); Mono % (Auto) 7.9 % (0.0-8.0); Neut # (Auto) 9.1 th/mm3 (1.8-7.7); Neut % (Auto) 74.6 % (16.0-70.0); Platelet Count 234 th/mm3 (150-450); Red Cell Distribution Width 16.2 % (11.6-17.2); White Blood Count 12.2 th/mm3 (4.0-11.0)
[2018-04-13 13:37] LABS: Activated Partial Thrombo Time 27.1 sec (24.3-30.1); INR 1.4 Ratio; Prothrombin Time 13.8 sec (9.8-11.6)
--- NOTE | 2018-04-13 13:52 | CT ---
EXAM DATE: 04/13/2018 1:33 PM EDT AGE/SEX: 72 years / Male INDICATIONS: Left hip pain. Fell today CLINICAL DATA: This is the patient's initial encounter. Patient reports that signs and symptoms have been present for 1 day and indicates a pain score of 8/10. MEDICAL/SURGICAL HISTORY: Cardiovascular disease. Coronary artery stent. RADIATION DOSE: 7.17 CTDI (mGy) COMPARISON: [facility] [place], CT ABDOMEN & PELVIS W/O CONTRAST, 03/15/2016. . TECHNIQUE: Multiple contiguous axial images were acquired using a multirow detector CT scanner witho ut contrast. Multiplanar reconstruction was performed in the sagittal and coronal planes. Using aut omated exposure control and adjustment of the mA and/or kV according to patient size, radiation dose was kept as low as reasonably achievable to obtain optimal diagnostic quality images. DICOM format i mage data is available electronically for review and comparison. FINDINGS: There is a fracture through the superior acetabulum extending into the anterior column and slightly i nto the posterior column along its superior aspect. The fracture is not significantly displaced. No f racture involving the proximal left femur is identified. Pubic rami appear to be intact. CONCLUSION: 1. Relatively nondisplaced acetabular fracture as above. Electronically signed by: Sajan Whitmore MD 04/13/2018 1:50 PM EDT
[2018-04-13 14:00] LABS: Calcium 7.6 mg/dL (8.5-10.1); Carbon Dioxide 25.2 meq/L (21.0-32.0); Potassium 5.2 meq/L (3.5-5.1)
[2018-04-13] MEDS ORDERED: Acetaminophen 325 MG Tablet PO PRN (16:53)
[2018-04-13] MEDS ORDERED: Temazepam 15 MG Capsule PO PRN (16:53)
[2018-04-13] MEDS ORDERED: Bisacodyl 10 MG Supp RECTAL PRN (16:53)
[2018-04-13] MEDS ORDERED: Naloxone Inj 0.4 MG/ML Vial IV.PUSH PRN (16:58)
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
[2018-04-13] MEDS ORDERED: Dextrose 50% in Water 50 ML Vial IV.PUSH PRN (18:09)
[2018-04-13] MEDS: Morphine Inj 4 MG/ML Vial IV.PUSH PRN (21:14)
[2018-04-13] MEDS: Carvedilol 12.5 MG Tablet PO SCH (21:14)
[2018-04-13] MEDS: Senna/Docusate Sodium 8.6/50 MG Tablet PO SCH (21:15)
[2018-04-13] MEDS: Insulin NovoLOG Aspart Correctional Sugar Inj SQ SCH (21:27)
[2018-04-14] MEDS: Morphine Inj 4 MG/ML Vial IV.PUSH PRN (04:08)
[2018-04-14] MEDS: Sod Chloride 0.9% Inj 1,000 ML IV.CONT SCH ×3 (04:08→17:03)
[2018-04-14 05:47] LABS: Baso % (Auto) 0.2 % (0.0-2.0); Eos # (Auto) 0.1 th/mm3 (0.0-0.4); Eos % (Auto) 0.7 % (0.0-4.0); Hematocrit 28.3 % (39.0-51.0); Hemoglobin 9.6 gm/dL (13.0-17.0); Lymph # (Auto) 2.4 th/mm3 (1.0-4.8); Lymph % (Auto) 28.9 % (9.0-44.0); Mean Corpuscular HGB Conc 33.8 % (32.0-36.0); Mean Corpuscular Hemoglobin 29.7 pg (27.0-34.0); Mean Corpuscular Volume 87.8 fL (80.0-100.0); Mean Platelet Volume 8.9 fL (7.0-11.0); Mono % (Auto) 11.9 % (0.0-8.0); Neut # (Auto) 4.8 th/mm3 (1.8-7.7); Neut % (Auto) 58.3 % (16.0-70.0); Platelet Count 188 th/mm3 (150-450); Red Blood Count 3.22 mil/mm3 (4.50-5.90); White Blood Count 8.2 th/mm3 (4.0-11.0)
[2018-04-14 06:10] LABS: Alanine Aminotransferase 27 U/L (12-78); Albumin 2.1 g/dL (3.4-5.0); Anion Gap 6 meq/L (5-15); Aspartate Aminotransferase 23 U/L (15-37); Blood Urea Nitrogen 19 mg/dL (7-18); Calcium 7.5 mg/dL (8.5-10.1); Carbon Dioxide 23.2 meq/L (21.0-32.0); Chloride 112 meq/L (98-107); Glomerular Filtration Rate 36 mL/min (>89); Glucose,Random 134 mg/dL (74-106); Potassium 4.6 meq/L (3.5-5.1); Sodium 141 meq/L (136-145)
[2018-04-14 06:20] LABS: Alkaline Phosphatase 78 U/L (45-117); Total Protein 5.3 g/dL (6.4-8.2)
[2018-04-14] MEDS: Isosorbide Mononitrate 30 MG ER 24HR Tablet (Imdur) PO SCH (06:48)
[2018-04-14 08:33] LABS: Magnesium 2.2 mg/dL (1.5-2.5); Phosphorus 3.7 mg/dL (2.5-4.9)
--- NOTE | 2018-04-14 08:47 | P.PNOP ---
Subjective Interval history: Patient had a mechanical fall. Complains of pain to left hip. 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 Physical Exam Vital signs: Vital Signs 04/13/18 10:21 04/13/18 10:28 04/13/18 14:27 Temperature 98.2 F 98.2 F 99.3 F Pulse Rate 62 62 70 Respiratory Rate 18 18 18 Blood Pressure 114/57 L 114/57 L 137/65 Pulse Oximetry 97 97 95 04/13/18 20:00 04/14/18 00:00 04/14/18 04:00 Temperature 98.3 F 98.0 F 97.9 F Pulse Rate 69 60 60 Respiratory Rate 17 17 18 Blood Pressure 113/59 L 109/59 L 112/57 L Pulse Oximetry 94 L 95 93 L Intake & Output 04/13/18 04/14/18 04/14/18 18:59 06:59 18:59 Intake Total 1000 / 1000 Output Total 600 / 600 Balance 400 / 400 Weight 57.153 kg 57.2 kg Intake: IV 1000 / 1000 NS Inj 1,000 ML @ 100 mls/hr IV 1000 / 1000 .CONT .Q10H BARBI Rx#:[id number] Output: Urine 600 / 600 Other: Date of Last Bowel Movement 04/12/18 Narrative: Bilateral upper extremities: Full range of motion neurovascularly intact Right lower extremity: Full range of motion and neurovascularly intact Left lower extremity: Pain with movement of hip. No pain with knee or ankle range of motion. Distally intact sensation with good capillary refills. He is active dorsiflexion and plantarflexion of foot Results - Labs CBC & Chem 7: 04/14/18 05:20 04/14/18 05:20 Laboratory Results - last 24 hr 04/13/18 04/13/18 04/13/18 12:58 12:58 12:58 WBC 12.2 H RBC 3.70 L Hgb 10.7 L Hct 32.7 L MCV 88.3 MCH 28.8 MCHC 32.6 RDW 16.2 Plt Count 234 MPV 9.4 Neut % (Auto) 74.6 H Lymph % (Auto) 16.0 Hendry % (Auto) 7.9 Eos % (Auto) 1.1 Baso % (Auto) 0.4 Neut # (Auto) 9.1 H Lymph # (Auto) 2.0 Hendry # (Auto) 1.0 H Eos # (Auto) 0.1 Baso # (Auto) 0.1 WBC Differential . Differential Comment Auto diff final PT 13.8 H INR 1.4 APTT 27.1 Sodium 138 Potassium 5.2 H Chloride 109 H Carbon Dioxide 25.2 Anion Gap 4 L BUN 20 H Creatinine 2.19 H Estimated GFR 30 L POC Glucose Random Glucose 230 H Calcium 7.6 L Phosphorus Magnesium Total Bilirubin AST ALT Alkaline Phosphatase Total Protein Albumin TSH Free T4 04/13/18 04/14/18 04/14/18 21:21 05:20 05:20 WBC 8.2 RBC 3.22 L Hgb 9.6 L Hct 28.3 L MCV 87.8 MCH 29.7 MCHC 33.8 RDW 16.0 Plt Count 188 MPV 8.9 Neut % (Auto) 58.3 Lymph % (Auto) 28.9 Hendry % (Auto) 11.9 H Eos % (Auto) 0.7 Baso % (Auto) 0.2 Neut # (Auto) 4.8 Lymph # (Auto) 2.4 Hendry # (Auto) 1.0 H Eos # (Auto) 0.1 Baso # (Auto) 0.0 WBC Differential . Differential Comment Auto diff final PT INR APTT Sodium Potassium Chloride Carbon Dioxide Anion Gap BUN Creatinine Estimated GFR POC Glucose 151 H Random Glucose Calcium Phosphorus 3.7 Magnesium 2.2 Total Bilirubin AST ALT Alkaline Phosphatase Total Protein Albumin TSH Free T4 04/14/18 04/14/18 04/14/18 05:20 05:20 07:25 WBC RBC Hgb Hct MCV MCH MCHC RDW Plt Count MPV Neut % (Auto) Lymph % (Auto) Hendry % (Auto) Eos % (Auto) Baso % (Auto) Neut # (Auto) Lymph # (Auto) Hendry # (Auto) Eos # (Auto) Baso # (Auto) WBC Differential Differential Comment PT INR APTT Sodium 141 Potassium 4.6 Chloride 112 H Carbon Dioxide 23.2 Anion Gap 6 BUN 19 H Creatinine 1.83 H Estimated GFR 36 L POC Glucose 144 H Random Glucose 134 H Calcium 7.5 L Phosphorus Magnesium Total Bilirubin 0.5 AST 23 ALT 27 Alkaline Phosphatase 78 Total Protein 5.3 L Albumin 2.1 L TSH 10.200 H Free T4 1.38 - Imaging Impressions Hip X-Ray 04/13/18 10:22 CONCLUSION: 1. Vertical linear lucent line in the medial supra-acetabular region of concern for fracture. 2. The femoral head and neck are intact in appearance. Hip CT 04/13/18 12:21 CONCLUSION: 1. Relatively nondisplaced acetabular fracture as above. Assessment and Plan - Assessment and Plan Left acetabulum fracture minimal displacement We will treat this nonoperatively. It is patient's responsibility to be toe- touch weightbearing on the left lower extremity. We will also avoid active leg lifts with physical therapy. He understands through the use of the technical education teacher that any weightbearing activities could place pressure across the fracture and could displace the acetabular joint. If this did occur surgical intervention may be necessary. He understands that he will be toe-touch weightbearing for the next 3 months. Physical therapy will work with walker training. Due to his restrictions discharge plan is to be secured to either discharge to home with home health or to rehabilitation. All questions were answered. Patient was also seen and examined by Dr. Garg.
[2018-04-14] MEDS ORDERED: amLODIPine 5 MG Tablet PO SCH (09:00)
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
[2018-04-14] MEDS: Insulin NovoLOG Aspart Correctional Sugar Inj SQ SCH ×3 (10:00→17:04)
[2018-04-14] MEDS: Carvedilol 12.5 MG Tablet PO SCH (10:01)
[2018-04-14] MEDS: Senna/Docusate Sodium 8.6/50 MG Tablet PO SCH (10:08)
[2018-04-14] MEDS: Rivaroxaban 10 MG Tablet PO SCH (10:08)
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
--- NOTE | 2018-04-14 13:51 | P.DCO ---
- Diagnosis (1) Acetabulum fracture, left - Physical Therapy Order: Evaluate and treat, Strength and gait training - Certification I have seen patient Epifanio Arguello on 04/14/18. My clinical findings support the need for the requested home health care services because: Limited mobility due to disease progression, High risk of falls I certify that my clinical findings support that this patient is homebound because: Unsteady gait/balance (1) Acetabulum fracture, left Qualifiers: Encounter type: initial encounter
--- NOTE | 2018-04-15 00:24 | ECG ---
Date Performed: 04/13/2018 Time Performed: 17:21:00 PTAGE: 72 years EKG: Sinus rhythm WITH FIRST DEGREE AV BLOCK MODERATE INTRAVENTRICULAR CONDUCTION DELAY ST DEVIATION AND MARKED T-WAVE ABNORMALITY, CONSIDER LATERAL ISCHEMIA ST DEVIATION AND MODERATE T-WAVE ABNORMALITY, CONSIDER INFERI OR ISCHEMIA ABNORMAL ECG PREVIOUS TRACING : 11/18/2017 17.44 Since the previous tracing, no significant change noted DOCTOR: Darren Orr Interpretating Date/Time 04/15/2018 00:23:54
[2018-04-15] MEDS: Senna/Docusate Sodium 8.6/50 MG Tablet PO SCH ×3 (02:12→21:59)
[2018-04-15] MEDS: Insulin NovoLOG Aspart Correctional Sugar Inj SQ SCH ×5 (02:12→22:00)
[2018-04-15] MEDS: Carvedilol 12.5 MG Tablet PO SCH ×3 (02:13→21:59)
[2018-04-15 06:25] LABS: Calcium 7.4 mg/dL (8.5-10.1); Carbon Dioxide 22.2 meq/L (21.0-32.0); Potassium 4.6 meq/L (3.5-5.1)
--- NOTE | 2018-04-15 06:43 | P.PNOP ---
Subjective Interval history: Resting comfortably. Continues to have pain over left hip and also complains of pain of left elbow Physical Exam Vital signs: Vital Signs 04/14/18 08:00 04/14/18 11:23 04/14/18 11:53 Temperature 97.8 F Pulse Rate 60 Respiratory Rate 18 18 16 Blood Pressure 112/56 L Pulse Oximetry 16 L 04/14/18 12:00 04/14/18 16:00 04/14/18 17:02 Temperature 98 F 98.4 F Pulse Rate 60 Respiratory Rate 16 16 16 Blood Pressure 91/51 L 127/59 L Pulse Oximetry 96 92 L 04/14/18 17:32 04/14/18 20:00 04/14/18 23:25 Temperature 98.2 F Pulse Rate 60 Respiratory Rate 18 16 16 Blood Pressure 107/57 L Pulse Oximetry 93 L 04/15/18 00:00 04/15/18 01:30 04/15/18 04:00 Temperature 97.9 F 98.2 F Pulse Rate 52 L 59 L Respiratory Rate 16 16 16 Blood Pressure 122/58 L 128/63 Pulse Oximetry 94 L 95 Intake & Output 04/14/18 04/14/18 04/15/18 06:59 18:59 06:59 Intake Total 1000 / 1000 1000 / 1000 120 / 120 Output Total 600 / 600 100 / 100 Balance 400 / 400 1000 / 1000 Weight 57.2 kg 57 kg 54.6 kg Intake: IV 1000 / 1000 1000 / 1000 NS Inj 1,000 ML @ 100 mls/hr IV 1000 / 1000 1000 / 1000 .CONT .Q10H BARBI Rx#:[id number] Oral 120 / 120 Output: Urine 600 / 600 100 / 100 Other: Date of Last Bowel Movement 04/12/18 04/12/18 04/12/18 # Bowel Movements 0 Weight On Admission 57 kg Narrative: Left upper extremity: He has no pain with shoulder range of motion. He has mild swelling and has tenderness over the olecranon. Distally he has intact sensation with good capillary refills. Is able to fully extend his fingers and make a fist Left lower extremity: Pain with motion of hip. He has no pain with knee or ankle range of motion. Distally intact sensation with active dorsiflexion and plantarflexion of foot Results - Labs CBC & Chem 7: 04/14/18 05:20 04/15/18 04:48 Laboratory Results - last 24 hr 04/14/18 04/14/18 04/14/18 05:20 05:20 05:20 Sodium Potassium Chloride Carbon Dioxide Anion Gap BUN Creatinine Estimated GFR POC Glucose Random Glucose Hemoglobin A1c 7.0 H Calcium Phosphorus 3.7 Magnesium 2.2 Free T4 1.38 04/14/18 04/14/18 04/14/18 07:25 11:25 16:59 Sodium Potassium Chloride Carbon Dioxide Anion Gap BUN Creatinine Estimated GFR POC Glucose 144 H 161 H 156 H Random Glucose Hemoglobin A1c Calcium Phosphorus Magnesium Free T4 04/14/18 04/15/18 23:28 04:48 Sodium 141 Potassium 4.6 Chloride 111 H Carbon Dioxide 22.2 Anion Gap 8 BUN 21 H Creatinine 1.77 H Estimated GFR 38 L POC Glucose 176 H Random Glucose 105 Hemoglobin A1c Calcium 7.4 L* Phosphorus Magnesium Free T4 Assessment and Plan - Assessment and Plan Left acetabulum fracture minimal displacement Toe-touch weightbearing left lower extreme with no active leg lifts or quad set Due to pain in left elbow x-rays will be ordered this morning We will continue to work toward discharge rehab
[2018-04-15 06:45] LABS: Total Protein 5.3 g/dL (6.4-8.2)
[2018-04-15] MEDS: Sod Chloride 0.9% Inj 1,000 ML IV.CONT SCH ×3 (07:19→21:56)
[2018-04-15] MEDS: Rivaroxaban 10 MG Tablet PO SCH (08:20)
[2018-04-15] MEDS: Isosorbide Mononitrate 30 MG ER 24HR Tablet (Imdur) PO SCH (08:20)
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
--- NOTE | 2018-04-15 11:11 | XR ---
EXAM DATE: 04/15/2018 9:25 AM EDT AGE/SEX: 72 years / Male INDICATIONS: Left elbow pain. CLINICAL DATA: This is the patient's subsequent encounter. Patient reports that signs and symptoms h ave been present for 3 days and indicates a pain score of 5/10. MEDICAL/SURGICAL HISTORY: Cardiovascular disease. Coronary artery stent. COMPARISON: No prior exams available for comparison. FINDINGS: Bony structures are intact and in normal alignment. Joints are intact without dislocation or signifi cant arthropathy. Minimal degenerative changes are noted with sclerosis. There is mild osteopenia. So ft tissues are unremarkable. No radiopaque foreign bodies seen. CONCLUSION: 1. Osteopenia and intimal degenerative change. 2. No acute fracture or malalignment. Electronically signed by: Navarro Garcia MD 04/15/2018 11:10 AM EDT
[2018-04-16] MEDS: Sod Chloride 0.9% Inj 1,000 ML IV.CONT SCH ×2 (06:04→20:07)
[2018-04-16] MEDS: Isosorbide Mononitrate 30 MG ER 24HR Tablet (Imdur) PO SCH (06:05)
[2018-04-16] MEDS: Insulin NovoLOG Aspart Correctional Sugar Inj SQ SCH ×4 (08:00→20:46)
[2018-04-16] MEDS: Senna/Docusate Sodium 8.6/50 MG Tablet PO SCH ×2 (08:24→20:49)
[2018-04-16] MEDS: Carvedilol 12.5 MG Tablet PO SCH ×2 (08:24→20:49)
[2018-04-16] MEDS: Rivaroxaban 10 MG Tablet PO SCH (08:24)
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
[2018-04-17 02:16] VITALS: RESP 17
[2018-04-17] MEDS: Sod Chloride 0.9% Inj 1,000 ML IV.CONT SCH (04:37)
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
[2018-04-17 09:43] VITALS: BP 132/61; PULSE 59; TEMP 98.6; O2SAT 97
--- NOTE | 2018-04-17 09:49 | P.DCO ---
- Diagnosis (1) Acetabulum fracture, left - Physical Therapy Order: Evaluate and treat, Improve ambulation, Strength and gait training - Home Health Nursing Order: Medical education, Signs/symptoms of disease process - Certification I have seen patient Epifanio Arguello on 04/17/18. My clinical findings support the need for the requested home health care services because: Limited mobility due to disease progression I certify that my clinical findings support that this patient is homebound because: Unsteady gait/balance (1) Acetabulum fracture, left Qualifiers: Encounter type: initial encounter
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
[2018-04-17] MEDS: Isosorbide Mononitrate 30 MG ER 24HR Tablet (Imdur) PO SCH (11:31)
[2018-04-17] MEDS: Insulin NovoLOG Aspart Correctional Sugar Inj SQ SCH (11:31)
[2018-04-17] MEDS: Senna/Docusate Sodium 8.6/50 MG Tablet PO SCH (11:31)
[2018-04-17] MEDS: Rivaroxaban 10 MG Tablet PO SCH (11:31)
[2018-04-17] MEDS: Carvedilol 12.5 MG Tablet PO SCH (11:31)
[2018-04-18] MEDS ORDERED: Insulin NovoLOG Aspart Correctional Sugar Inj SQ SCH (12:00)
== END 2018-04-17 11:18 | disposition home health service (06) ==
LOC: NEDA 10:15 → NEPD 10:15 → N06 17:50
PROVIDERS: ADMIT Family Medicine; ATTEND Family Medicine